=== PATIENT | female | born 1960 | race Caucasian/White ===

== ENCOUNTER 2020-03-29 16:24 | Outpatient (REF) | payer MEDICARE, MEDICAID, SELFPAY ==
[2020-03-29 17:43] LABS: MANUAL DIFF FLAG NO
[2020-03-29 18:03] LABS: Basophils Percent Auto 0.5 % (0-2); Hematocrit 45.6 % (37-47); Hemoglobin 13.7 g/dl (12.0-16.0); Imm Gran Abs Auto 0.03 X10*3/uL (0.00-0.03); Imm Gran Pct Auto 0.4 % (0.0-0.4); Lymphocytes Absolute Auto 1.7 X10*3/uL (1.2-4.9); Mean Corpuscular Hemoglobin 31.1 pg (27.0-33.0); Mean Corpuscular Volume 103.6 fL (80-98); Mean Platelet Volume 11.6 fL (9.4-12.3); Monocytes Absolute Auto 0.5 X10*3/uL (0.1-1.2); Monocytes Percent Auto 6.9 % (2-11); Neutrophils Absolute Auto 5.3 X10*3/uL (2.0-8.3); Neutrophils Percent Auto 70.2 % (45-73); Platelet Count 179 X10*3/uL (160-400); Red Cell Distribution Width 13.5 % (11.0-16.0); White Blood Count 7.5 X10*3/uL (4.8-10.8)
== END 2020-03-29 16:25 | disposition home or self-care (01) ==
LOC: HO.LABR 16:24
PROVIDERS: Visit Provider Psychiatry & Neurology Child & Adolescent Psychiatry
DX: F25.9 Schizoaffective disorder, unspecified (principal)
CPT/HCPCS: 36415; 85025

== ENCOUNTER 2020-04-29 15:21 | Outpatient (REF) | payer MEDICARE, MEDICAID, SELFPAY ==
[2020-04-29 16:42] LABS: MANUAL DIFF FLAG NO
[2020-04-29 16:49] LABS: Basophils Percent Auto 0.4 % (0-2); Hematocrit 43.7 % (37-47); Hemoglobin 13.1 g/dl (12.0-16.0); Imm Gran Abs Auto 0.03 X10*3/uL (0.00-0.03); Imm Gran Pct Auto 0.4 % (0.0-0.4); Lymphocytes Absolute Auto 1.5 X10*3/uL (1.2-4.9); Mean Corpuscular Hemoglobin 30.8 pg (27.0-33.0); Mean Corpuscular Volume 102.6 fL (80-98); Mean Platelet Volume 11.2 fL (9.4-12.3); Monocytes Absolute Auto 0.4 X10*3/uL (0.1-1.2); Monocytes Percent Auto 5.5 % (2-11); Neutrophils Absolute Auto 4.8 X10*3/uL (2.0-8.3); Neutrophils Percent Auto 71.7 % (45-73); Platelet Count 168 X10*3/uL (160-400); Red Blood Count 4.26 X10*6/uL (4.20-5.50); Red Cell Distribution Width 13.8 % (11.0-16.0); White Blood Count 6.7 X10*3/uL (4.8-10.8)
[2020-04-29 17:17] LABS: Albumin Level 4.2 g/dL (3.5-5.0); Anion Gap 15 (12-20); Blood Urea Nitrogen 24 mg/dL (9-16); Calcium 8.8 mg/dL (8.4-10.2); Carbon Dioxide 25 mmol/L (22-29); Chloride 108 mmol/L (96-108); Estimated Glomerular Filt Rate 23; Magnesium 2.1 mg/dL (1.6-2.6); Phosphorus 3.1 mg/dL (2.7-4.5); Potassium 4.1 mmol/l (3.3-5.1); Sodium 144 mmol/L (135-145)
[2020-04-29 17:41] LABS: Vitamin D 25-OH Total 21.6 ng/mL (>30)
[2020-04-29 18:31] LABS: Renal w Reflex Lab Use Only Order verified
[2020-05-01 10:42] LABS: Calcium (PTHI) 9.1 mg/dL (8.6-10.4); PTHI 141 pg/mL (14-64)
== END 2020-04-29 15:22 | disposition home or self-care (01) ==
LOC: HO.LABR 15:21
PROVIDERS: Absent Provider Internal Medicine Nephrology; PCP Internal Medicine; Visit Provider Psychiatry & Neurology Child & Adolescent Psychiatry
DX: F25.9 Schizoaffective disorder, unspecified (principal); N18.4 Chronic kidney disease, stage 4 (severe)
CPT/HCPCS: 36415; 80051; 81003; 82040; 82043; 82306; 82310; 82565; 83735; 83970; 84100; 84156; 84520; 85025

== ENCOUNTER 2020-05-28 13:13 | Outpatient (REF) | payer MEDICARE, MEDICAID, SELFPAY ==
[2020-05-28 14:07] LABS: MANUAL DIFF FLAG NO
[2020-05-28 14:10] LABS: Basophils Percent Auto 0.4 % (0-2); Hematocrit 42.1 % (37-47); Imm Gran Abs Auto 0.03 X10*3/uL (0.00-0.03); Imm Gran Pct Auto 0.4 % (0.0-0.4); Lymphocytes Absolute Auto 1.5 X10*3/uL (1.2-4.9); Lymphocytes Percent Auto 17.9 % (20-40); Mean Corpuscular HGB Conc 30.9 g/dl (31.0-35.0); Mean Corpuscular Hemoglobin 31.7 pg (27.0-33.0); Mean Corpuscular Volume 102.7 fL (80-98); Mean Platelet Volume 11.4 fL (9.4-12.3); Monocytes Absolute Auto 0.7 X10*3/uL (0.1-1.2); Monocytes Percent Auto 8.6 % (2-11); Neutrophils Absolute Auto 5.9 X10*3/uL (2.0-8.3); Neutrophils Percent Auto 72.7 % (45-73); Platelet Count 168 X10*3/uL (160-400); Red Cell Distribution Width 13.4 % (11.0-16.0); White Blood Count 8.2 X10*3/uL (4.8-10.8)
== END 2020-05-28 13:14 | disposition home or self-care (01) ==
LOC: HO.LABR 13:13
PROVIDERS: PCP Internal Medicine; Visit Provider Psychiatry & Neurology Child & Adolescent Psychiatry
DX: F25.9 Schizoaffective disorder, unspecified (principal)
CPT/HCPCS: 36415; 85025

== ENCOUNTER 2020-06-26 12:55 | Outpatient (REF) | payer MEDICARE, MEDICAID, SELFPAY ==
--- NOTE | 2020-06-26 13:10 | ECG_ITS ---
Test Reason : HIGH RISK MEDICATION Blood Pressure : / mmHG Vent. Rate : 098 BPM Atrial Rate : 098 BPM P-R Int : 184 ms QRS Dur : 082 ms QT Int : 354 ms P-R-T Axes : 049 -26 046 degrees QTc Int : 451 ms Normal sinus rhythm Normal ECG When compared with ECG of 10-OCT-2018 12:29, No significant change was found Referred By: Juan Godoy Electronically Signed By:NATALY LANGFORD MD
[2020-06-26 13:32] LABS: MANUAL DIFF FLAG NO
[2020-06-26 13:42] LABS: Basophils Percent Auto 0.3 % (0-2); Hemoglobin 13.5 g/dl (12.0-16.0); Imm Gran Abs Auto 0.03 X10*3/uL (0.00-0.03); Imm Gran Pct Auto 0.5 % (0.0-0.4); Lymphocytes Absolute Auto 1.3 X10*3/uL (1.2-4.9); Lymphocytes Percent Auto 22.8 % (20-40); Mean Corpuscular Hemoglobin 31.1 pg (27.0-33.0); Mean Corpuscular Volume 103.7 fL (80-98); Monocytes Absolute Auto 0.4 X10*3/uL (0.1-1.2); Neutrophils Absolute Auto 4.1 X10*3/uL (2.0-8.3); Neutrophils Percent Auto 70.4 % (45-73); Platelet Count 160 X10*3/uL (160-400); Red Blood Count 4.34 X10*6/uL (4.20-5.50); Red Cell Distribution Width 13.5 % (11.0-16.0); White Blood Count 5.8 X10*3/uL (4.8-10.8)
[2020-06-26 14:01] LABS: Ammonia 28 umol/L (13-55)
[2020-06-26 14:04] LABS: Anion Gap 13 (12-20); Blood Urea Nitrogen 21 mg/dL (9-16); C Reactive Protein 0.55 mg/dL (< or = 0.50); Calcium 8.9 mg/dL (8.4-10.2); Carbon Dioxide 26 mmol/L (22-29); Chloride 111 mmol/L (96-108); Estimated Glomerular Filt Rate 21; Glucose Random 108 mg/dL (60-115); Sodium 146 mmol/L (135-145)
[2020-06-26 14:07] LABS: Cholesterol 223 mg/dL; HDL Cholesterol 34 mg/dL; LDL Cholesterol Calculated 155 mg/dl; Triglycerides 171 mg/dL
[2020-06-26 14:11] LABS: Estimated Average Glucose 88 mg/dL; Hemoglobin A1c % 4.7 %; Troponin-I High Sensitivity 3.8 ng/L (<3.5-17.0)
[2020-06-26 14:27] LABS: Thyroid Stimulating Hormone 1.23 uIU/mL (0.32-4.0)
[2020-06-26 14:50] LABS: Folate 4.8 ng/mL (> or = 4.0)
[2020-06-27 10:52] LABS: Prolactin 10.7 ng/mL
== END 2020-06-26 12:56 | disposition home or self-care (01) ==
LOC: HO.LAB 12:55
PROVIDERS: PCP Internal Medicine; Visit Provider Psychiatry & Neurology Child & Adolescent Psychiatry
DX: F25.9 Schizoaffective disorder, unspecified (principal); Z79.899 Other long term (current) drug therapy
CPT/HCPCS: 36415; 80048; 80061; 82140; 82746; 83036; 84146; 84443; 84484; 85025; 86140; 93005

== ENCOUNTER 2020-07-26 16:34 | Outpatient (REF) | payer MEDICARE, MEDICAID, SELFPAY ==
[2020-07-26 18:10] LABS: MANUAL DIFF FLAG NO
[2020-07-26 18:47] LABS: Basophils Percent Auto 0.4 % (0-2); Hematocrit 45.9 % (37-47); Hemoglobin 13.7 g/dl (12.0-16.0); Imm Gran Abs Auto 0.03 X10*3/uL (0.00-0.03); Imm Gran Pct Auto 0.4 % (0.0-0.4); Lymphocytes Absolute Auto 1.1 X10*3/uL (1.2-4.9); Lymphocytes Percent Auto 16.7 % (20-40); Mean Corpuscular HGB Conc 29.8 g/dl (31.0-35.0); Mean Corpuscular Hemoglobin 31.1 pg (27.0-33.0); Mean Corpuscular Volume 104.3 fL (80-98); Mean Platelet Volume 11.4 fL (9.4-12.3); Monocytes Absolute Auto 0.3 X10*3/uL (0.1-1.2); Neutrophils Absolute Auto 5.3 X10*3/uL (2.0-8.3); Neutrophils Percent Auto 77.5 % (45-73); Platelet Count 175 X10*3/uL (160-400); Red Cell Distribution Width 13.5 % (11.0-16.0); White Blood Count 6.8 X10*3/uL (4.8-10.8)
== END 2020-07-26 16:35 | disposition home or self-care (01) ==
LOC: HO.LABR 16:34
PROVIDERS: PCP Internal Medicine; Visit Provider Psychiatry & Neurology Child & Adolescent Psychiatry
DX: F25.9 Schizoaffective disorder, unspecified (principal)
CPT/HCPCS: 36415; 85025

== ENCOUNTER 2020-08-23 16:06 | Outpatient (REF) | payer MEDICARE, MEDICAID, SELFPAY ==
[2020-08-23 17:45] LABS: MANUAL DIFF FLAG NO
[2020-08-23 18:10] LABS: Basophils Percent Auto 0.3 % (0-2); Hematocrit 44.6 % (37-47); Hemoglobin 13.4 g/dl (12.0-16.0); Imm Gran Abs Auto 0.03 X10*3/uL (0.00-0.03); Imm Gran Pct Auto 0.5 % (0.0-0.4); Lymphocytes Absolute Auto 1.2 X10*3/uL (1.2-4.9); Lymphocytes Percent Auto 18.6 % (20-40); Mean Corpuscular Hemoglobin 31.2 pg (27.0-33.0); Mean Corpuscular Volume 103.7 fL (80-98); Mean Platelet Volume 11.3 fL (9.4-12.3); Monocytes Absolute Auto 0.3 X10*3/uL (0.1-1.2); Neutrophils Absolute Auto 4.8 X10*3/uL (2.0-8.3); Neutrophils Percent Auto 75.6 % (45-73); Platelet Count 195 X10*3/uL (160-400); Red Cell Distribution Width 13.6 % (11.0-16.0); White Blood Count 6.4 X10*3/uL (4.8-10.8)
== END 2020-08-23 16:07 | disposition home or self-care (01) ==
LOC: HO.LABR 16:06
PROVIDERS: PCP Internal Medicine; Visit Provider Psychiatry & Neurology Child & Adolescent Psychiatry
DX: F25.9 Schizoaffective disorder, unspecified (principal)
CPT/HCPCS: 36415; 85025

== ENCOUNTER 2020-09-23 17:13 | Outpatient (REF) | payer MEDICARE, MEDICAID, SELFPAY ==
[2020-09-23 17:55] LABS: MANUAL DIFF FLAG NO
[2020-09-23 18:04] LABS: Basophils Percent Auto 0.6 % (0-2); Hematocrit 44.9 % (37-47); Hemoglobin 13.8 g/dl (12.0-16.0); Imm Gran Abs Auto 0.02 X10*3/uL (0.00-0.03); Imm Gran Pct Auto 0.3 % (0.0-0.4); Lymphocytes Absolute Auto 1.8 X10*3/uL (1.2-4.9); Lymphocytes Percent Auto 25.1 % (20-40); Mean Corpuscular HGB Conc 30.7 g/dl (31.0-35.0); Mean Corpuscular Hemoglobin 30.9 pg (27.0-33.0); Mean Corpuscular Volume 100.4 fL (80-98); Monocytes Absolute Auto 0.4 X10*3/uL (0.1-1.2); Monocytes Percent Auto 5.1 % (2-11); Neutrophils Percent Auto 68.9 % (45-73); Platelet Count 191 X10*3/uL (160-400); Red Blood Count 4.47 X10*6/uL (4.20-5.50); Red Cell Distribution Width 13.4 % (11.0-16.0); White Blood Count 7.2 X10*3/uL (4.8-10.8)
== END 2020-09-23 17:14 | disposition home or self-care (01) ==
LOC: HO.LABR 17:13
PROVIDERS: PCP Internal Medicine; Visit Provider Psychiatry & Neurology Child & Adolescent Psychiatry
DX: F25.9 Schizoaffective disorder, unspecified (principal)
CPT/HCPCS: 36415; 85025

== ENCOUNTER 2020-10-23 15:48 | Outpatient (REF) | payer MEDICARE, MEDICAID, SELFPAY ==
[2020-10-23 16:23] LABS: MANUAL DIFF FLAG NO
[2020-10-23 16:29] LABS: Basophils Percent Auto 0.5 % (0-2); Hematocrit 42.8 % (37-47); Hemoglobin 13.2 g/dl (12.0-16.0); Imm Gran Abs Auto 0.03 X10*3/uL (0.00-0.03); Imm Gran Pct Auto 0.4 % (0.0-0.4); Lymphocytes Absolute Auto 1.4 X10*3/uL (1.2-4.9); Lymphocytes Percent Auto 17.9 % (20-40); Mean Corpuscular HGB Conc 30.8 g/dl (31.0-35.0); Mean Corpuscular Hemoglobin 31.4 pg (27.0-33.0); Mean Corpuscular Volume 101.9 fL (80-98); Mean Platelet Volume 10.7 fL (9.4-12.3); Monocytes Absolute Auto 0.5 X10*3/uL (0.1-1.2); Monocytes Percent Auto 6.1 % (2-11); Neutrophils Percent Auto 75.1 % (45-73); Platelet Count 184 X10*3/uL (160-400); Red Cell Distribution Width 13.8 % (11.0-16.0)
== END 2020-10-23 15:49 | disposition home or self-care (01) ==
LOC: HO.LABR 15:48
PROVIDERS: PCP Internal Medicine; Visit Provider Psychiatry & Neurology Child & Adolescent Psychiatry
DX: F25.9 Schizoaffective disorder, unspecified (principal)
CPT/HCPCS: 36415; 85025

== ENCOUNTER 2020-11-04 16:15 | Outpatient (REF) | payer MEDICARE, MEDICAID, SELFPAY ==
[2020-11-04 17:39] LABS: MANUAL DIFF FLAG NO
[2020-11-04 17:44] LABS: Basophils Percent Auto 0.5 % (0-2); Hematocrit 44.4 % (37-47); Hemoglobin 13.6 g/dl (12.0-16.0); Imm Gran Abs Auto 0.03 X10*3/uL (0.00-0.03); Imm Gran Pct Auto 0.5 % (0.0-0.4); Lymphocytes Absolute Auto 1.3 X10*3/uL (1.2-4.9); Lymphocytes Percent Auto 20.5 % (20-40); Mean Corpuscular HGB Conc 30.6 g/dl (31.0-35.0); Mean Corpuscular Hemoglobin 31.3 pg (27.0-33.0); Mean Corpuscular Volume 102.1 fL (80-98); Mean Platelet Volume 11.1 fL (9.4-12.3); Monocytes Absolute Auto 0.3 X10*3/uL (0.1-1.2); Monocytes Percent Auto 5.4 % (2-11); Neutrophils Absolute Auto 4.6 X10*3/uL (2.0-8.3); Neutrophils Percent Auto 73.1 % (45-73); Platelet Count 195 X10*3/uL (160-400); Red Blood Count 4.35 X10*6/uL (4.20-5.50); White Blood Count 6.3 X10*3/uL (4.8-10.8)
[2020-11-04 18:21] LABS: Albumin Level 4.3 g/dL (3.5-5.0); Anion Gap 17 (12-20); Blood Urea Nitrogen 20 mg/dL (9-16); Calcium 9.5 mg/dL (8.4-10.2); Carbon Dioxide 22 mmol/L (22-29); Chloride 117 mmol/L (96-108); Estimated Glomerular Filt Rate 19; Magnesium 2.1 mg/dL (1.6-2.6); Phosphorus 3.2 mg/dL (2.7-4.5); Potassium 4.1 mmol/L (3.3-5.1); Sodium 152 mmol/L (135-145)
[2020-11-05 13:31] LABS: Calcium (PTHI) 9.5 mg/dL (8.6-10.4); PTHI 135 pg/mL (14-64)
== END 2020-11-04 16:16 | disposition home or self-care (01) ==
LOC: HO.LAB 16:15
PROVIDERS: PCP Internal Medicine; Visit Provider Internal Medicine Nephrology
DX: N18.4 Chronic kidney disease, stage 4 (severe) (principal)
CPT/HCPCS: 36415; 80051; 82040; 82310; 82565; 83735; 83970; 84100; 84520; 85025

== ENCOUNTER 2020-11-05 15:53 | Outpatient (REF) | payer MEDICARE, MEDICAID, SELFPAY ==
[2020-11-05 16:34] LABS: Glucose Urine UA NEG (NEG); Leukocyte Esterase Urine NEG (NEG); Nitrite Urine NEG (NEG); Specific Gravity - Urine <= 1.005 (1.005-1.025); Urine Blood TRACE (NEG); Urine Ketones NEG (NEG); Urine Protein NEG (NEG-TRACE)
[2020-11-05 16:43] LABS: Appearance Urine CLEAR
[2020-11-05 16:44] LABS: Color Urine STRAW
[2020-11-05 16:52] LABS: Renal w Reflex-LAB USE ONLY Order Verified
[2020-11-05 17:00] LABS: Microalbumin Urine < 5.0 mg/L; Total Protein Urine Random < 7 mg/dL (<12)
[2020-11-05 17:55] LABS: Bacteria Urine 3+ /LPF; RBC Urine 0 /HPF (0); Renal Epithelial Cells Urine 1+ /LPF; Squamous Epithelial Cell Urine 3+ /LPF
== END 2020-11-05 15:54 | disposition home or self-care (01) ==
LOC: HO.LNP 15:53
PROVIDERS: Visit Provider Internal Medicine Nephrology
DX: N18.4 Chronic kidney disease, stage 4 (severe) (principal)
CPT/HCPCS: 81001; 82043; 84156

== ENCOUNTER 2020-11-27 15:52 | Outpatient (REF) | payer MEDICARE, MEDICAID, SELFPAY ==
[2020-11-27 17:03] LABS: MANUAL DIFF FLAG NO
[2020-11-27 17:05] LABS: Basophils Percent Auto 0.5 % (0-2); Hemoglobin 12.9 g/dl (12.0-16.0); Imm Gran Abs Auto 0.02 X10*3/uL (0.00-0.03); Imm Gran Pct Auto 0.3 % (0.0-0.4); Lymphocytes Absolute Auto 1.1 X10*3/uL (1.2-4.9); Lymphocytes Percent Auto 17.6 % (20-40); Mean Corpuscular HGB Conc 30.7 g/dl (31.0-35.0); Mean Corpuscular Hemoglobin 31.4 pg (27.0-33.0); Mean Corpuscular Volume 102.2 fL (80-98); Mean Platelet Volume 10.7 fL (9.4-12.3); Monocytes Absolute Auto 0.3 X10*3/uL (0.1-1.2); Monocytes Percent Auto 4.1 % (2-11); Neutrophils Absolute Auto 4.9 X10*3/uL (2.0-8.3); Neutrophils Percent Auto 77.5 % (45-73); Platelet Count 190 X10*3/uL (160-400); Red Blood Count 4.11 X10*6/uL (4.20-5.50); White Blood Count 6.3 X10*3/uL (4.8-10.8)
[2020-12-02 07:52] LABS: Norclozapine 491 mcg/L (25-400)
[2020-12-02 09:19] LABS: Clozapine (Clozaril) 1120
== END 2020-11-27 15:53 | disposition home or self-care (01) ==
LOC: HO.LABR 15:52
PROVIDERS: PCP Internal Medicine; Visit Provider Psychiatry & Neurology Child & Adolescent Psychiatry
DX: F25.9 Schizoaffective disorder, unspecified (principal)
CPT/HCPCS: 36415; 80159; 85025

== ENCOUNTER 2020-12-13 15:37 | Outpatient (REF) | payer MEDICARE, MEDICAID, SELFPAY ==
[2020-12-13 16:18] LABS: C Reactive Protein 1.16 mg/dL (< or = 0.50)
[2020-12-13 16:25] LABS: Troponin-I High Sensitivity 3.6 ng/L (<3.5-17.0)
[2020-12-17 21:10] LABS: Norclozapine 320 mcg/L (25-400)
[2020-12-18 11:00] LABS: Clozapine (Clozaril) 904
== END 2020-12-13 15:38 | disposition home or self-care (01) ==
LOC: HO.LAB 15:37
PROVIDERS: PCP Internal Medicine; Visit Provider Psychiatry & Neurology Child & Adolescent Psychiatry
DX: F25.9 Schizoaffective disorder, unspecified (principal); N17.9 Acute kidney failure, unspecified; Z79.899 Other long term (current) drug therapy
CPT/HCPCS: 36415; 80159; 84484; 86140

== ENCOUNTER 2021-01-13 15:51 | Outpatient (REF) | payer MEDICARE, MEDICAID, SELFPAY ==
[2021-01-13 16:11] LABS: MANUAL DIFF FLAG NO
[2021-01-13 16:52] LABS: Basophils Percent Auto 0.4 % (0-2); Hematocrit 40.8 % (37-47); Hemoglobin 12.6 g/dl (12.0-16.0); Imm Gran Abs Auto 0.05 X10*3/uL (0.00-0.03); Imm Gran Pct Auto 0.7 % (0.0-0.4); Lymphocytes Absolute Auto 1.3 X10*3/uL (1.2-4.9); Lymphocytes Percent Auto 18.6 % (20-40); Mean Corpuscular HGB Conc 30.9 g/dl (31.0-35.0); Mean Corpuscular Hemoglobin 31.3 pg (27.0-33.0); Mean Corpuscular Volume 101.2 fL (80-98); Mean Platelet Volume 10.9 fL (9.4-12.3); Monocytes Absolute Auto 0.6 X10*3/uL (0.1-1.2); Monocytes Percent Auto 8.2 % (2-11); Neutrophils Absolute Auto 5.1 X10*3/uL (2.0-8.3); Neutrophils Percent Auto 72.1 % (45-73); Platelet Count 188 X10*3/uL (160-400); Red Blood Count 4.03 X10*6/uL (4.20-5.50); Red Cell Distribution Width 13.5 % (11.0-16.0)
== END 2021-01-13 15:52 | disposition home or self-care (01) ==
LOC: HO.LABR 15:51
PROVIDERS: PCP Internal Medicine; Visit Provider Psychiatry & Neurology Child & Adolescent Psychiatry
DX: F25.9 Schizoaffective disorder, unspecified (principal)
CPT/HCPCS: 36415; 85025

== ENCOUNTER 2021-01-31 15:10 | Outpatient (REF) | payer MEDICARE, MEDICAID, SELFPAY ==
[2021-01-31 16:08] LABS: Basophils Percent Auto 0.4 % (0-2); Hematocrit 39.9 % (37-47); Hemoglobin 12.5 g/dl (12.0-16.0); Imm Gran Abs Auto 0.03 X10*3/uL (0.00-0.03); Imm Gran Pct Auto 0.4 % (0.0-0.4); Lymphocytes Absolute Auto 1.6 X10*3/uL (1.2-4.9); Lymphocytes Percent Auto 21.7 % (20-40); MANUAL DIFF FLAG NO; Mean Corpuscular HGB Conc 31.3 g/dl (31.0-35.0); Mean Corpuscular Hemoglobin 31.6 pg (27.0-33.0); Mean Corpuscular Volume 100.8 fL (80-98); Mean Platelet Volume 11.1 fL (9.4-12.3); Monocytes Absolute Auto 0.6 X10*3/uL (0.1-1.2); Neutrophils Absolute Auto 5.2 X10*3/uL (2.0-8.3); Neutrophils Percent Auto 69.5 % (45-73); Platelet Count 188 X10*3/uL (160-400); Red Blood Count 3.96 X10*6/uL (4.20-5.50); Red Cell Distribution Width 13.3 % (11.0-16.0); White Blood Count 7.5 X10*3/uL (4.8-10.8)
[2021-01-31 16:12] LABS: Appearance Urine HAZY; Color Urine YELLOW; Glucose Urine UA NEG (NEG); Leukocyte Esterase Urine 1+ (NEG); Nitrite Urine NEG (NEG); Specific Gravity - Urine <= 1.005 (1.005-1.025); Urine Blood NEG (NEG); Urine Ketones NEG (NEG); Urine Protein NEG (NEG-TRACE)
[2021-01-31 16:19] LABS: Bacteria Urine 1+ /LPF; RBC Urine 0-2 /HPF (0); Squamous Epithelial Cell Urine 3+ /LPF
[2021-01-31 16:30] LABS: Creatinine Urine 29.47 mg/dL; Microalbum/Creatinine Ratio Ur 33.9 ug/mg cr; Total Protein Urine Random < 7 mg/dL (<12)
[2021-01-31 16:36] LABS: Albumin Level 4.1 g/dL (3.5-5.0); Anion Gap 14 (12-20); Blood Urea Nitrogen 20 mg/dL (9-16); Calcium 8.6 mg/dL (8.4-10.2); Carbon Dioxide 22 mmol/L (22-29); Chloride 109 mmol/L (96-108); Estimated Glomerular Filt Rate 20; Magnesium 2.1 mg/dL (1.6-2.6); Phosphorus 3.3 mg/dL (2.7-4.5); Potassium 4.4 mmol/L (3.3-5.1); Sodium 141 mmol/L (135-145)
[2021-01-31 16:56] LABS: Vitamin D 25-OH Total 17.1 ng/mL (>30)
[2021-02-04 01:37] LABS: Calcium (PTHI) 8.9 mg/dL (8.6-10.4); PTHI 200 pg/mL (14-64)
== END 2021-01-31 15:11 | disposition home or self-care (01) ==
LOC: HO.LAB 15:10
PROVIDERS: PCP Internal Medicine; Visit Provider Internal Medicine Nephrology
DX: N18.4 Chronic kidney disease, stage 4 (severe) (principal); N25.0 Renal osteodystrophy
CPT/HCPCS: 36415; 80051; 81001; 81003; 82040; 82043; 82306; 82310; 82565; 83735; 83970; 84100; 84156; 84520; 85025; 87086

== ENCOUNTER 2021-02-06 14:31 | Outpatient (REF) | payer MEDICARE, MEDICAID, SELFPAY ==
[2021-02-06 14:41] LABS: MANUAL DIFF FLAG NO
[2021-02-06 15:26] LABS: Basophils Percent Auto 0.4 % (0-2); Hematocrit 42.4 % (37-47); Hemoglobin 13.2 g/dl (12.0-16.0); Imm Gran Abs Auto 0.03 X10*3/uL (0.00-0.03); Imm Gran Pct Auto 0.4 % (0.0-0.4); Lymphocytes Absolute Auto 1.5 X10*3/uL (1.2-4.9); Mean Corpuscular HGB Conc 31.1 g/dl (31.0-35.0); Mean Corpuscular Hemoglobin 31.5 pg (27.0-33.0); Mean Corpuscular Volume 101.2 fL (80-98); Mean Platelet Volume 11.5 fL (9.4-12.3); Monocytes Absolute Auto 0.5 X10*3/uL (0.1-1.2); Monocytes Percent Auto 7.1 % (2-11); Neutrophils Absolute Auto 5.6 X10*3/uL (2.0-8.3); Neutrophils Percent Auto 73.1 % (45-73); Platelet Count 186 X10*3/uL (160-400); Red Blood Count 4.19 X10*6/uL (4.20-5.50); Red Cell Distribution Width 13.4 % (11.0-16.0); White Blood Count 7.7 X10*3/uL (4.8-10.8)
== END 2021-02-06 14:32 | disposition home or self-care (01) ==
LOC: HO.LABR 14:31
PROVIDERS: PCP Internal Medicine; Visit Provider Psychiatry & Neurology Child & Adolescent Psychiatry
DX: F25.9 Schizoaffective disorder, unspecified (principal)
CPT/HCPCS: 36415; 85025

== ENCOUNTER 2021-02-21 15:47 | Outpatient (REF) | payer MEDICARE, MEDICAID, SELFPAY ==
[2021-02-21 16:03] LABS: MANUAL DIFF FLAG NO
[2021-02-21 16:30] LABS: Basophils Percent Auto 0.4 % (0-2); Hematocrit 42.3 % (37.0-47.0); Hemoglobin 13.2 g/dl (12.0-16.0); Imm Gran Abs Auto 0.03 X10*3/uL (0.00-0.03); Imm Gran Pct Auto 0.4 % (0.0-0.4); Lymphocytes Absolute Auto 1.4 X10*3/uL (1.2-4.9); Lymphocytes Percent Auto 19.6 % (20-40); Mean Corpuscular HGB Conc 31.2 g/dl (31.0-35.0); Mean Corpuscular Hemoglobin 31.5 pg (27.0-33.0); Mean Platelet Volume 10.9 fL (9.4-12.3); Monocytes Absolute Auto 0.6 X10*3/uL (0.1-1.2); Monocytes Percent Auto 7.5 % (2-11); Neutrophils Absolute Auto 5.3 x10*3/uL (2.0-8.3); Neutrophils Percent Auto 72.1 % (45-73); Platelet Count 183 X10*3/uL (160-400); Red Blood Count 4.19 X10*6/uL (4.20-5.50); Red Cell Distribution Width 13.4 % (11.0-16.0); White Blood Count 7.3 X10*3/uL (4.8-10.8)
== END 2021-02-21 15:48 | disposition home or self-care (01) ==
LOC: HO.LABR 15:47
PROVIDERS: Visit Provider Psychiatry & Neurology Child & Adolescent Psychiatry
DX: F25.9 Schizoaffective disorder, unspecified (principal)
CPT/HCPCS: 36415; 85025

== ENCOUNTER 2021-03-13 17:17 | Outpatient (REF) | payer MEDICARE, MEDICAID, SELFPAY ==
[2021-03-13 17:57] LABS: C Reactive Protein 1.44 mg/dL (< or = 0.50)
[2021-03-13 18:06] LABS: Troponin-I High Sensitivity 5.1 ng/L (<3.5-17.0)
[2021-03-17 09:31] LABS: Clozapine (Clozaril) 659 mcg/L; Norclozapine 272 mcg/L (25-400)
== END 2021-03-13 17:18 | disposition home or self-care (01) ==
LOC: HO.LAB 17:17
PROVIDERS: PCP Internal Medicine; Visit Provider Psychiatry & Neurology Child & Adolescent Psychiatry
DX: F25.9 Schizoaffective disorder, unspecified (principal); Z79.899 Other long term (current) drug therapy
CPT/HCPCS: 36415; 80159; 84484; 86140

== ENCOUNTER 2021-04-15 15:33 | Outpatient (REF) | payer MEDICARE, MEDICAID, SELFPAY ==
[2021-04-15 15:49] LABS: MANUAL DIFF FLAG NO
[2021-04-15 15:59] LABS: Basophils Percent Auto 0.5 % (0-2); Hematocrit 43.3 % (37.0-47.0); Hemoglobin 13.1 g/dl (12.0-16.0); Imm Gran Abs Auto 0.03 X10*3/uL (0.00-0.03); Imm Gran Pct Auto 0.5 % (0.0-0.4); Lymphocytes Absolute Auto 1.2 X10*3/uL (1.2-4.9); Lymphocytes Percent Auto 18.7 % (20-40); Mean Corpuscular HGB Conc 30.3 g/dl (31.0-35.0); Mean Corpuscular Hemoglobin 31.1 pg (27.0-33.0); Mean Corpuscular Volume 102.9 fL (80.0-98.0); Mean Platelet Volume 10.9 fL (9.4-12.3); Monocytes Absolute Auto 0.5 X10*3/uL (0.1-1.2); Monocytes Percent Auto 7.4 % (2-11); Neutrophils Absolute Auto 4.5 x10*3/uL (2.0-8.3); Neutrophils Percent Auto 72.9 % (45-73); Platelet Count 163 X10*3/uL (160-400); Red Blood Count 4.21 X10*6/uL (4.20-5.50); Red Cell Distribution Width 13.7 % (11.0-16.0); White Blood Count 6.2 X10*3/uL (4.8-10.8)
== END 2021-04-15 15:34 | disposition home or self-care (01) ==
LOC: HO.LABR 15:33
PROVIDERS: PCP Internal Medicine; Visit Provider Psychiatry & Neurology Child & Adolescent Psychiatry
DX: F25.9 Schizoaffective disorder, unspecified (principal)
CPT/HCPCS: 36415; 85025

== ENCOUNTER 2021-05-13 16:17 | Outpatient (REF) | payer MEDICARE, MEDICAID, SELFPAY ==
[2021-05-13 16:47] LABS: MANUAL DIFF FLAG NO
[2021-05-13 16:56] LABS: Basophils Percent Auto 0.4 % (0-2); Hematocrit 43.8 % (37.0-47.0); Hemoglobin 13.3 g/dl (12.0-16.0); Imm Gran Abs Auto 0.03 X10*3/uL (0.00-0.03); Imm Gran Pct Auto 0.4 % (0.0-0.4); Lymphocytes Absolute Auto 1.3 X10*3/uL (1.2-4.9); Lymphocytes Percent Auto 18.8 % (20-40); Mean Corpuscular HGB Conc 30.4 g/dl (31.0-35.0); Mean Corpuscular Volume 102.1 fL (80.0-98.0); Mean Platelet Volume 10.6 fL (9.4-12.3); Monocytes Absolute Auto 0.4 X10*3/uL (0.1-1.2); Monocytes Percent Auto 5.5 % (2-11); Neut%MD 74.9 %; Neutrophils Absolute Auto 5.2 x10*3/uL (2.0-8.3); Neutrophils Percent Auto 74.9 % (45-73); Platelet Count 185 X10*3/uL (160-400); Red Blood Count 4.29 X10*6/uL (4.20-5.50); Red Cell Distribution Width 13.7 % (11.0-16.0)
[2021-05-17 14:26] LABS: Clozapine (Clozaril) 825 mcg/L; Norclozapine 285 mcg/L (25-400)
== END 2021-05-13 16:18 | disposition home or self-care (01) ==
LOC: HO.LABR 16:17
PROVIDERS: PCP Internal Medicine; Visit Provider Psychiatry & Neurology Child & Adolescent Psychiatry
DX: F25.9 Schizoaffective disorder, unspecified (principal)
CPT/HCPCS: 36415; 80159; 85025

== ENCOUNTER 2021-06-05 16:20 | Outpatient (REF) | payer MEDICARE, MEDICAID, SELFPAY ==
[2021-06-05 16:42] LABS: MANUAL DIFF FLAG NO
[2021-06-05 17:10] LABS: Basophils Absolute Auto 0.1 X10*3/uL (0.0-0.2); Basophils Percent Auto 0.6 % (0-2); Hematocrit 42.2 % (37.0-47.0); Imm Gran Abs Auto 0.03 X10*3/uL (0.00-0.03); Imm Gran Pct Auto 0.4 % (0.0-0.4); Lymphocytes Absolute Auto 1.6 X10*3/uL (1.2-4.9); Lymphocytes Percent Auto 19.5 % (20-40); Mean Corpuscular HGB Conc 30.8 g/dl (31.0-35.0); Mean Corpuscular Hemoglobin 31.6 pg (27.0-33.0); Mean Corpuscular Volume 102.7 fL (80.0-98.0); Mean Platelet Volume 11.1 fL (9.4-12.3); Monocytes Absolute Auto 0.5 X10*3/uL (0.1-1.2); Monocytes Percent Auto 5.9 % (2-11); Neutrophils Absolute Auto 5.9 x10*3/uL (2.0-8.3); Neutrophils Percent Auto 73.6 % (45-73); Platelet Count 173 X10*3/uL (160-400); Red Blood Count 4.11 X10*6/uL (4.20-5.50); Red Cell Distribution Width 13.7 % (11.0-16.0)
[2021-06-05 17:36] LABS: Albumin Level 4.1 g/dL (3.5-5.0); Anion Gap 13 (12-20); Blood Urea Nitrogen 23 mg/dL (9-16); Calcium 9.5 mg/dL (8.4-10.2); Carbon Dioxide 26 mmol/L (22-29); Chloride 111 mmol/L (96-108); Estimated Glomerular Filt Rate 19; Phosphorus 3.6 mg/dL (2.7-4.5); Potassium 4.5 mmol/L (3.3-5.1); Sodium 145 mmol/L (135-145)
[2021-06-05 17:58] LABS: Vitamin D 25-OH Total 25.9 ng/mL (>30)
[2021-06-06 17:16] LABS: Calcium (PTHI) 9.2 mg/dL (8.6-10.4); PTHI 150 pg/mL (14-64)
== END 2021-06-05 16:21 | disposition home or self-care (01) ==
LOC: HO.LAB 16:20
PROVIDERS: PCP Internal Medicine; Visit Provider Internal Medicine Nephrology
DX: E66.8 Other obesity (principal); N25.0 Renal osteodystrophy; N18.4 Chronic kidney disease, stage 4 (severe)
CPT/HCPCS: 36415; 80051; 82040; 82306; 82310; 82565; 83735; 83970; 84100; 84520; 85025

== ENCOUNTER 2021-06-06 14:03 | Outpatient (REF) | payer MEDICARE, MEDICAID, SELFPAY ==
[2021-06-06 14:16] LABS: Appearance Urine HAZY; Color Urine STRAW; Glucose Urine UA NEG (NEG); Leukocyte Esterase Urine TRACE (NEG); Nitrite Urine NEG (NEG); Specific Gravity - Urine <= 1.005 (1.005-1.025); Urine Blood NEG (NEG); Urine Ketones NEG (NEG); Urine Protein NEG (NEG-TRACE)
[2021-06-06 14:26] LABS: Bacteria Urine 1+ /LPF; Mucus Urine TRACE /LPF; RBC Urine 0 /HPF (0); Squamous Epithelial Cell Urine 2+ /LPF
[2021-06-06 16:43] LABS: Creatinine Urine 19.55 mg/dL; Microalbumin Urine < 5.0 mg/L; Total Protein Urine Random < 7 mg/dL (<12)
== END 2021-06-06 14:04 | disposition home or self-care (01) ==
LOC: HO.LNP 14:03
PROVIDERS: Visit Provider Internal Medicine Nephrology
DX: E66.8 Other obesity (principal); N18.4 Chronic kidney disease, stage 4 (severe); N25.0 Renal osteodystrophy
CPT/HCPCS: 81001; 82043; 84156; 87086

== ENCOUNTER 2021-07-17 17:20 | Outpatient (REF) | payer MEDICARE, MEDICAID, SELFPAY ==
[2021-07-17 17:31] LABS: MANUAL DIFF FLAG NO
[2021-07-17 17:48] LABS: Basophils Percent Auto 0.5 % (0-2); Hematocrit 42.8 % (37.0-47.0); Imm Gran Abs Auto 0.03 X10*3/uL (0.00-0.03); Imm Gran Pct Auto 0.5 % (0.0-0.4); Lymphocytes Absolute Auto 1.3 X10*3/uL (1.2-4.9); Lymphocytes Percent Auto 19.9 % (20-40); Mean Corpuscular HGB Conc 30.4 g/dl (31.0-35.0); Mean Corpuscular Hemoglobin 31.3 pg (27.0-33.0); Mean Corpuscular Volume 103.1 fL (80.0-98.0); Monocytes Absolute Auto 0.5 X10*3/uL (0.1-1.2); Monocytes Percent Auto 7.1 % (2-11); Neutrophils Absolute Auto 4.8 x10*3/uL (2.0-8.3); Platelet Count 164 X10*3/uL (160-400); Red Blood Count 4.15 X10*6/uL (4.20-5.50); Red Cell Distribution Width 13.6 % (11.0-16.0); WBCANC 6.6 X10*3/uL; White Blood Count 6.6 X10*3/uL (4.8-10.8)
== END 2021-07-17 17:21 | disposition home or self-care (01) ==
LOC: HO.LABR 17:20
PROVIDERS: PCP Internal Medicine; Visit Provider Psychiatry & Neurology Child & Adolescent Psychiatry
DX: F25.9 Schizoaffective disorder, unspecified (principal)
CPT/HCPCS: 36415; 85025

== ENCOUNTER 2021-08-18 16:57 | Outpatient (REF) | payer MEDICARE, MEDICAID, SELFPAY ==
[2021-08-18 17:08] LABS: MANUAL DIFF FLAG NO
[2021-08-18 17:35] LABS: Basophils Percent Auto 0.3 % (0-2); Hematocrit 40.4 % (37.0-47.0); Hemoglobin 12.6 g/dl (12.0-16.0); Imm Gran Abs Auto 0.03 X10*3/uL (0.00-0.03); Imm Gran Pct Auto 0.4 % (0.0-0.4); Lymphocytes Absolute Auto 1.3 X10*3/uL (1.2-4.9); Lymphocytes Percent Auto 17.3 % (20-40); Mean Corpuscular HGB Conc 31.2 g/dl (31.0-35.0); Mean Corpuscular Hemoglobin 31.3 pg (27.0-33.0); Mean Corpuscular Volume 100.2 fL (80.0-98.0); Mean Platelet Volume 10.7 fL (9.4-12.3); Monocytes Absolute Auto 0.5 X10*3/uL (0.1-1.2); Monocytes Percent Auto 6.3 % (2-11); Neutrophils Absolute Auto 5.5 x10*3/uL (2.0-8.3); Neutrophils Percent Auto 75.7 % (45-73); Platelet Count 167 X10*3/uL (160-400); Red Blood Count 4.03 X10*6/uL (4.20-5.50); Red Cell Distribution Width 13.8 % (11.0-16.0); White Blood Count 7.3 X10*3/uL (4.8-10.8)
== END 2021-08-18 16:58 | disposition home or self-care (01) ==
LOC: HO.LAB 16:57
PROVIDERS: PCP Internal Medicine; Visit Provider Psychiatry & Neurology Child & Adolescent Psychiatry
DX: F25.9 Schizoaffective disorder, unspecified (principal)
CPT/HCPCS: 36415; 85025

== ENCOUNTER 2021-09-16 13:30 | Outpatient (REF) | payer MEDICARE, MEDICAID, SELFPAY ==
[2021-09-16 13:44] LABS: MANUAL DIFF FLAG NO
[2021-09-16 13:59] LABS: Basophils Percent Auto 0.5 % (0-2); Hematocrit 42.2 % (37.0-47.0); Imm Gran Abs Auto 0.02 X10*3/uL (0.00-0.03); Imm Gran Pct Auto 0.3 % (0.0-0.4); Lymphocytes Absolute Auto 1.2 X10*3/uL (1.2-4.9); Lymphocytes Percent Auto 16.4 % (20-40); Mean Corpuscular HGB Conc 30.8 g/dl (31.0-35.0); Mean Corpuscular Hemoglobin 31.4 pg (27.0-33.0); Mean Corpuscular Volume 101.9 fL (80.0-98.0); Mean Platelet Volume 10.9 fL (9.4-12.3); Monocytes Absolute Auto 0.5 X10*3/uL (0.1-1.2); Monocytes Percent Auto 6.4 % (2-11); Neut%MD 76.4 %; Neutrophils Absolute Auto 5.7 x10*3/uL (2.0-8.3); Neutrophils Percent Auto 76.4 % (45-73); Platelet Count 176 X10*3/uL (160-400); Red Blood Count 4.14 X10*6/uL (4.20-5.50); Red Cell Distribution Width 13.7 % (11.0-16.0); WBCANC 7.5 X10*3/uL; White Blood Count 7.5 X10*3/uL (4.8-10.8)
== END 2021-09-16 13:31 | disposition home or self-care (01) ==
LOC: HO.LABR 13:30
PROVIDERS: PCP Internal Medicine; Visit Provider Psychiatry & Neurology Child & Adolescent Psychiatry
DX: F25.9 Schizoaffective disorder, unspecified (principal)
CPT/HCPCS: 36415; 85025

== ENCOUNTER 2021-10-16 17:02 | Outpatient (REF) | payer MEDICARE, MEDICAID, SELFPAY ==
[2021-10-16 17:18] LABS: MANUAL DIFF FLAG NO
[2021-10-16 17:24] LABS: Basophils Percent Auto 0.3 % (0-2); Hematocrit 42.8 % (37.0-47.0); Imm Gran Abs Auto 0.03 X10*3/uL (0.00-0.03); Imm Gran Pct Auto 0.4 % (0.0-0.4); Lymphocytes Absolute Auto 1.4 X10*3/uL (1.2-4.9); Lymphocytes Percent Auto 18.3 % (20-40); Mean Corpuscular HGB Conc 30.4 g/dl (31.0-35.0); Mean Corpuscular Hemoglobin 30.4 pg (27.0-33.0); Mean Platelet Volume 10.8 fL (9.4-12.3); Monocytes Absolute Auto 0.4 X10*3/uL (0.1-1.2); Monocytes Percent Auto 5.7 % (2-11); Neut%MD 75.3 %; Neutrophils Absolute Auto 5.7 x10*3/uL (2.0-8.3); Neutrophils Percent Auto 75.3 % (45-73); Platelet Count 183 X10*3/uL (160-400); Red Blood Count 4.28 X10*6/uL (4.20-5.50); Red Cell Distribution Width 13.5 % (11.0-16.0); WBCANC 7.6 X10*3/uL; White Blood Count 7.6 X10*3/uL (4.8-10.8)
== END 2021-10-16 17:03 | disposition home or self-care (01) ==
LOC: HO.LABR 17:02
PROVIDERS: PCP Internal Medicine; Visit Provider Psychiatry & Neurology Child & Adolescent Psychiatry
DX: F25.9 Schizoaffective disorder, unspecified (principal)
CPT/HCPCS: 36415; 85025

== ENCOUNTER 2021-11-17 15:59 | Outpatient (REF) | payer MEDICARE, MEDICAID, SELFPAY ==
[2021-11-17 16:18] LABS: MANUAL DIFF FLAG NO
[2021-11-17 17:14] LABS: Basophils Percent Auto 0.1 % (0-2); Hematocrit 41.1 % (37.0-47.0); Hemoglobin 12.7 g/dl (12.0-16.0); Imm Gran Abs Auto 0.03 X10*3/uL (0.00-0.03); Imm Gran Pct Auto 0.4 % (0.0-0.4); Lymphocytes Absolute Auto 1.2 X10*3/uL (1.2-4.9); Lymphocytes Percent Auto 16.1 % (20-40); Mean Corpuscular HGB Conc 30.9 g/dl (31.0-35.0); Mean Corpuscular Hemoglobin 31.2 pg (27.0-33.0); Mean Platelet Volume 11.1 fL (9.4-12.3); Monocytes Absolute Auto 0.4 X10*3/uL (0.1-1.2); Neutrophils Absolute Auto 5.7 x10*3/uL (2.0-8.3); Neutrophils Percent Auto 77.4 % (45-73); Platelet Count 184 X10*3/uL (160-400); Red Blood Count 4.07 X10*6/uL (4.20-5.50); Red Cell Distribution Width 13.5 % (11.0-16.0); White Blood Count 7.4 X10*3/uL (4.8-10.8)
== END 2021-11-17 16:00 | disposition home or self-care (01) ==
LOC: HO.LABR 15:59
PROVIDERS: Visit Provider Psychiatry & Neurology Child & Adolescent Psychiatry
DX: F25.9 Schizoaffective disorder, unspecified (principal)
CPT/HCPCS: 36415; 85025

== ENCOUNTER 2021-12-17 14:53 | Outpatient (REF) | payer MEDICARE, MEDICAID, SELFPAY ==
[2021-12-17 15:22] LABS: MANUAL DIFF FLAG NO
[2021-12-17 15:28] LABS: Basophils Percent Auto 0.4 % (0-2); Hematocrit 43.2 % (37.0-47.0); Hemoglobin 13.3 g/dl (12.0-16.0); Imm Gran Abs Auto 0.05 X10*3/uL (0.00-0.03); Imm Gran Pct Auto 0.7 % (0.0-0.4); Lymphocytes Absolute Auto 1.2 X10*3/uL (1.2-4.9); Lymphocytes Percent Auto 16.4 % (20-40); Mean Corpuscular HGB Conc 30.8 g/dl (31.0-35.0); Mean Corpuscular Hemoglobin 31.3 pg (27.0-33.0); Mean Corpuscular Volume 101.6 fL (80.0-98.0); Mean Platelet Volume 10.3 fL (9.4-12.3); Monocytes Absolute Auto 0.5 X10*3/uL (0.1-1.2); Monocytes Percent Auto 6.4 % (2-11); Neutrophils Absolute Auto 5.7 x10*3/uL (2.0-8.3); Neutrophils Percent Auto 76.1 % (45-73); Platelet Count 180 X10*3/uL (160-400); Red Blood Count 4.25 X10*6/uL (4.20-5.50); Red Cell Distribution Width 13.9 % (11.0-16.0); White Blood Count 7.5 X10*3/uL (4.8-10.8)
[2021-12-17 15:54] LABS: Albumin Level 4.2 g/dL (3.5-5.0); Anion Gap 17 (12-20); Blood Urea Nitrogen 21 mg/dL (9-16); Calcium 9.3 mg/dL (8.4-10.2); Carbon Dioxide 23 mmol/L (22-29); Chloride 111 mmol/L (96-108); Estimated Glomerular Filt Rate 18; Magnesium 2.1 mg/dL (1.6-2.6); Phosphorus 3.2 mg/dL (2.7-4.5); Potassium 4.5 mmol/L (3.3-5.1); Sodium 146 mmol/L (135-145)
[2021-12-17 16:15] LABS: Vitamin D 25-OH Total 27.2 ng/mL (>30)
[2021-12-17 18:04] LABS: Creatinine Urine 32.37 mg/dL; Microalbum/Creatinine Ratio Ur 61.7 ug/mg cr; Total Protein Urine Random < 7 mg/dL (<12)
[2021-12-17 18:12] LABS: Appearance Urine Cloudy; Color Urine Yellow; Glucose Urine UA Negative (Negative); Leukocyte Esterase Urine Negative (Negative); Nitrite Urine Negative (Negative); Specific Gravity - Urine <= 1.005 (1.005-1.025); Urine Blood Negative (Negative); Urine Ketones Negative (Negative); Urine Protein Negative (Neg-Trace)
[2021-12-18 13:17] LABS: Calcium (PTHI) 9.6 mg/dL (8.6-10.4); PTHI 164 pg/mL (16-77)
== END 2021-12-17 14:54 | disposition home or self-care (01) ==
LOC: HO.LAB 14:53
PROVIDERS: Absent Provider Psychiatry & Neurology Child & Adolescent Psychiatry; PCP Internal Medicine; Referring Provider Internal Medicine Nephrology; Visit Provider General Practice
DX: Z79.899 Other long term (current) drug therapy (principal)
CPT/HCPCS: 36415; 80051; 81003; 82040; 82043; 82306; 82310; 82565; 83735; 83970; 84100; 84156; 84520; 85025

== ENCOUNTER 2022-01-13 16:57 | Outpatient (REF) | payer MEDICARE, MEDICAID, SELFPAY ==
[2022-01-13 17:09] LABS: MANUAL DIFF FLAG NO
[2022-01-13 18:25] LABS: Basophils Percent Auto 0.6 % (0-2); Hematocrit 41.7 % (37.0-47.0); Imm Gran Abs Auto 0.03 X10*3/uL (0.00-0.03); Imm Gran Pct Auto 0.5 % (0.0-0.4); Lymphocytes Absolute Auto 1.5 X10*3/uL (1.2-4.9); Lymphocytes Percent Auto 23.5 % (20-40); Mean Corpuscular HGB Conc 31.2 g/dl (31.0-35.0); Mean Corpuscular Hemoglobin 31.6 pg (27.0-33.0); Mean Corpuscular Volume 101.2 fL (80.0-98.0); Mean Platelet Volume 11.6 fL (9.4-12.3); Monocytes Absolute Auto 0.5 X10*3/uL (0.1-1.2); Monocytes Percent Auto 7.3 % (2-11); Neutrophils Absolute Auto 4.3 x10*3/uL (2.0-8.3); Neutrophils Percent Auto 68.1 % (45-73); Platelet Count 183 X10*3/uL (160-400); Red Blood Count 4.12 X10*6/uL (4.20-5.50); Red Cell Distribution Width 13.6 % (11.0-16.0); White Blood Count 6.3 X10*3/uL (4.8-10.8)
== END 2022-01-13 16:58 | disposition home or self-care (01) ==
LOC: HO.LABR 16:57
PROVIDERS: PCP Internal Medicine; Visit Provider General Practice
DX: Z79.899 Other long term (current) drug therapy (principal)
CPT/HCPCS: 36415; 85025

== ENCOUNTER 2022-03-02 16:00 | Outpatient (REF) | payer MEDICARE, MEDICAID, SELFPAY ==
[2022-03-02 16:14] LABS: MANUAL DIFF FLAG NO
[2022-03-02 17:39] LABS: Basophils Percent Auto 0.5 % (0-2); Hematocrit 41.9 % (37.0-47.0); Hemoglobin 12.7 g/dl (12.0-16.0); Imm Gran Abs Auto 0.05 X10*3/uL (0.00-0.03); Imm Gran Pct Auto 0.6 % (0.0-0.4); Lymphocytes Absolute Auto 1.7 X10*3/uL (1.2-4.9); Lymphocytes Percent Auto 21.5 % (20-40); Mean Corpuscular HGB Conc 30.3 g/dl (31.0-35.0); Mean Corpuscular Hemoglobin 30.9 pg (27.0-33.0); Mean Corpuscular Volume 101.9 fL (80.0-98.0); Monocytes Absolute Auto 0.5 X10*3/uL (0.1-1.2); Monocytes Percent Auto 6.4 % (2-11); Neutrophils Absolute Auto 5.7 x10*3/uL (2.0-8.3); Platelet Count 205 X10*3/uL (160-400); Red Blood Count 4.11 X10*6/uL (4.20-5.50); Red Cell Distribution Width 13.6 % (11.0-16.0)
== END 2022-03-02 16:01 | disposition home or self-care (01) ==
LOC: HO.LABR 16:00
PROVIDERS: PCP Internal Medicine; Visit Provider General Practice
DX: Z79.899 Other long term (current) drug therapy (principal)
CPT/HCPCS: 36415; 85025

== ENCOUNTER 2022-05-05 13:56 | Outpatient (REF) | payer MEDICARE, MEDICAID, SELFPAY ==
[2022-05-05 14:19] LABS: MANUAL DIFF FLAG NO
[2022-05-05 15:03] LABS: Basophils Absolute Auto 0.1 X10*3/uL (0.0-0.2); Basophils Percent Auto 0.6 % (0-2); Hematocrit 42.9 % (37.0-47.0); Hemoglobin 13.1 g/dl (12.0-16.0); Imm Gran Abs Auto 0.05 X10*3/uL (0.00-0.03); Imm Gran Pct Auto 0.6 % (0.0-0.4); Lymphocytes Absolute Auto 1.6 X10*3/uL (1.2-4.9); Lymphocytes Percent Auto 17.4 % (20-40); Mean Corpuscular HGB Conc 30.5 g/dl (31.0-35.0); Mean Corpuscular Hemoglobin 31.2 pg (27.0-33.0); Mean Corpuscular Volume 102.1 fL (80.0-98.0); Monocytes Absolute Auto 0.7 X10*3/uL (0.1-1.2); Monocytes Percent Auto 8.2 % (2-11); Neutrophils Absolute Auto 6.6 x10*3/uL (2.0-8.3); Neutrophils Percent Auto 73.2 % (45-73); Platelet Count 187 X10*3/uL (160-400); Red Cell Distribution Width 13.7 % (11.0-16.0)
== END 2022-05-05 13:57 | disposition home or self-care (01) ==
LOC: HO.LABR 13:56
PROVIDERS: PCP Internal Medicine; Visit Provider General Practice
DX: Z79.899 Other long term (current) drug therapy (principal)
CPT/HCPCS: 36415; 85025

== ENCOUNTER 2022-06-03 14:02 | Outpatient (REF) | payer MEDICARE, MEDICAID, SELFPAY ==
[2022-06-03 14:32] LABS: MANUAL DIFF FLAG NO
[2022-06-03 15:20] LABS: Basophils Percent Auto 0.5 % (0-2); Hematocrit 42.3 % (37.0-47.0); Imm Gran Abs Auto 0.03 X10*3/uL (0.00-0.03); Imm Gran Pct Auto 0.4 % (0.0-0.4); Lymphocytes Absolute Auto 1.4 X10*3/uL (1.2-4.9); Lymphocytes Percent Auto 18.1 % (20-40); Mean Corpuscular HGB Conc 30.7 g/dl (31.0-35.0); Mean Corpuscular Hemoglobin 31.2 pg (27.0-33.0); Mean Corpuscular Volume 101.4 fL (80.0-98.0); Mean Platelet Volume 11.3 fL (9.4-12.3); Monocytes Absolute Auto 0.5 X10*3/uL (0.1-1.2); Monocytes Percent Auto 6.6 % (2-11); Neutrophils Absolute Auto 5.8 x10*3/uL (2.0-8.3); Neutrophils Percent Auto 74.4 % (45-73); Platelet Count 183 X10*3/uL (160-400); Red Blood Count 4.17 X10*6/uL (4.20-5.50); Red Cell Distribution Width 13.4 % (11.0-16.0); White Blood Count 7.8 X10*3/uL (4.8-10.8)
[2022-06-03 15:56] LABS: Albumin Level 4.1 g/dL (3.5-5.0); Anion Gap 11 (12-20); Blood Urea Nitrogen 20 mg/dL (9-16); Calcium 8.9 mg/dL (8.4-10.2); Carbon Dioxide 26 mmol/L (22-29); Chloride 109 mmol/L (96-108); Estimated Glomerular Filt Rate 18; Magnesium 1.9 mg/dL (1.6-2.6); Phosphorus 2.9 mg/dL (2.7-4.5); Potassium 4.3 mmol/L (3.3-5.1); Sodium 142 mmol/L (135-145)
[2022-06-03 16:12] LABS: Vitamin D 25-OH Total 18.6 ng/mL (>30)
[2022-06-03 18:23] LABS: Appearance Urine Turbid; Color Urine Yellow; Glucose Urine UA Negative (Negative); Leukocyte Esterase Urine Moderate (2+) (Negative); Nitrite Urine Negative (Negative); Specific Gravity - Urine <= 1.005 (1.005-1.025); UMIC TRIGGER UA YES; Urine Blood Trace (Negative); Urine Ketones Negative (Negative); Urine Protein Negative (Neg-Trace)
[2022-06-03 18:34] LABS: Bacteria Urine 4+ (None Seen); Hyaline Casts Urine 0-2 /LPF (0-2); Squamous Epithelial Cell Urine >20 /HPF (0-2); WBC Urine 21-50 /HPF (0-5)
[2022-06-03 20:47] LABS: Microalbum/Creatinine Ratio Ur 94.5 ug/mg cr; Total Protein Urine Random < 7 mg/dL (<12)
[2022-06-05 13:19] LABS: Calcium (PTHI) 8.8 mg/dL (8.6-10.4); PTHI 178 pg/mL (16-77)
== END 2022-06-03 14:03 | disposition home or self-care (01) ==
LOC: HO.LAB 14:02
PROVIDERS: Absent Provider Internal Medicine Nephrology; PCP Internal Medicine; Visit Provider General Practice
DX: N18.4 Chronic kidney disease, stage 4 (severe) (principal); N25.0 Renal osteodystrophy; Z79.899 Other long term (current) drug therapy
CPT/HCPCS: 36415; 80051; 81001; 82040; 82043; 82306; 82310; 82565; 83735; 83970; 84100; 84156; 84520; 85025; 87086

== ENCOUNTER 2022-08-03 15:20 | Outpatient (REF) | payer MEDICARE, MEDICAID, SELFPAY ==
[2022-08-03 15:33] LABS: MANUAL DIFF FLAG NO
[2022-08-03 15:56] LABS: Basophils Percent Auto 0.4 % (0-2); Hematocrit 44.2 % (37.0-47.0); Hemoglobin 13.3 g/dl (12.0-16.0); Imm Gran Abs Auto 0.03 X10*3/uL (0.00-0.03); Imm Gran Pct Auto 0.4 % (0.0-0.4); Lymphocytes Absolute Auto 1.6 X10*3/uL (1.2-4.9); Lymphocytes Percent Auto 22.2 % (20-40); Mean Corpuscular HGB Conc 30.1 g/dl (31.0-35.0); Mean Corpuscular Hemoglobin 30.6 pg (27.0-33.0); Mean Corpuscular Volume 101.8 fL (80.0-98.0); Mean Platelet Volume 10.6 fL (9.4-12.3); Monocytes Absolute Auto 0.4 X10*3/uL (0.1-1.2); Monocytes Percent Auto 4.9 % (2-11); Neutrophils Absolute Auto 5.3 x10*3/uL (2.0-8.3); Neutrophils Percent Auto 72.1 % (45-73); Platelet Count 189 X10*3/uL (160-400); Red Blood Count 4.34 X10*6/uL (4.20-5.50); Red Cell Distribution Width 13.7 % (11.0-16.0); White Blood Count 7.3 X10*3/uL (4.8-10.8)
== END 2022-08-03 15:21 | disposition home or self-care (01) ==
LOC: HO.LAB 15:20
PROVIDERS: Visit Provider General Practice
DX: Z79.899 Other long term (current) drug therapy (principal)
CPT/HCPCS: 36415; 85025

== ENCOUNTER 2022-10-02 16:45 | Outpatient (REF) | payer MEDICARE, MEDICAID, SELFPAY ==
[2022-10-02 16:57] LABS: MANUAL DIFF FLAG NO
[2022-10-02 17:44] LABS: Basophils Absolute Auto 0.1 X10*3/uL (0.0-0.2); Basophils Percent Auto 0.6 % (0-2); Hematocrit 42.2 % (37.0-47.0); Hemoglobin 13.2 g/dl (12.0-16.0); Imm Gran Abs Auto 0.02 X10*3/uL (0.00-0.03); Imm Gran Pct Auto 0.2 % (0.0-0.4); Lymphocytes Absolute Auto 1.8 X10*3/uL (1.2-4.9); Lymphocytes Percent Auto 21.8 % (20-40); Mean Corpuscular HGB Conc 31.3 g/dl (31.0-35.0); Mean Corpuscular Hemoglobin 31.6 pg (27.0-33.0); Mean Platelet Volume 11.2 fL (9.4-12.3); Monocytes Absolute Auto 0.6 X10*3/uL (0.1-1.2); Monocytes Percent Auto 7.3 % (2-11); Neut%MD 70.1 %; Neutrophils Absolute Auto 5.8 x10*3/uL (2.0-8.3); Neutrophils Percent Auto 70.1 % (45-73); Platelet Count 197 X10*3/uL (160-400); Red Blood Count 4.18 X10*6/uL (4.20-5.50); Red Cell Distribution Width 13.6 % (11.0-16.0); WBCANC 8.2 X10*3/uL; White Blood Count 8.2 X10*3/uL (4.8-10.8)
== END 2022-10-02 16:46 | disposition home or self-care (01) ==
LOC: HO.LABR 16:45
PROVIDERS: PCP Internal Medicine; Visit Provider General Practice
DX: Z79.899 Other long term (current) drug therapy (principal)
CPT/HCPCS: 36415; 85025

== ENCOUNTER 2022-12-02 15:53 | Outpatient (REF) | payer MEDICARE, MEDICAID, SELFPAY ==
[2022-12-02 16:07] LABS: MANUAL DIFF FLAG NO
[2022-12-02 16:56] LABS: Basophils Absolute Auto 0.1 X10*3/uL (0.0-0.2); Basophils Percent Auto 0.7 % (0-2); Hematocrit 41.4 % (37.0-47.0); Hemoglobin 12.7 g/dl (12.0-16.0); Imm Gran Abs Auto 0.03 X10*3/uL (0.00-0.03); Imm Gran Pct Auto 0.4 % (0.0-0.4); Lymphocytes Absolute Auto 1.4 X10*3/uL (1.2-4.9); Lymphocytes Percent Auto 18.1 % (20-40); Mean Corpuscular HGB Conc 30.7 g/dl (31.0-35.0); Mean Corpuscular Hemoglobin 30.9 pg (27.0-33.0); Mean Corpuscular Volume 100.7 fL (80.0-98.0); Mean Platelet Volume 11.2 fL (9.4-12.3); Monocytes Absolute Auto 0.4 X10*3/uL (0.1-1.2); Monocytes Percent Auto 5.2 % (2-11); Neutrophils Absolute Auto 5.6 x10*3/uL (2.0-8.3); Neutrophils Percent Auto 75.6 % (45-73); Platelet Count 179 X10*3/uL (160-400); Red Blood Count 4.11 X10*6/uL (4.20-5.50); Red Cell Distribution Width 13.6 % (11.0-16.0); White Blood Count 7.4 X10*3/uL (4.8-10.8)
== END 2022-12-02 15:54 | disposition home or self-care (01) ==
LOC: HO.LABR 15:53
PROVIDERS: PCP Internal Medicine; Visit Provider General Practice
DX: Z79.899 Other long term (current) drug therapy (principal)
CPT/HCPCS: 36415; 85025

== ENCOUNTER 2022-12-08 15:27 | Outpatient (REF) | payer MEDICARE, MEDICAID, SELFPAY ==
[2022-12-08 15:49] LABS: MANUAL DIFF FLAG NO
[2022-12-08 17:00] LABS: Basophils Percent Auto 0.5 % (0-2); Hematocrit 42.8 % (37.0-47.0); Imm Gran Abs Auto 0.04 X10*3/uL (0.00-0.03); Imm Gran Pct Auto 0.5 % (0.0-0.4); Lymphocytes Absolute Auto 1.5 X10*3/uL (1.2-4.9); Mean Corpuscular HGB Conc 30.4 g/dl (31.0-35.0); Mean Corpuscular Hemoglobin 31.1 pg (27.0-33.0); Mean Corpuscular Volume 102.4 fL (80.0-98.0); Mean Platelet Volume 11.5 fL (9.4-12.3); Monocytes Absolute Auto 0.5 X10*3/uL (0.1-1.2); Monocytes Percent Auto 6.6 % (2-11); Neutrophils Absolute Auto 5.3 x10*3/uL (2.0-8.3); Neutrophils Percent Auto 72.4 % (45-73); Platelet Count 183 X10*3/uL (160-400); Red Blood Count 4.18 X10*6/uL (4.20-5.50); Red Cell Distribution Width 13.7 % (11.0-16.0); White Blood Count 7.3 X10*3/uL (4.8-10.8)
[2022-12-08 17:34] LABS: Albumin Level 4.2 g/dL (3.5-5.0); Anion Gap 13 (12-20); Blood Urea Nitrogen 23 mg/dL (9-16); Calcium 10.5 mg/dL (8.4-10.2); Carbon Dioxide 24 mmol/L (22-29); Chloride 115 mmol/L (96-108); Estimated Glomerular Filt Rate 16; Magnesium 2.2 mg/dL (1.6-2.6); Phosphorus 2.9 mg/dL (2.7-4.5); Potassium 4.2 mmol/L (3.3-5.1); Sodium 148 mmol/L (135-145)
[2022-12-09 16:29] LABS: Calcium (PTHI) 9.6 mg/dL (8.6-10.4); PTHI 110 pg/mL (16-77)
== END 2022-12-08 15:28 | disposition home or self-care (01) ==
LOC: HO.LAB 15:27
PROVIDERS: PCP Internal Medicine; Visit Provider Internal Medicine Nephrology
DX: N18.4 Chronic kidney disease, stage 4 (severe) (principal); N25.0 Renal osteodystrophy
CPT/HCPCS: 36415; 80051; 82040; 82306; 82310; 82565; 83735; 83970; 84100; 84520; 85025

== ENCOUNTER 2022-12-09 16:49 | Outpatient (REF) | payer MEDICARE, MEDICAID, SELFPAY ==
[2022-12-09 17:09] LABS: Appearance Urine Clear; Color Urine Yellow; Glucose Urine UA Negative (Negative); Leukocyte Esterase Urine Large (3+) (Negative); Nitrite Urine Positive (Negative); PH 5.5 (5.0-9.0); Specific Gravity - Urine 1.015 (1.005-1.025); UMIC TRIGGER UA YES; Urine Blood Negative (Negative); Urine Ketones Negative (Negative); Urine Protein Negative (Neg-Trace)
[2022-12-09 17:11] LABS: Bacteria Urine 4+ (None Seen); Hyaline Casts Urine 0-2 /LPF (0-2); RBC Urine 0-2 /HPF (0-2); WBC Urine >50 /HPF (0-5)
[2022-12-09 17:44] LABS: Creatinine Urine 82.62 mg/dL; Protein/Creatinine Ratio, Ur 0.11 (<0.2); Total Protein Urine Random 9 mg/dL (<12)
== END 2022-12-09 16:50 | disposition home or self-care (01) ==
LOC: HO.LNP 16:49
PROVIDERS: Visit Provider Internal Medicine Nephrology
DX: N18.4 Chronic kidney disease, stage 4 (severe) (principal); N25.0 Renal osteodystrophy; R82.90 Unspecified abnormal findings in urine
CPT/HCPCS: 81001; 84156; 87086; 87088; 87186

== ENCOUNTER 2022-12-30 15:20 | Outpatient (REF) | payer MEDICARE, MEDICAID, SELFPAY ==
[2022-12-30 15:39] LABS: MANUAL DIFF FLAG NO
[2022-12-30 16:04] LABS: Basophils Absolute Auto 0.1 X10*3/uL (0.0-0.2); Basophils Percent Auto 0.6 % (0-2); Hematocrit 40.6 % (37.0-47.0); Hemoglobin 12.7 g/dl (12.0-16.0); Imm Gran Abs Auto 0.05 X10*3/uL (0.00-0.03); Imm Gran Pct Auto 0.6 % (0.0-0.4); Lymphocytes Absolute Auto 1.3 X10*3/uL (1.2-4.9); Lymphocytes Percent Auto 16.3 % (20-40); Mean Corpuscular HGB Conc 31.3 g/dl (31.0-35.0); Mean Corpuscular Hemoglobin 31.4 pg (27.0-33.0); Mean Corpuscular Volume 100.5 fL (80.0-98.0); Monocytes Absolute Auto 0.6 X10*3/uL (0.1-1.2); Monocytes Percent Auto 7.2 % (2-11); Neutrophils Percent Auto 75.3 % (45-73); Platelet Count 178 X10*3/uL (160-400); Red Blood Count 4.04 X10*6/uL (4.20-5.50); Red Cell Distribution Width 13.7 % (11.0-16.0)
== END 2022-12-30 15:21 | disposition home or self-care (01) ==
LOC: HO.LABR 15:20
PROVIDERS: Visit Provider General Practice
DX: Z79.899 Other long term (current) drug therapy (principal)
CPT/HCPCS: 36415; 85025

== ENCOUNTER 2023-03-02 16:15 | Outpatient (REF) | payer MEDICARE, MEDICAID, SELFPAY ==
[2023-03-02 16:25] LABS: MANUAL DIFF FLAG NO
[2023-03-02 16:47] LABS: Basophils Percent Auto 0.6 % (0-2); Hematocrit 41.5 % (37.0-47.0); Hemoglobin 12.7 g/dl (12.0-16.0); Imm Gran Abs Auto 0.03 X10*3/uL (0.00-0.03); Imm Gran Pct Auto 0.5 % (0.0-0.4); Lymphocytes Absolute Auto 1.5 X10*3/uL (1.2-4.9); Lymphocytes Percent Auto 22.5 % (20-40); Mean Corpuscular HGB Conc 30.6 g/dl (31.0-35.0); Mean Corpuscular Volume 104.5 fL (80.0-98.0); Mean Platelet Volume 11.4 fL (9.4-12.3); Monocytes Absolute Auto 0.4 X10*3/uL (0.1-1.2); Monocytes Percent Auto 5.5 % (2-11); Neut%MD 70.9 %; Neutrophils Absolute Auto 4.6 x10*3/uL (2.0-8.3); Neutrophils Percent Auto 70.9 % (45-73); Platelet Count 157 X10*3/uL (160-400); Red Blood Count 3.97 X10*6/uL (4.20-5.50); Red Cell Distribution Width 13.7 % (11.0-16.0); WBCANC 6.5 X10*3/uL; White Blood Count 6.5 X10*3/uL (4.8-10.8)
== END 2023-03-02 16:16 | disposition home or self-care (01) ==
LOC: HO.LABR 16:15
PROVIDERS: PCP Internal Medicine; Visit Provider General Practice
DX: Z79.899 Other long term (current) drug therapy (principal)
CPT/HCPCS: 36415; 85025

== ENCOUNTER 2023-04-09 17:43 | Emergency (ER) | payer MEDICARE, MEDICAID, SELFPAY ==
--- NOTE | ~2023-04-09 | XR_ITS ---
EXAMINATION: XR CHEST CLINICAL INFORMATION: Covid plus COMPARISON: None available. TECHNIQUE: 2 views of the chest were obtained. FINDINGS: The lungs are well-expanded with patchy opacity in the lingula and right lung base likely atelectasis and/or infiltrate. Rest of the lungs are clear. Heart size and pulmonary vascularity is normal. No gross bony abnormality seen XR/XR chest 2V IMPRESSION: Patchy opacities in the lingula and right lower lobe suspicious for infiltrate.
[2023-04-09 17:54] VITALS: BP 122/76; PULSE 97; O2SAT 96
[2023-04-09 19:05] VITALS: BP 137/88; PULSE 96; RESP 18; TEMP 37.1; O2SAT 95; BMI 35.6
--- NOTE | 2023-04-09 19:07 | ED_ITS ---
HPI - General Adult General Chief complaint: Upper Respiratory Symptoms Stated complaint: neck/throat pain, nausea, hx of chronic kidney gila Time Seen by Provider: 04/10/23 00:54 History of Present Illness HPI narrative: The patient is a 62-year-old woman with a history of chronic kidney disease who has been feeling unwell for about 5 days with cough and chills. Both she and her and daughter with whom she lives have all tested positive for COVID. Patient has been coughing a lot but has not had a fever. She has developed pain in the anterior neck on both sides and also pain in the upper back. These pains are worse when she moves or when she coughs. She has some mild shortness of breath when she walks around. She does not have any dysuria or urgency frequency. She came to the emergency room mostly because the pains in her neck and her back which are worse when she coughs or moves around were very uncomfortable and did not respond to acetaminophen. Related Data Previous Rx's Medication Instructions Recorded albuterol sulfate 90 mcg/actuation 2 puff inhalation Q4-6H PRN 04/10/23 aerosol inhaler shortness of breath or wheezing #8.5 grams cefuroxime axetil 250 mg tablet 250 mg PO BID #14 tabs 04/10/23 oxycodone 5 mg tablet 5 mg PO Q8H PRN pain #10 tabs 04/10/23 Allergies Allergy/AdvReac Type Severity Reaction Status Date / Time guaifenesin [From ROBITUSSIN] AdvReac Unknown NAUSEA Verified 04/09/23 19:10 Review of Systems 2 Review of Systems: Yes all other systems are reviewed and are negative [facility] Social History Social History Smoked in Last 30 Days: Yes Advance Directives: No Advance Directives Information Provided: Yes Physical Exam ED Vital Signs: Vital Signs - 24 hr 04/09/23 19:05 04/10/23 01:11 04/10/23 01:11 Temperature 98.7 F 98.6 F Pulse Rate 96 98 Respiratory Rate 18 21 H Blood Pressure 137/88 149/85 H Pulse Oximetry 95 97 97 Oxygen Delivery Method Room Air Room Air Room Air 04/10/23 01:30 Temperature Pulse Rate 98 Respiratory Rate 20 Blood Pressure Pulse Oximetry Oxygen Delivery Method BMI result Body Mass Index 35.6 Const Other: The patient is very chronically ill-appearing 62-year-old. She is awake and alert. She does not appear in respiratory distress or obvious distress otherwise. She is pleasant and cooperative. HENMT Other: Face is symmetrical. Mucous membranes moist. Eyes Other: Pupils are round equal, conjunctivae are clear Neck Other: No JVD Resp Other: The patient has coarse and slightly rhonchorous air entry bilaterally. No increased work of breathing. Cardio Other: The patient has a regular rate and rhythm with no murmur. GI Other: Abdomen is soft and nontender Skin Other: Skin is pale and dry. Neuro Other: The patient is awake, alert, oriented, appropriate. Face is symmetrical. Speech is clear. She moves her extremities symmetrically. She is a deconditioned 62-year-old but she has no focal findings. Extrem Other: Patient has tenderness to the musculature of the neck of the upper back. The extremities show no peripheral edema. Course Course Course Narrative: This is a rapid medical exam: Additional HPI, ROS, PE not included below will be deferred to primary provider. Patient is a 62-year-old female with history of CKD presenting to the ED with complaint of neck pain, nausea, vomiting and intermittent diarrhea since 04/05. Tested positive for Covid and family all tested positive as well. Has not taken any Tylenol or ibuprofen for sxs. Plan: labs, UA Medications Administered Discontinued Medications Generic Name Dose Route Start Last Admin Trade Name Freq PRN Reason Stop Dose Admin Albuterol/Ipratropium 3 ml 04/10/23 01:10 04/10/23 01:29 Albuterol/Iprat 2.5/0.5mg 3 Ml Ampul.Neb INHALE 04/10/23 01:11 3 ml ONCE ONE Administration Morphine Sulfate 15 mg 04/10/23 01:11 04/10/23 01:19 Morphine Sulfate Immed Release 15 Mg Tablet PO 04/10/23 01:12 15 mg ONCE ONE Administration Medical Decision Making Medical Decision Making [facility] Narrative: The patient is a 62-year-old with significant chronic renal disease who has been sick with COVID for about 5 days. She comes to the emergency room primarily because of pain in her neck and her upper back which I believe is muscular pain probably related to coughing. Her COVID test today is positive. Her chest x- ray was read as equivocal E showing infiltrates. Her urinalysis shows post leukocyte esterase and more than 50 white cells. Since the patient's chief complaint is pain and since her pain seems musculoskeletal I think it would be reasonable to prescribe her oxycodone to use in addition to acetaminophen. Although she is COVID positive I am not certain she would get much benefit from Paxlovid this far into her illness. The her for renal function is a relative contraindication to Paxlovid. I will prescribe cefuroxime 250 mg b.i.d. on account of her equivocal chest x- ray and her equivocal urinalysis. The patient was given and a DuoNeb treatment for her course in somewhat rhonchorous breath sounds. She should use albuterol at home 4 times a day. Lab Data 04/09/23 19:42 04/09/23 19:42 Labs: Lab Results 04/09/23 04/10/23 Range/Units 19:42 01:14 WBC 5.0 (4.8-10.8) X10*3/uL RBC 3.99 L (4.20-5.50) X10*6/uL Hgb 12.5 (12.0-16.0) g/dl Hct 40.2 (37.0-47.0) % MCV 100.8 H (80.0-98.0) fL MCH 31.3 (27.0-33.0) pg MCHC 31.1 (31.0-35.0) g/dl RDW 14.0 (11.0-16.0) % Plt Count 159 L (160-400) X10*3/uL MPV 10.2 (9.4-12.3) fL Immature Gran % (Auto) 1.4 H (0.0-0.4) % Neut % (Auto) 65.1 (45-73) % Lymph % (Auto) 22.5 (20-40) % [place] % (Auto) 10.6 (2-11) % Eos % (Auto) 0.0 (0-4) % Baso % (Auto) 0.4 (0-2) % Lymph # (Auto) 1.1 L (1.2-4.9) X10*3/uL [place] # (Auto) 0.5 (0.1-1.2) X10*3/uL Eos # (Auto) 0.0 (0.0-0.4) X10*3/uL Baso # (Auto) 0.0 (0.0-0.2) X10*3/uL Abs Immat Gran (auto) 0.07 H (0.00-0.03) X10*3/uL Absolute Neuts (auto) 3.3 (2.0-8.3) x10*3/uL Absolute Nucleated RBC 0.000 (0.0-0.012) X10*3/uL Nucleated RBC % (auto) 0.0 (0.0-0.2) /100WBC Sodium 144 (135-145) mmol/L Potassium 3.8 (3.3-5.1) mmol/L Chloride 113 H (96-108) mmol/L Carbon Dioxide 21 L (22-29) mmol/L Anion Gap 14 (12-20) BUN 21 H (9-16) mg/dL Creatinine 3.06 H (0.5-1.4) mg/dL Estim Creat Clear Calc 20.9 Estimated GFR 16 Random Glucose 93 (60-115) mg/dL Calcium 9.0 D (8.4-10.2) mg/dL Total Bilirubin 0.3 (0.0-1.0) mg/dL AST 17 (5-31) U/L ALT 15 (0-31) U/L Alkaline Phosphatase 78 (39-117) U/L Total Protein 7.0 (6.5-8.0) g/dL Albumin 4.0 (3.5-5.0) g/dL Urine Color Yellow Urine Appearance Cloudy Urine pH 6.0 (5.0-9.0) Ur Specific [place] <= 1.005 (1.005-1.025) Urine Protein Negative (Neg-Trace) mg/dL Urine Glucose (UA) Negative (Negative) mg/dL Urine Ketones Negative (Negative) mg/dL Urine Blood Moderate (2+) H (Negative) Urine Nitrite Negative (Negative) Ur Leukocyte Esterase Large (3+) H (Negative) Urine RBC 3-5 H (0-2) /HPF Urine WBC >50 H (0-5) /HPF Ur Squamous Epith Cells >20 (0-2) /HPF Urine Bacteria 4+ (None Seen) Hyaline Casts 0-2 (0-2) /LPF Influenza Type A (PCR) NEGATIVE (Negative) Influenza Type B (PCR) NEGATIVE (Negative) RSV RNA Qual (PCR) NEGATIVE (Negative) SARS-CoV-2 RNA (RT-PCR) POSITIVE A (Negative) Discharge Plan Discharge Clinical Impression: COVID-19, Acute neck pain, Urinary tract infection Patient Disposition: Home, Self-Care Instructions: COVID-19 (Coronavirus Disease 2019) (ED) Additional Instructions: You have tested positive for COVID here as well. I think the pain the you are experiencing in your neck and in your back is most likely muscle pain, possibly from coughing a lot. Please take 2 extra-strength acetaminophen (Tylenol) up to 3 times a day as needed for pain. In addition I have sent a prescription for a stronger pain medication oxycodone a you may use every 8 hours as needed for pain. You may cut the tablets in half to start with to see how well you tolerate them. Your urine testing is also suspicious for a possible urinary tract infection. I have sent an antibiotic prescription to your pharmacy as well. Please take this 2 times a day as prescribed. Please use albuterol either by nebulizer machine or your inhaler at least 4 times a day for the next few days. Please follow-up with your regular doctors. Return to the emergency room if worse. Prescriptions: New cefuroxime axetil 250 mg tablet 250 mg PO BID Qty: 14 0RF oxycodone 5 mg tablet 5 mg PO Q8H PRN (Reason: pain) Qty: 10 0RF Rx Instructions: Partial Fill upon patient request. albuterol sulfate 90 mcg/actuation HFA aerosol inhaler 2 puff inhalation Q4-6H PRN (Reason: shortness of breath or wheezing) Qty: 8.5 0RF Referrals: Erasmo Morrison MD [Physician] - (covid) Dayo Potter MD [Physician] -
--- NOTE | 2023-04-09 19:45 | MHC.EDTECH ---
Patient brought into triage area, labs and urine obtained and sen to lab, patient brought back to waiting area.
[2023-04-09 19:50] LABS: MANUAL DIFF FLAG NO
[2023-04-09 19:51] LABS: Basophils Percent Auto 0.4 % (0-2); Hematocrit 40.2 % (37.0-47.0); Hemoglobin 12.5 g/dl (12.0-16.0); Imm Gran Abs Auto 0.07 X10*3/uL (0.00-0.03); Imm Gran Pct Auto 1.4 % (0.0-0.4); Lymphocytes Absolute Auto 1.1 X10*3/uL (1.2-4.9); Lymphocytes Percent Auto 22.5 % (20-40); Mean Corpuscular HGB Conc 31.1 g/dl (31.0-35.0); Mean Corpuscular Hemoglobin 31.3 pg (27.0-33.0); Mean Corpuscular Volume 100.8 fL (80.0-98.0); Mean Platelet Volume 10.2 fL (9.4-12.3); Monocytes Absolute Auto 0.5 X10*3/uL (0.1-1.2); Monocytes Percent Auto 10.6 % (2-11); Neutrophils Absolute Auto 3.3 x10*3/uL (2.0-8.3); Neutrophils Percent Auto 65.1 % (45-73); Platelet Count 159 X10*3/uL (160-400); Red Blood Count 3.99 X10*6/uL (4.20-5.50)
[2023-04-09 19:53] LABS: Appearance Urine Cloudy; Color Urine Yellow; Glucose Urine UA Negative (Negative); Leukocyte Esterase Urine Large (3+) (Negative); Nitrite Urine Negative (Negative); Specific Gravity - Urine <= 1.005 (1.005-1.025); UMIC TRIGGER UACC YES; Urine Blood Moderate (2+) (Negative); Urine Ketones Negative (Negative); Urine Protein Negative (Neg-Trace)
[2023-04-09 20:03] LABS: Bacteria Urine 4+ (None Seen); Hyaline Casts Urine 0-2 /LPF (0-2); Squamous Epithelial Cell Urine >20 /HPF (0-2); UACC Culture Trigger YES; WBC Urine >50 /HPF (0-5)
[2023-04-09 20:06] LABS: Alanine Aminotransferase 15 U/L (0-31); Alkaline Phosphatase 78 U/L (39-117); Anion Gap 14 (12-20); Aspartate Amino Transferase 17 U/L (5-31); Bilirubin Total 0.3 mg/dL (0.0-1.0); Blood Urea Nitrogen 21 mg/dL (9-16); Carbon Dioxide 21 mmol/L (22-29); Chloride 113 mmol/L (96-108); Creatinine Clr Calc Pharmacy 20.9; Estimated Glomerular Filt Rate 16; Glucose Random 93 mg/dL (60-115); Potassium 3.8 mmol/L (3.3-5.1); Sodium 144 mmol/L (135-145)
[2023-04-10 01:11] VITALS: BP 149/85; PULSE 98; RESP 21; TEMP 37; O2SAT 97
[2023-04-10] MEDS: Morphine Sulfate Immed Release 15 MG TABLET PO (01:19)
[2023-04-10] MEDS: Albuterol/Iprat 2.5/0.5MG 3 ML AMPUL.NEB INHALE (01:29)
[2023-04-10 01:30] VITALS: PULSE 98; RESP 20; O2SAT 97
[2023-04-10 02:02] LABS: Influenza A PCR NEGATIVE (Negative); Influenza B PCR NEGATIVE (Negative); Resp Syncy Virus RNA Qual PCR NEGATIVE (Negative); SARS COV2 PCR INHOUSE POSITIVE (Negative)
[2023-04-10] MEDS: cefuroxime axetiL 500 MG TABLET PO (02:46)
== END 2023-04-10 03:01 | disposition home or self-care (01) ==
PROVIDERS: Registered Nurse Emergency; Emergency Provider Emergency Medicine
DX: U07.1 COVID-19 (principal); N39.0 Urinary tract infection, site not specified; M54.2 Cervicalgia; R11.2 Nausea with vomiting, unspecified
CPT/HCPCS: 0241U; 36415; 71046; 80053; 81001; 85025; 87086; 94640; 99285

== ENCOUNTER 2023-04-10 19:08 | Inpatient (IN) | payer MEDICARE, MEDICAID, SELFPAY ==
--- NOTE | ~2023-04-10 | XR_ITS ---
EXAMINATION: XR SOFT TISSUE NECK CLINICAL INDICATION: Neck pain. COMPARISON: None available. TECHNIQUE: 2 views of the soft tissue neck were obtained. FINDINGS: Nonspecific reversal of the cervical lordosis with apex at C4-C5. No evidence of acute compression deformity or traumatic subluxation. Moderate intervertebral disc height loss in the lower lumbar spine. Mild to moderate multilevel uncovertebral/facet hypertrophy. Prevertebral soft tissue thickening anterior to C5-C7 might be artifactual related with patient's positioning as the patient is partially flexing the neck. Included portions of the lung apices are clear. XR/XR soft tissue neck IMPRESSION: 1. Nonspecific reversal of the cervical lordosis that could be related with patient's positioning or muscular spasm. 2. No acute compression deformity or traumatic subluxation. 3. Moderate multilevel cervical spondylosis more prominent in the lower cervical spine. 4. Prevertebral soft tissue thickening anterior to C5-C7 might be artifactual related with patient's positioning as the patient is partially flexing the neck; a repeat radiograph or further evaluation with a CT of the neck could be obtained as clinically warranted.
--- NOTE | ~2023-04-10 | CT_ITS ---
EXAMINATION: CT SOFT TISSUE NECK WITHOUT CONTRAST CLINICAL INFORMATION: Abnormal x-ray of the soft tissues of the neck. COMPARISON: None available. TECHNIQUE: Helical imaging was performed in the axial plane with generation of coronal and sagittal reformatted images. This CT examination was performed using dose optimization techniques as appropriate, variously including the following: *Automated exposure control *Adjustment of mA and/or kV according to patient size (this includes techniques or standardized protocols for targeted exams where dose is matched to indication/reason for exam; i.e. extremities or head) *Use of iterative reconstruction technique DLP: 128 mGy-cm FINDINGS: The nasopharynx, oropharynx and hypopharynx are unremarkable. The airway is patent. The prevertebral soft tissues are unremarkable. There are no significant enlarged lymph nodes. There is cervical disc degenerative change with straightening of the cervical spine curvature. There are ethmoid sinus opacities. There is mucosal thickening of the frontal and maxillary sinuses. CT/CT soft tissue neck wo IV con IMPRESSION: 1. No evidence of soft tissue mass. 2. Mild paranasal sinus disease.
--- NOTE | ~2023-04-10 | CT_ITS ---
EXAMINATION: CT CHEST WITHOUT CONTRAST CLINICAL INFORMATION: Covid positive. Hypoxia. Evaluate for pneumonia. Cough. COMPARISON: Most recent chest radiograph dated 04/10/2023. TECHNIQUE: Multidetector volumetric CT imaging of the chest was done. Axial MIP volume rendering provided. Sagittal and coronal reformatted images were obtained. This CT examination was performed using dose optimization techniques as appropriate, variously including the following: *Automated exposure control *Adjustment of mA and/or kV according to patient size (this includes techniques or standardized protocols for targeted exams where dose is matched to indication/reason for exam; i.e. 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 LUNGS: Mild, scattered patchy opacities within the dependent right lung base with a few air bronchograms which could represent atelectasis versus early infiltrates. No diffuse ground-glass airspace opacities. No large pulmonary nodule or mass. The central airways are patent. MEDIASTINUM: No cardiomegaly. No pericardial effusion. No thoracic aortic dilatation. No mediastinal or hilar lymphadenopathy. Unremarkable thyroid. No coronary artery calcifications. CORONARY ARTERY CALCIFICATION: None visualized on this study. PLEURA: There is no pleural effusion. No pleural mass or thickening. AXILLA: No lymphadenopathy. UPPER ABDOMEN: Unremarkable. OSSEOUS STRUCTURES: Unremarkable. CT/CT chest wo IV con IMPRESSION: 1. Mild, scattered patchy opacities within the dependent right lung base with a few air bronchograms which could represent atelectasis versus early infiltrates. 2. No diffuse ground-glass airspace opacities. No large pulmonary nodule or mass. 3. No lymphadenopathy. Fleischner guidelines were followed.
--- NOTE | ~2023-04-10 | XR_ITS ---
EXAMINATION: XR CHEST CLINICAL INFORMATION: Shortness of breath. COMPARISON: 04/09/2023. TECHNIQUE: Frontal view of the chest was obtained. FINDINGS: The patient is rotated. The cardiomediastinal silhouette is stable. There is no focal consolidation or pleural effusion. The bony structures and soft tissues are unremarkable. XR/XR chest 1V IMPRESSION: No acute cardiopulmonary disease.
[2023-04-10 19:23] VITALS: BP 126/80; PULSE 104; PULSE 110; RESP 15; TEMP 36.6; O2SAT 92; O2SAT 95; BMI 36.7
[2023-04-10 21:42] VITALS: BP 124/73; PULSE 98; RESP 14; TEMP 36.9; O2SAT 100
--- NOTE | 2023-04-10 21:43 | ECG_ITS ---
Test Reason : NECK Blood Pressure : / mmHG Vent. Rate : 098 BPM Atrial Rate : 098 BPM P-R Int : 180 ms QRS Dur : 080 ms QT Int : 366 ms P-R-T Axes : 035 -30 026 degrees QTc Int : 467 ms Normal sinus rhythm Left axis deviation Otherwise normal ECG When compared with ECG of 26-JUN-2020 12:19, No significant change was found Referred By: Robert Espinoza Electronically Signed By:SAMUEL NELSON
--- NOTE | 2023-04-10 21:47 | ED_ITS ---
HPI - General Adult General Chief complaint: Dyspnea Stated complaint: sob Time Seen by Provider: 04/10/23 21:34 Source: patient and EMS Mode of arrival: EMS Limitations: no limitations History of Present Illness HPI narrative: 62-year-old female with history of chronic kidney disease who was diagnosed with COVID infection and pneumonia yesterday in our ED, patient came in for evaluation of neck pain that is not improving with oxycodone was prescribed yesterday to the patient. Related Data Previous Rx's Medication Instructions Recorded albuterol sulfate 90 mcg/actuation 2 puff inhalation Q4-6H PRN 04/10/23 aerosol inhaler shortness of breath or wheezing #8.5 grams cefuroxime axetil 250 mg tablet 250 mg PO BID #14 tabs 04/10/23 oxycodone 5 mg tablet 5 mg PO Q8H PRN pain #10 tabs 04/10/23 cyclobenzaprine 10 mg tablet 10 mg PO BEDTIME PRN muscle spasm 04/11/23 #10 tabs Allergies Allergy/AdvReac Type Severity Reaction Status Date / Time guaifenesin [From ROBITUSSIN] AdvReac Unknown NAUSEA Verified 04/10/23 19:22 Review of Systems 2 Review of Systems: All other systems are reviewed and are negative Constitutional: Reports as per HPI and Reports no additional constitutional complaints Eyes: Reports as per HPI and Reports no additional eye complaints Reports system reviewed and no additional complaints, except as documented Cardiovascular: Reports as per HPI and Reports no additional cardiovascular complaints Respiratory: Reports as per HPI and Reports no additional respiratory complaints Gastrointestinal: Reports as per HPI and Reports no additional gastrointestinal complaints Genitourinary: Reports no additional female genitourinary complaints Musculoskeletal: Reports no additional musculoskeletal complaints Skin/Breast: Reports system reviewed and no additional complaints, except as docu Psychiatric: Reports no additional psychiatric complaints Endocrine: Reports no additional endocrine complaints Hematologic/Lymphatic: Reports no additional hematologic/lymphatic complaints Allergic/Immunologic: Reports no additional allergic/immunologic complaints Reports system reviewed and no additional complaints, except as documented and Reports Abnormal speech present [facility] Social History Social History Alcohol intake: never Smoked in Last 30 Days: Yes Use of substances other than those prescribed or required for medical reasons: No Advance Directives: No Advance Directives Information Provided: No Patient : No Physical Exam ED Vital Signs: Vital Signs - 24 hr 04/10/23 19:23 04/10/23 21:42 04/11/23 01:18 Temperature 97.9 F 98.5 F 99.1 F Pulse Rate 104 H 98 98 Respiratory Rate 15 14 14 Blood Pressure 124/73 121/71 Pulse Oximetry 92 100 100 Oxygen Delivery Method Room Air Nasal Cannula Nasal Cannula Oxygen Flow Rate 2 3 BMI result Body Mass Index 36.7 Vital signs have been reviewed and appear to be correct. Blood pressure elevated. Heart rate normal. Respiratory rate normal. Temperature normal. Oxygen saturation normal. Appearance: Alert. Oriented X3. No acute distress. Head: Normal external exam. Normocephalic. Atraumatic. No [place] signs noted. No raccoon eyes noted Eyes: PERRLA. EOMI. Conjunctiva and sclera normal. Eyelids normal. ENT: TM's Normal. Pharynx normal. Uvula midline. Moist mucous membranes. No trismus noted. No drooling noted. No muffled voice noted. Neck: Normal inspection. Neck supple. FROM. No adenopathy. Thyroid Normal. No meningeal signs. No neck mass noted. CVS: Normal heart rate and rhythm. Heart sound normal. No murmurs noted. Pulses normal throughout. Respiratory: No respiratory distress. Painless inspiration. Breath sounds normal. No wheezes/rales/rhonchi noted. Chest nontender. No accessory muscle usage noted or decreased air movement noted. Abdomen: Soft and nontender. Bowel sounds normal in all 4 quadrants. No distention noted. No organomegaly noted. No visible injury noted. Back: No CVA tenderness. Full range of motion noted. Skin: Skin warm and dry. Normal skin color. Normal skin turgor. No rashes/lesions/lacerations noted. Extremities: No lower extremity edema. Extremities exhibit normal range of motion. Extremities nontender. Neuro: Oriented X 3. Cranial nerve exam: II-XII are grossly intact No motor deficit. No sensory deficit. Reflexes normal. Course Reevaluation(s) Reevaluation #1: Soft tissue neck pain, patient is positive for COVID 19 infection. Patient was instructed to take NSAIDs if needed for pain, CT of the soft tissue neck still pending sign out to . Time: 01:38 Medications Administered Discontinued Medications Generic Name Dose Route Start Last Admin Trade Name Dean PRN Reason Stop Dose Admin Oxycodone HCl 5 mg 04/11/23 00:41 04/11/23 01:20 Oxycodone Hcl Immed Release 5 Mg Tablet PO 04/11/23 00:42 5 mg ONCE ONE Administration Medical Decision Making Differential Diagnosis Differential Diagnoses: The differential diagnosis associated with the presentation includes (Myofascial pain, soft tissue infection or abscess, electrolyte abnormality, severe anemia.) Admission/Observation Consideration of admission/observation: Escalation of care including admission/observation considered Lab Data [facility] Lab Attestation statement: I reviewed the patient's lab results. 04/10/23 22:13 04/10/23 22:13 Labs: Lab Results 04/10/23 04/10/23 04/10/23 Range/Units 22:13 22:43 23:40 WBC 4.6 L (4.8-10.8) X10*3/uL RBC 4.17 L (4.20-5.50) X10*6/uL Hgb 13.0 (12.0-16.0) g/dl Hct 42.7 (37.0-47.0) % MCV 102.4 H (80.0-98.0) fL MCH 31.2 (27.0-33.0) pg MCHC 30.4 L (31.0-35.0) g/dl RDW 14.5 (11.0-16.0) % Plt Count 135 L (160-400) X10*3/uL MPV 10.5 (9.4-12.3) fL Immature Gran % (Auto) 1.7 H (0.0-0.4) % Neut % (Auto) 72.9 (45-73) % Lymph % (Auto) 16.4 L (20-40) % [place] % (Auto) 8.6 (2-11) % Eos % (Auto) 0.0 (0-4) % Baso % (Auto) 0.4 (0-2) % Lymph # (Auto) 0.8 L (1.2-4.9) X10*3/uL [place] # (Auto) 0.4 (0.1-1.2) X10*3/uL Eos # (Auto) 0.0 (0.0-0.4) X10*3/uL Baso # (Auto) 0.0 (0.0-0.2) X10*3/uL Abs Immat Gran (auto) 0.08 H (0.00-0.03) X10*3/uL Absolute Neuts (auto) 3.4 (2.0-8.3) x10*3/uL Absolute Nucleated RBC 0.000 (0.0-0.012) X10*3/uL Nucleated RBC % (auto) 0.0 (0.0-0.2) /100WBC Sodium 149 H (135-145) mmol/L Potassium 4.4 (3.3-5.1) mmol/L Chloride 121 H (96-108) mmol/L Carbon Dioxide 18 L (22-29) mmol/L Anion Gap 14 (12-20) BUN 20 H (9-16) mg/dL Creatinine 3.00 H (0.5-1.4) mg/dL Estim Creat Clear Calc 21.7 Estimated GFR 16 Random Glucose 99 (60-115) mg/dL Lactic Acid 0.8 (0.5-2.0) mmol/L Calcium 9.4 (8.4-10.2) mg/dL Total Bilirubin 0.2 (0.0-1.0) mg/dL Direct Bilirubin < 0.2 (0.0-0.5) mg/dL AST 19 (5-31) U/L ALT 17 (0-31) U/L Alkaline Phosphatase 76 (39-117) U/L Troponin I High Sens 4.6 (<3.5-17.0) ng/L B-Natriuretic Peptide < 10 (<100) pg/mL Total Protein 7.0 (6.5-8.0) g/dL Albumin 3.9 (3.5-5.0) g/dL Lipase 9 (8-78) U/L Urine Color Yellow Urine Appearance Clear Urine pH 6.0 (5.0-9.0) Ur Specific [place] <= 1.005 (1.005-1.025) Urine Protein Trace (Neg-Trace) mg/dL Urine Glucose (UA) Negative (Negative) mg/dL Urine Ketones Negative (Negative) mg/dL Urine Blood Small (1+) H (Negative) Urine Nitrite Negative (Negative) Ur Leukocyte Esterase Moderate (2+) H (Negative) Urine RBC 3-5 H (0-2) /HPF Urine WBC 21-50 H (0-5) /HPF Ur Squamous Epith Cells 3-5 (0-2) /HPF Urine Bacteria None Seen (None Seen) Hyaline Casts 0-2 (0-2) /LPF S. pyogenes GrpA MEÑO Cancelled Independent Interpretation I performed an independent interpretation of an: CT Scan (Soft tissues CT: No acute soft tissue pathology.) Radiology Impression Discussion of test interpretation with radiology: I have reviewed the radiologist's reading. Discharge Plan Discharge Clinical Impression: COVID-19, Neck pain, Acute cervical myofascial strain Patient Disposition: Home, Self-Care Instructions: COVID-19 (Coronavirus Disease 2019) (ED) Prescriptions: New cyclobenzaprine 10 mg tablet 10 mg PO BEDTIME PRN (Reason: muscle spasm) Qty: 10 0RF No Action cefuroxime axetil 250 mg tablet 250 mg PO BID Qty: 14 0RF oxycodone 5 mg tablet 5 mg PO Q8H PRN (Reason: pain) Qty: 10 0RF Rx Instructions: Partial Fill upon patient request. albuterol sulfate 90 mcg/actuation HFA aerosol inhaler 2 puff inhalation Q4-6H PRN (Reason: shortness of breath or wheezing) Qty: 8.5 0RF Referrals: Erasmo Morrison MD [Primary Care Provider] -
[2023-04-10 22:17] LABS: MANUAL DIFF FLAG NO
[2023-04-10 22:19] LABS: Basophils Percent Auto 0.4 % (0-2); Hematocrit 42.7 % (37.0-47.0); Imm Gran Abs Auto 0.08 X10*3/uL (0.00-0.03); Imm Gran Pct Auto 1.7 % (0.0-0.4); Lymphocytes Absolute Auto 0.8 X10*3/uL (1.2-4.9); Lymphocytes Percent Auto 16.4 % (20-40); Mean Corpuscular HGB Conc 30.4 g/dl (31.0-35.0); Mean Corpuscular Hemoglobin 31.2 pg (27.0-33.0); Mean Corpuscular Volume 102.4 fL (80.0-98.0); Mean Platelet Volume 10.5 fL (9.4-12.3); Monocytes Absolute Auto 0.4 X10*3/uL (0.1-1.2); Monocytes Percent Auto 8.6 % (2-11); Neutrophils Absolute Auto 3.4 x10*3/uL (2.0-8.3); Neutrophils Percent Auto 72.9 % (45-73); Platelet Count 135 X10*3/uL (160-400); Red Blood Count 4.17 X10*6/uL (4.20-5.50); Red Cell Distribution Width 14.5 % (11.0-16.0); White Blood Count 4.6 X10*3/uL (4.8-10.8)
[2023-04-10 22:34] LABS: Lactic Acid 0.8 mmol/L (0.5-2.0)
[2023-04-10 22:41] LABS: Alanine Aminotransferase 17 U/L (0-31); Albumin Level 3.9 g/dL (3.5-5.0); Alkaline Phosphatase 76 U/L (39-117); Anion Gap 14 (12-20); Aspartate Amino Transferase 19 U/L (5-31); Bilirubin Direct < 0.2 mg/dL (0.0-0.5); Bilirubin Total 0.2 mg/dL (0.0-1.0); Blood Urea Nitrogen 20 mg/dL (9-16); Calcium 9.4 mg/dL (8.4-10.2); Carbon Dioxide 18 mmol/L (22-29); Chloride 121 mmol/L (96-108); Creatinine Clr Calc Pharmacy 21.7; Estimated Glomerular Filt Rate 16; Glucose Random 99 mg/dL (60-115); Lipase 9 U/L (8-78); Potassium 4.4 mmol/L (3.3-5.1); Sodium 149 mmol/L (135-145)
[2023-04-10 22:44] LABS: B Type Natriuretic Peptide < 10 pg/mL (<100)
[2023-04-10 22:47] LABS: Troponin-I High Sensitivity 4.6 ng/L (<3.5-17.0)
[2023-04-10 23:50] LABS: Appearance Urine Clear; Color Urine Yellow; Glucose Urine UA Negative (Negative); Leukocyte Esterase Urine Moderate (2+) (Negative); Nitrite Urine Negative (Negative); Specific Gravity - Urine <= 1.005 (1.005-1.025); UMIC TRIGGER UACC YES; Urine Blood Small (1+) (Negative); Urine Ketones Negative (Negative); Urine Protein Trace mg/dL (Neg-Trace)
[2023-04-11] VITALS (9 sets, daily range): BP systolic 120–139; BP diastolic 64–89; PULSE 78–114; RESP 14–24; TEMP 36.6–37.3; O2SAT 91–100
[2023-04-11 00:15] LABS: Bacteria Urine None Seen (None Seen); Hyaline Casts Urine 0-2 /LPF (0-2); UACC Culture Trigger YES; WBC Urine 21-50 /HPF (0-5)
[2023-04-11] MEDS: oxyCODONE HCl Immed Release 5 MG TABLET PO (01:20)
[2023-04-11] MEDS: Cyclobenzaprine HCl 10 MG TABLET PO (04:34)
--- NOTE | 2023-04-11 04:58 | PC.NURSE ---
Pt titrated off o2 via nasal cannula satting 92-94%. Pt request to get up to commode. This RN assisted and pt o2 saturation dropped to 80%. pt recovered satting 91% while sitting. notified. Will covid admit opt and order steroids and CTA of chest. PT placed back on 2L nasal cannula satting 94%.
[2023-04-11] MEDS: dexAMETHasone sod phosphate 4 MG/ML VIAL 6 MG IVPUSH (05:28)
--- NOTE | 2023-04-11 07:36 | PC.NURSE ---
Assumed care of pt at this time; call novak within reach. Stretcher locked and at lowest position for safety. Care ongoing.
[2023-04-11 08:13] LABS: Prothrombin Time 12.7 SEC (11.1-13.3)
[2023-04-11 08:16] LABS: Partial Thromboplastin Time 41.1 SEC (26.0-36.4)
[2023-04-11] MEDS: Azithromycin 500 MG in 0.9 % Sodium Chloride 250 ML 125 MG IV (08:18)
[2023-04-11] MEDS: cefTRIAXone sodium 1 GM in 0.9 % Sodium Chloride 50 ML IV (08:18)
[2023-04-11 08:19] LABS: D Dimer High Sensitivity < 150 NG/ML
--- NOTE | 2023-04-11 09:07 | PHA.MEDREC ---
Pharmacy Consult ? Medication Reconciliation Pharmacy has completed the medication reconciliation. Pt claims last took clozapine 150 mg at 04:00 this morning.
--- NOTE | 2023-04-11 09:15 | PC.NURSE ---
Pt brother jed called and update given
--- NOTE | 2023-04-11 12:00 | P.HPHOSP_ITS ---
<Statement entered by Nahum King MD - 04/12/23 13:30> The patient was seen and evaluated with CHRIS Perez. I agree with her note, assessment and plan with the following. In summary, A 62 year old lady with PMH of hypothyroidism hyperlipidemia, CKD stage 4, asthma/COPD overlap with recently diagnosed COVID-19 who presents for difficulties breathing found to have COVID-19 with associated pneumonia and hypoxemia from COPD exacerbation. # Hypoxemia 2/2 acute exacerbation of asthma/COPD # RLL pneumonia- likely post COVID bacterial pneumonia Oxygen supplement IV methylprednisolone 40 mg b.i.d. DuoNebs q.4h while awake IV antibiotics Wean O2 down as tolerated Rest of evaluations by PA note. History of Present Illness Date of Service: 04/11/23 Attending physician on admission: Nahum King Chief Complaint: neck pain 62-year-old female with history of unspecified mood disorder, hypothyroidism hyperlipidemia, CKD stage 4, asthma/COPD overlap with recently diagnosed COVID- 19 with symptoms starting on on 04/04 and positive test 04/09, presented to the ED last night for evaluation of bilateral neck pain and upper back pain. She states since 04/04, she has had symptoms of generalized weakness, dizziness, vomiting with dry heaves, subjective fevers with chills, and nonproductive cough. Has not taken temperature. No abdominal pain, diarrhea, sore throat, shortness of breath, palpitations, chest pain. She lives at home with her and son all who have COVID 19. She was initially seen in the ED on 04/09 for these symptoms with equivocal chest x-ray and was discharged home with 250 mg b.i.d. cefuroxime and cyclobenzaprine and oxycodone. THere was also question of UTI, but UC was contaminated. Returned last night due to ongoing symptoms. She was due to be discharged early this morning but on ambulation was noted to desaturate to 80% on room air and was placed on 2 L supplemental O2. On arrival, patient intermittently tachycardic to 104 but afebrile. Blood pressure stable. No hypoxia at rest. Labs on arrival without any significant leukocytosis or leukopenia. Renal function baseline. Mild hypernatremia of 149, chloride 121, CO2 18. Lactic acid 0.8. Troponin 4.6, BNP undetectable. D-dimer below detectable limits. Urinalysis again with 2+ leukocytes, 1+ blood, positive urinary sediment, negative bacteria. CXR negative. CT soft tissue of the neck without any evidence of soft tissue mass but shows mild paranasal sinus disease. Chest CT ordered showing mild, scattered patchy opacities within the dependent right lung base with a few air bronchograms which could represent atelectasis versus early infiltrates. No ground-glass opacities or mass. In ED, given 1 g IV ceftriaxone, 500 mg IV azithromycin, 10 mg cyclobenzaprine, 6 mg dexamethasone, 5 mg oxycodone. Review of Systems 2 Review of Systems: General: +subj fevers, +chills. No malaise, unintentional weight loss HEENT: No sore throat, nasal congestion, rhinorrhea, sinus pain, ear pain Cardiovascular: No chest pain, palpitations, or leg edema Respiratory: +cough. No shortness of breath, wheezing GI: No abdominal pain, nausea, vomiting, diarrhea, constipation, melena, hematochezia : No dysuria, hematuria, increased urinary frequency, decreased urinary output MSK: No myalgia, back pain. +b/l neck pain Neuro: No headaches, weakness, paresthesias Skin: No rashes or lesions [facility] Medical History CKD (chronic kidney disease), stage IV Hyperlipidemia Asthma-COPD overlap syndrome Mood disorder Hypothyroidism Social History Alcohol intake: never Smoked in Last 30 Days: Yes Use of substances other than those prescribed or required for medical reasons: No Advance Directives: No Advance Directives Information Provided: No Patient : No Meds Allergies Allergy/AdvReac Type Severity Reaction Status Date / Time guaifenesin [From ROBITUSSIN] AdvReac Unknown NAUSEA Verified 04/10/23 19:22 Active Medications: Current Medications Acetaminophen (Acetaminophen 325 Mg Tablet) 650 mg PO Q6H PRN PRN Reason: Pain, Mild (Pain Scale 1-3) Albuterol/Ipratropium (Albuterol/Iprat 2.5/0.5mg 3 Ml Ampul.Neb) 3 ml INHALE RQ4H WHILE AWAKE [facility] Heparin Sodium (Porcine) (Heparin Sodium,Porcine 5,000 Unit/Ml Vial) 5,000 unit SUBCUT Q12H [facility] Ceftriaxone Sodium 1 gm/ (Sodium Chloride) 50 mls @ 100 mls/hr IV Q24H [facility] Azithromycin 500 mg/ Sodium (Chloride) 250 mls @ 125 mls/hr IV Q24H [facility] Stop: 04/12/23 13:59 Lidocaine (Lidocaine 4 % Patch Adh..Patch) 1 patch TRANSDERMA DAILY [facility]; Protocol Ondansetron HCl (Ondansetron Hcl 4 Mg/2 Ml Vial) 4 mg IVPUSH Q8H PRN PRN Reason: Nausea and Vomiting Senna (Sennosides 8.6 Mg Tablet) 17.2 mg PO BEDTIME PRN PRN Reason: Constipation Sodium Chloride (0.9 % Sodium Chloride Flush 3 Ml Syringe) 3 ml IVFLUSH QSHIFT [facility] Home Medications Medication Instructions Recorded Confirmed Last Taken Type atorvastatin 10 mg tablet 10 mg PO DAILY 04/11/23 04/11/23 Unknown History calcitriol 0.25 mcg capsule 0.25 mcg PO DAILY 04/11/23 04/11/23 Unknown History cholecalciferol (vitamin D3) 50 100 mcg PO DAILY 04/11/23 04/11/23 Unknown History mcg (2,000 unit) tablet (Vitamin D3) clozapine 100 mg tablet 150 mg PO BEDTIME 04/11/23 04/11/23 04/11/23 04:00 History lamotrigine 150 mg tablet 150 mg PO DAILY 04/11/23 04/11/23 Unknown History levothyroxine 88 mcg tablet 88 mcg PO DAILY@0600 04/11/23 04/11/23 Unknown History pantoprazole 40 mg tablet,delayed 40 mg PO DAILY@1700 04/11/23 04/11/23 Unknown History release prochlorperazine maleate 10 mg 10 mg PO TID PRN Nausea And 04/11/23 04/11/23 Unknown History tablet Vomiting Physical Exam 2 Vital Signs and Narrative: Vital Signs: Last Vital Signs Temp 98.1 F 04/11/23 07:31 Pulse 102 H 04/11/23 07:31 Resp 17 04/11/23 07:31 BP 139/89 04/11/23 07:31 Pulse Ox 94 04/11/23 07:31 O2 Del Method Nasal Cannula 04/11/23 07:31 O2 Flow Rate 3 04/11/23 07:31 BMI result Body Mass Index 36.7 Constitutional - Awake and Alert, No apparent distress Eyes - PERRLA, EOMI Neck - no midline tenderness to palpation, supple. Bilateral tenderness palpation the lateral aspect of the neck with full range of motion Cardiovascular - S1S2, RRR, No edema Respiratory - Normal lung expansion, Normal respiratory effort, No respiratory distress, coarse crackles and diffuse wheezing bilaterally Gastrointestinal - NT / ND; +BS; No rebound or guarding Extremities - no calf tenderness bilaterally, no swelling Skin - Warm/Dry Neurological - Alert & oriented x3, CN II-XII in tact, 5/5 strength BUE and BLE Psychological - Appropriate affect Results Labs 04/10/23 22:13 04/10/23 22:13 Labs: Laboratory Results - last 24 hr 04/10/23 04/10/23 04/10/23 22:13 22:43 23:40 MCV 102.4 H MCH 31.2 MCHC 30.4 L RDW 14.5 Plt Count 135 L MPV 10.5 Immature Gran % (Auto) 1.7 H Neut % (Auto) 72.9 Lymph % (Auto) 16.4 L [place] % (Auto) 8.6 Eos % (Auto) 0.0 Baso % (Auto) 0.4 Lymph # (Auto) 0.8 L [place] # (Auto) 0.4 Eos # (Auto) 0.0 Baso # (Auto) 0.0 Abs Immat Gran (auto) 0.08 H Absolute Neuts (auto) 3.4 Absolute Nucleated RBC 0.000 Nucleated RBC % (auto) 0.0 PT INR APTT D-Dimer High Sensitivty Anion Gap 14 Estim Creat Clear Calc 21.7 Estimated GFR 16 Random Glucose 99 Lactic Acid 0.8 Calcium 9.4 Total Bilirubin 0.2 Direct Bilirubin < 0.2 AST 19 ALT 17 Alkaline Phosphatase 76 B-Natriuretic Peptide < 10 Total Protein 7.0 Albumin 3.9 Lipase 9 Urine Color Yellow Urine Appearance Clear Urine pH 6.0 Ur Specific [place] <= 1.005 Urine Protein Trace Urine Glucose (UA) Negative Urine Ketones Negative Urine Blood Small (1+) H Urine Nitrite Negative Ur Leukocyte Esterase Moderate (2+) H Urine RBC 3-5 H Urine WBC 21-50 H Ur Squamous Epith Cells 3-5 Urine Bacteria None Seen Hyaline Casts 0-2 S. pyogenes GrpA MEÑO Cancelled 04/11/23 07:31 MCV MCH MCHC RDW Plt Count MPV Immature Gran % (Auto) Neut % (Auto) Lymph % (Auto) [place] % (Auto) Eos % (Auto) Baso % (Auto) Lymph # (Auto) [place] # (Auto) Eos # (Auto) Baso # (Auto) Abs Immat Gran (auto) Absolute Neuts (auto) Absolute Nucleated RBC Nucleated RBC % (auto) PT 12.7 INR 1.0 APTT 41.1 H D-Dimer High Sensitivty < 150 Anion Gap Estim Creat Clear Calc Estimated GFR Random Glucose Lactic Acid Calcium Total Bilirubin Direct Bilirubin AST ALT Alkaline Phosphatase B-Natriuretic Peptide Total Protein Albumin Lipase Urine Color Urine Appearance Urine pH Ur Specific [place] Urine Protein Urine Glucose (UA) Urine Ketones Urine Blood Urine Nitrite Ur Leukocyte Esterase Urine RBC Urine WBC Ur Squamous Epith Cells Urine Bacteria Hyaline Casts S. pyogenes GrpA MEÑO Imaging Radiologist's Impressions: Impressions Chest X-Ray 04/10/23 22:55 IMPRESSION: No acute cardiopulmonary disease. Soft Tissue Neck X-Ray 04/10/23 22:55 IMPRESSION: 1. Nonspecific reversal of the cervical lordosis that could be related with patient's positioning or muscular spasm. 2. No acute compression deformity or traumatic subluxation. 3. Moderate multilevel cervical spondylosis more prominent in the lower cervical spine. 4. Prevertebral soft tissue thickening anterior to C5-C7 might be artifactual related with patient's positioning as the patient is partially flexing the neck; a repeat radiograph or further evaluation with a CT of the neck could be obtained as clinically warranted. Soft Tissue Neck CT 04/11/23 00:47 IMPRESSION: 1. No evidence of soft tissue mass. 2. Mild paranasal sinus disease. Chest CT 04/11/23 06:03 IMPRESSION: 1. Mild, scattered patchy opacities within the dependent right lung base with a few air bronchograms which could represent atelectasis versus early infiltrates. 2. No diffuse ground-glass airspace opacities. No large pulmonary nodule or mass. 3. No lymphadenopathy. Fleischner guidelines were followed. Assessment and Plan (1) COVID-19: Status: Acute (2) Asthma with COPD with exacerbation: Status: Acute (3) Exercise hypoxemia: Status: Acute (4) Acute cervical myofascial strain: Status: Acute Plan 62-year-old female with history of unspecified mood disorder, hypothyroidism hyperlipidemia, CKD stage 4, asthma/COPD overlap with recently diagnosed COVID- 19 with symptoms starting on on 04/04 and positive test 04/09 admitted for COVID-19 with associated pneumonia complicated by exercise hypoxemia and asthma/copd exacerbation. # acute exacerbation of asthma/COPD overlap with acute exercise hypoxemia -also possibly r/t COVID-19 infection, but less likely given symptom onset 1 week ago -desat to 80% with ambulation, 94-95% on RA at rest -IV methylprednisolone 40 mg b.i.d. -DuoNebs q.4h while awake -albuterol p.r.n. -continuous oximetry #RLL pneumonia- likely post COVID bacterial pneumonia -no sepsis at time of admission -CT chest shows mild, scattered patchy opacities within the dependent right lung base with a few air bronchograms -IV ceftriaxone and azithromycin (initiated 04/11) -symptomatic management -strep pneumo antigen, Legionella antigen, sputum culture pending -follow CBC, cultures # COVID-19 -initial symptoms 04/04, initial positive test 04/09. Continue airborne/contact precautions -symptomatic management -new indication for Decadron or antiviral therapy at this time given duration since symptom onset -PT eval for weakness # acute hypernatremia -Na 149 last night, recheck lytes now. Hypotonic fluids i # CKD stage 4 -renal function baseline #Mood disorder -continue lamictal # hypothyroidism -continue Synthroid DVT prophylaxis-heparin Full code Patient with COVID 19 with exercise hypoxemia to 80% on room air now with right lower lobe pneumonia and COPD exacerbation. Will require inpatient stay at least 2 midnights for further management with IV steroids, supplemental O2 p.r.n., and IV antibiotics as well as close monitoring of respiratory status to prevent decompensation. Quality Stroke Does the patient have a stroke diagnosis?: No VTE Prior VTE?: No VTE Risk Level:: Medical - moderate - high VTE Device Contraindication: Treatment Not Indicated VTE Drug Contraindication: N/A - Med Ordered
[2023-04-11] MEDS: Albuterol/Iprat 2.5/0.5MG 3 ML AMPUL.NEB INHALE ×3 (12:18→19:40)
[2023-04-11 12:52] LABS: MANUAL DIFF FLAG NO
[2023-04-11 12:53] LABS: Basophils Percent Auto 0.4 % (0-2); Hematocrit 40.7 % (37.0-47.0); Hemoglobin 12.6 g/dl (12.0-16.0); Imm Gran Abs Auto 0.09 X10*3/uL (0.00-0.03); Imm Gran Pct Auto 1.9 % (0.0-0.4); Lymphocytes Absolute Auto 0.4 X10*3/uL (1.2-4.9); Lymphocytes Percent Auto 8.9 % (20-40); Mean Corpuscular Hemoglobin 31.2 pg (27.0-33.0); Mean Corpuscular Volume 100.7 fL (80.0-98.0); Mean Platelet Volume 10.1 fL (9.4-12.3); Monocytes Absolute Auto 0.1 X10*3/uL (0.1-1.2); Monocytes Percent Auto 1.5 % (2-11); Neutrophils Percent Auto 87.3 % (45-73); Platelet Count 178 X10*3/uL (160-400); Red Blood Count 4.04 X10*6/uL (4.20-5.50); Red Cell Distribution Width 14.5 % (11.0-16.0); White Blood Count 4.6 X10*3/uL (4.8-10.8)
[2023-04-11 13:11] LABS: Anion Gap 13 (12-20); Blood Urea Nitrogen 20 mg/dL (9-16); Calcium 9.7 mg/dL (8.4-10.2); Carbon Dioxide 20 mmol/L (22-29); Chloride 123 mmol/L (96-108); Estimated Glomerular Filt Rate 16; Glucose Random 148 mg/dL (60-115); Potassium 4.3 mmol/L (3.3-5.1); Sodium 152 mmol/L (135-145)
[2023-04-11] MEDS: Atorvastatin Calcium 10 MG TABLET PO (13:50)
[2023-04-11] MEDS: Levothyroxine Sodium 88 MCG TABLET PO (13:50)
[2023-04-11] MEDS: Lidocaine 4 % Patch ADH..PATCH 1 PATCH TRANSDERMA (13:50)
[2023-04-11] MEDS: Heparin Sodium,Porcine 5,000 UNIT/ML VIAL 5000 UNIT SUBCUT ×2 (13:51→23:01)
[2023-04-11] MEDS: methylPREDNISolone Sod Succ 40 MG/ML VIAL IVPUSH (13:52)
--- NOTE | 2023-04-11 15:23 | MHC.EDTECH ---
THIS PCT JUST ASSUMED CARE OF pATIENT ,VITALS TAKEN AND PT BELONGING LIST DONE ,
[2023-04-11] MEDS: 0.9 % Sodium Chloride Flush 3 ML SYRINGE IVFLUSH ×2 (18:15→23:01)
[2023-04-11] MEDS: cloZAPine 25 MG TABLET 150 MG PO (23:00)
[2023-04-11] MEDS: Sennosides 8.6 MG TABLET 17.2 MG PO (23:01)
[2023-04-12] VITALS (10 sets, daily range): BP systolic 110–145; BP diastolic 61–86; PULSE 95–111; RESP 16–20; TEMP 36–36.8; O2SAT 91–96
[2023-04-12] MEDS: methylPREDNISolone Sod Succ 40 MG/ML VIAL IVPUSH ×2 (00:48→12:58)
[2023-04-12] MEDS: Acetaminophen 325 MG TABLET 650 MG PO (06:08)
[2023-04-12] MEDS: Levothyroxine Sodium 88 MCG TABLET PO (06:09)
[2023-04-12 07:12] LABS: MANUAL DIFF FLAG NO
[2023-04-12 07:15] LABS: Basophils Percent Auto 0.1 % (0-2); Hematocrit 38.9 % (37.0-47.0); Imm Gran Abs Auto 0.28 X10*3/uL (0.00-0.03); Lymphocytes Absolute Auto 0.7 X10*3/uL (1.2-4.9); Lymphocytes Percent Auto 7.5 % (20-40); Mean Corpuscular HGB Conc 30.8 g/dl (31.0-35.0); Mean Corpuscular Hemoglobin 30.8 pg (27.0-33.0); Mean Corpuscular Volume 99.7 fL (80.0-98.0); Mean Platelet Volume 10.4 fL (9.4-12.3); Monocytes Absolute Auto 0.2 X10*3/uL (0.1-1.2); Monocytes Percent Auto 2.6 % (2-11); Neutrophils Percent Auto 86.8 % (45-73); Platelet Count 198 X10*3/uL (160-400); Red Cell Distribution Width 14.3 % (11.0-16.0); White Blood Count 9.3 X10*3/uL (4.8-10.8)
[2023-04-12] MEDS: Albuterol/Iprat 2.5/0.5MG 3 ML AMPUL.NEB INHALE ×4 (07:24→19:51)
[2023-04-12 07:29] LABS: Anion Gap 14 (12-20); Blood Urea Nitrogen 27 mg/dL (9-16); Calcium 9.8 mg/dL (8.4-10.2); Carbon Dioxide 21 mmol/L (22-29); Chloride 118 mmol/L (96-108); Creatinine Clr Calc Pharmacy 23.2; Estimated Glomerular Filt Rate 17; Glucose Random 161 mg/dL (60-115); Potassium 4.6 mmol/L (3.3-5.1); Sodium 148 mmol/L (135-145)
[2023-04-12] MEDS: calcitrioL 0.25 MCG CAPSULE PO (09:39)
[2023-04-12] MEDS: Cholecalciferol (Vitamin D3) 25 MCG TABLET 100 MCG PO (09:39)
[2023-04-12] MEDS: lamoTRIgine 100 MG TABLET 150 MG PO (09:39)
[2023-04-12] MEDS: Azithromycin 500 MG in 0.9 % Sodium Chloride 250 ML 125 MG IV (09:39)
[2023-04-12] MEDS: Lidocaine 4 % Patch ADH..PATCH 1 PATCH TRANSDERMA (09:39)
[2023-04-12] MEDS: Atorvastatin Calcium 10 MG TABLET PO (09:39)
[2023-04-12] MEDS: 0.9 % Sodium Chloride Flush 3 ML SYRINGE IVFLUSH ×3 (09:40→20:07)
--- NOTE | 2023-04-12 12:15 | P.PNIM_ITS ---
Subjective Subjective Date of Service: 04/12/23 Interval History: f/u on acute hypoxic resp failure, covid 19, pneumonia, hypernatremia Still signficantly hypoxic and requiring O2 still, sodium level remains high Physical Exam 2 Vital Signs: Vital Signs: Last Vital Signs Temp 96.8 F 04/12/23 11:57 Pulse 105 H 04/12/23 11:57 Resp 18 04/12/23 11:57 BP 110/73 04/12/23 11:57 Pulse Ox 91 L 04/12/23 11:57 O2 Del Method Nasal Cannula 04/12/23 11:57 O2 Flow Rate 4 04/12/23 11:57 BMI result Body Mass Index 36.7 Const: Other: General: AO X 3, no acute distress Resp: some wheezing bilateral, no accessory muscle use CVS: S1,S2,RRR GI: +BS, NT, no distention Skin: No rash Neuro: motor grossly intact Psych: appropriate affect Objective Data Active Medications Acetaminophen (Acetaminophen 325 Mg Tablet) 650 mg PO Q6H PRN PRN Reason: Pain, Mild (Pain Scale 1-3) Last Admin: 04/12/23 06:08 Dose: 650 mg Documented By: HAYES Albuterol Sulfate (Albuterol Sulfate 90 Mcg 8 Gm Inhaler) 2 puff INHALE Q4H PRN PRN Reason: shortness of breath or wheezing Albuterol/Ipratropium (Albuterol/Iprat 2.5/0.5mg 3 Ml Ampul.Neb) 3 ml INHALE RQ4H WHILE AWAKE [facility] Last Admin: 04/12/23 11:23 Dose: 3 ml Documented By: BLANKA Atorvastatin Calcium (Atorvastatin Calcium 10 Mg Tablet) 10 mg PO DAILY [facility] Last Admin: 04/12/23 09:39 Dose: 10 mg Documented By: MAYANK Benzonatate (Benzonatate 100 Mg Capsule) 100 mg PO TID PRN PRN Reason: Cough Calcitriol (Calcitriol 0.25 Mcg Capsule) 0.25 mcg PO DAILY [facility] Last Admin: 04/12/23 09:39 Dose: 0.25 mcg Documented By: MAYANK Clozapine (Clozapine 25 Mg Tablet) 150 mg PO BEDTIME [facility] Last Admin: 04/11/23 23:00 Dose: 150 mg Documented By: HAYES Heparin Sodium (Porcine) (Heparin Sodium,Porcine 5,000 Unit/Ml Vial) 5,000 unit SUBCUT Q12H [facility] Last Admin: 04/11/23 23:01 Dose: 5,000 unit Documented By: HAYES Ceftriaxone Sodium 1 gm/ (Sodium Chloride) 50 mls @ 100 mls/hr IV Q24H [facility] Azithromycin 500 mg/ Sodium (Chloride) 250 mls @ 125 mls/hr IV Q24H [facility] Stop: 04/13/23 09:59 Last Infusion: 04/12/23 11:52 Dose: Infused Documented By: MAYANK Lamotrigine (Lamotrigine 100 Mg Tablet) 150 mg PO DAILY [facility] Last Admin: 04/12/23 09:39 Dose: 150 mg Documented By: MAYANK Levothyroxine Sodium (Levothyroxine Sodium 88 Mcg Tablet) 88 mcg PO DAILY@0600 [facility] Last Admin: 04/12/23 06:09 Dose: 88 mcg Documented By: HAYES Lidocaine (Lidocaine 4 % Patch Adh..Patch) 1 patch TRANSDERMA DAILY [facility]; Protocol Last Admin: 04/12/23 09:39 Dose: 1 patch Documented By: MAYANK Methylprednisolone Sodium Succinate (Methylprednisolone Sod Succ 40 Mg/Ml Vial) 40 mg IVPUSH Q12H [facility] Last Admin: 04/12/23 00:48 Dose: 40 mg Documented By: HAYES Ondansetron HCl (Ondansetron Hcl 4 Mg/2 Ml Vial) 4 mg IVPUSH Q8H PRN PRN Reason: Nausea and Vomiting Prochlorperazine Maleate (Prochlorperazine Maleate 5 Mg Tablet) 10 mg PO TID PRN PRN Reason: Nausea And Vomiting Senna (Sennosides 8.6 Mg Tablet) 17.2 mg PO BEDTIME PRN PRN Reason: Constipation Last Admin: 04/11/23 23:01 Dose: 17.2 mg Documented By: HAYES Sodium Chloride (0.9 % Sodium Chloride Flush 3 Ml Syringe) 3 ml IVFLUSH QSHIFT [facility] Last Admin: 04/12/23 09:40 Dose: 3 ml Documented By: MAYANK Tizanidine HCl (Tizanidine Hcl 4 Mg Tablet) 4 mg PO TID PRN PRN Reason: neck spasm Vitamin D (Cholecalciferol (Vitamin D3) 25 Mcg Tablet) 100 mcg PO DAILY [facility] Last Admin: 04/12/23 09:39 Dose: 100 mcg Documented By: MAYANK Labs 04/12/23 06:47 04/12/23 06:47 Labs: Laboratory Results - last 24 hr 04/11/23 04/12/23 12:48 06:47 MCV 100.7 H 99.7 H MCH 31.2 30.8 MCHC 31.0 30.8 L RDW 14.5 14.3 Plt Count 178 D 198 MPV 10.1 10.4 Immature Gran % (Auto) 1.9 H 3.0 H Neut % (Auto) 87.3 H 86.8 H Lymph % (Auto) 8.9 L 7.5 L [place] % (Auto) 1.5 L 2.6 Eos % (Auto) 0.0 0.0 Baso % (Auto) 0.4 0.1 Lymph # (Auto) 0.4 L 0.7 L [place] # (Auto) 0.1 0.2 Eos # (Auto) 0.0 0.0 Baso # (Auto) 0.0 0.0 Abs Immat Gran (auto) 0.09 H 0.28 H Absolute Neuts (auto) 4.0 8.0 Absolute Nucleated RBC 0.000 0.000 Nucleated RBC % (auto) 0.0 0.0 Anion Gap 13 14 Estim Creat Clear Calc 22.0 23.2 Estimated GFR 16 17 Random Glucose 148 H 161 H Calcium 9.7 9.8 Microbiology Microbiology Results: Microbiology 04/11/23 08:00 Blood Culture - Preliminary Blood - Venous No growth after 24 hours. 04/11/23 08:00 Blood Culture - Preliminary Blood - Venous No growth after 24 hours. 04/10/23 23:40 Urine Culture - Final Urine clean catch - Urine vuong top No growth. Assessment and Plan (1) COVID-19: Status: Acute (2) Asthma with COPD with exacerbation: Status: Acute Plan 62-year-old female with history of unspecified mood disorder, hypothyroidism hyperlipidemia, CKD stage 4, asthma/COPD overlap with recently diagnosed COVID- 19 with symptoms starting on on 04/04 and positive test 04/09 admitted for COVID-19 with associated pneumonia complicated by exercise hypoxemia and asthma/copd exacerbation. # acute exacerbation of asthma/COPD overlap with acute exercise hypoxemia -also possibly r/t COVID-19 infection, but less likely given symptom onset 1 week ago -desat to 80% with ambulation, 94-95% on RA at rest -IV methylprednisolone 40 mg b.i.d. -DuoNebs q.4h while awake -albuterol p.r.n. -continuous oximetry and joan of O2 as tolerated, presently 91 on 4 l #RLL pneumonia- likely post COVID bacterial pneumonia -no sepsis at time of admission -CT chest shows mild, scattered patchy opacities within the dependent right lung base with a few air bronchograms -continue IV ceftriaxone and azithromycin (initiated 04/11) -symptomatic management -strep pneumo antigen, Legionella antigen, sputum culture pending -follow CBC, cultures # COVID-19 -initial symptoms 04/04, initial positive test 04/09. Continue airborne/contact precautions -symptomatic management -nO indication for Decadron or antiviral therapy at this time given duration since symptom onset -PT eval for weakness prior to dc # acute hypernatremia, better but still high -Na 149 last night, recheck lytes now. Encourage oral water and if not improving, then iv water # CKD stage 4 -renal function baseline #Mood disorder -continue lamictal # hypothyroidism -continue Synthroid #Hyperglycemia, likely pre diabetic and steroid, check Hgb A1C DVT prophylaxis-heparin Full code Patient with COVID 19 with exercise hypoxemia to 80% on room air now with right lower lobe pneumonia and COPD exacerbation. Will require inpatient stay at least 2 midnights for further management with IV steroids, supplemental O2 p.r.n., and IV antibiotics as well as close monitoring of respiratory status to prevent decompensation. Quality Stroke Does the patient have a stroke diagnosis?: No VTE Prior VTE?: No VTE Risk Level:: Medical - moderate - high VTE Device Contraindication: Treatment Not Indicated VTE Drug Contraindication: N/A - Med Ordered
[2023-04-12] MEDS: Heparin Sodium,Porcine 5,000 UNIT/ML VIAL 5000 UNIT SUBCUT (12:58)
--- NOTE | 2023-04-12 15:33 | MHC.CM.PN ---
PT ADMITTED COVID - 19 POSITIVE CM ATTEMPTED TO REACH PT AT THE CELL NUMBER LISTED [phone] THE VM WAS ACTUALLY THAT OF THE PTS , ALETHA VM WAS LEFT REQUESTING A RETURN CALL CM ALSO ATTEMPTED TO REACH PTS DAUGHTER, AJ [phone] THE NUMBER WAS OUT OF SERVICE CM ATTEMPTED TO CALL PTS ROOM PHONE [phone] NO ANSWER CM WILL ATTEMPT TO REACH PTS AT A LATER TIME OR WAIT FOR HIS RETURN CALL
[2023-04-12] MEDS: ondansetron HCL 4 MG/2 ML VIAL IVPUSH (18:07)
[2023-04-12] MEDS: cefTRIAXone sodium 1 GM in 0.9 % Sodium Chloride 50 ML IV (20:05)
[2023-04-12] MEDS: cloZAPine 25 MG TABLET 150 MG PO (20:07)
[2023-04-12] MEDS: Benzonatate 100 MG CAPSULE PO (20:11)
[2023-04-13] VITALS (8 sets, daily range): BP systolic 123–132; BP diastolic 65–74; PULSE 99–113; RESP 16–20; TEMP 36.6–37; O2SAT 91–96
[2023-04-13] MEDS: methylPREDNISolone Sod Succ 40 MG/ML VIAL IVPUSH ×2 (00:54→11:55)
[2023-04-13] MEDS: Heparin Sodium,Porcine 5,000 UNIT/ML VIAL 5000 UNIT SUBCUT ×2 (00:54→11:54)
[2023-04-13] MEDS: Levothyroxine Sodium 88 MCG TABLET PO (06:23)
[2023-04-13] MEDS: Albuterol/Iprat 2.5/0.5MG 3 ML AMPUL.NEB INHALE ×4 (07:39→19:23)
[2023-04-13] MEDS: Atorvastatin Calcium 10 MG TABLET PO (07:59)
[2023-04-13] MEDS: Azithromycin 500 MG in 0.9 % Sodium Chloride 250 ML 125 MG IV (07:59)
[2023-04-13] MEDS: 0.9 % Sodium Chloride Flush 3 ML SYRINGE IVFLUSH ×3 (07:59→21:57)
[2023-04-13] MEDS: calcitrioL 0.25 MCG CAPSULE PO (07:59)
[2023-04-13] MEDS: Cholecalciferol (Vitamin D3) 25 MCG TABLET 100 MCG PO (07:59)
[2023-04-13] MEDS: Lidocaine 4 % Patch ADH..PATCH 1 PATCH TRANSDERMA (08:00)
[2023-04-13] MEDS: lamoTRIgine 100 MG TABLET 150 MG PO (08:00)
--- NOTE | 2023-04-13 11:03 | MHC.CM.PN ---
IMM 1/2. Pt lives at home with her and daughter. Pt is self-care. Pts will transport her home at D/C. HCP declined at this time. PCP: Dr. Erasmo Morrison
--- NOTE | 2023-04-13 12:08 | HO.PM.IMPN ---
Subjective Subjective Date of Service: 04/13/23 Interval History: f/u on acute hypoxic resp failure, covid 19, pneumonia, hypernatremia, copd/asthma exa Doing ok on room air, marginal O2 saturations Physical Exam Vital Signs: Vital Signs: Last Vital Signs Temp 98.6 F 04/13/23 07:30 Pulse 100 04/13/23 11:46 Resp 16 04/13/23 11:46 BP 125/74 04/13/23 07:30 Pulse Ox 91 L 04/13/23 07:30 O2 Del Method Nasal Cannula 04/13/23 07:30 O2 Flow Rate 1 04/13/23 07:30 BMI result Body Mass Index 36.7 Const: Other: General: AO X 3, no acute distress Resp: diminished bilateral , no wheeze and normal resp effort CVS: S1,S2,RRR GI: +BS, NT, no distention Skin: No rash Neuro: motor grossly intact Psych: appropriate affect Objective Data Active Medications Acetaminophen (Acetaminophen 325 Mg Tablet) 650 mg PO Q6H PRN PRN Reason: Pain, Mild (Pain Scale 1-3) Last Admin: 04/12/23 06:08 Dose: 650 mg Documented By: HAYES Albuterol Sulfate (Albuterol Sulfate 90 Mcg 8 Gm Inhaler) 2 puff INHALE Q4H PRN PRN Reason: shortness of breath or wheezing Albuterol/Ipratropium (Albuterol/Iprat 2.5/0.5mg 3 Ml Ampul.Neb) 3 ml INHALE RQ4H WHILE AWAKE [facility] Last Admin: 04/13/23 11:43 Dose: 3 ml Documented By: BLANKA Atorvastatin Calcium (Atorvastatin Calcium 10 Mg Tablet) 10 mg PO DAILY [facility] Last Admin: 04/13/23 07:59 Dose: 10 mg Documented By: MAYANK Benzonatate (Benzonatate 100 Mg Capsule) 100 mg PO TID PRN PRN Reason: Cough Last Admin: 04/12/23 20:11 Dose: 100 mg Documented By: NADYA Calcitriol (Calcitriol 0.25 Mcg Capsule) 0.25 mcg PO DAILY [facility] Last Admin: 04/13/23 07:59 Dose: 0.25 mcg Documented By: MAYANK Clozapine (Clozapine 25 Mg Tablet) 150 mg PO BEDTIME [facility] Last Admin: 04/12/23 20:07 Dose: 150 mg Documented By: NADYA Heparin Sodium (Porcine) (Heparin Sodium,Porcine 5,000 Unit/Ml Vial) 5,000 unit SUBCUT Q12H [facility] Last Admin: 04/13/23 11:54 Dose: 5,000 unit Documented By: MAYANK Ceftriaxone Sodium 1 gm/ (Sodium Chloride) 50 mls @ 100 mls/hr IV Q24H [facility] Last Infusion: 04/12/23 20:45 Dose: Infused Documented By: NADYA Lamotrigine (Lamotrigine 100 Mg Tablet) 150 mg PO DAILY [facility] Last Admin: 04/13/23 08:00 Dose: 150 mg Documented By: MAYANK Levothyroxine Sodium (Levothyroxine Sodium 88 Mcg Tablet) 88 mcg PO DAILY@0600 [facility] Last Admin: 04/13/23 06:23 Dose: 88 mcg Documented By: NADYA Lidocaine (Lidocaine 4 % Patch Adh..Patch) 1 patch TRANSDERMA DAILY [facility]; Protocol Last Admin: 04/13/23 08:00 Dose: 1 patch Documented By: MAYANK Methylprednisolone Sodium Succinate (Methylprednisolone Sod Succ 40 Mg/Ml Vial) 40 mg IVPUSH Q12H [facility] Last Admin: 04/13/23 11:55 Dose: 40 mg Documented By: MAYANK Ondansetron HCl (Ondansetron Hcl 4 Mg/2 Ml Vial) 4 mg IVPUSH Q8H PRN PRN Reason: Nausea and Vomiting Last Admin: 04/12/23 18:07 Dose: 4 mg Documented By: MAYANK Prochlorperazine Maleate (Prochlorperazine Maleate 5 Mg Tablet) 10 mg PO TID PRN PRN Reason: Nausea And Vomiting Senna (Sennosides 8.6 Mg Tablet) 17.2 mg PO BEDTIME PRN PRN Reason: Constipation Last Admin: 04/11/23 23:01 Dose: 17.2 mg Documented By: HAYES Sodium Chloride (0.9 % Sodium Chloride Flush 3 Ml Syringe) 3 ml IVFLUSH QSHIFT [facility] Last Admin: 04/13/23 07:59 Dose: 3 ml Documented By: MAYANK Tizanidine HCl (Tizanidine Hcl 4 Mg Tablet) 4 mg PO TID PRN PRN Reason: neck spasm Vitamin D (Cholecalciferol (Vitamin D3) 25 Mcg Tablet) 100 mcg PO DAILY [facility] Last Admin: 04/13/23 07:59 Dose: 100 mcg Documented By: MAYANK Labs 04/12/23 06:47 04/12/23 06:47 Microbiology Microbiology Results: Microbiology 04/11/23 08:00 Blood Culture - Preliminary Blood - Venous No growth after 48 hours. 04/11/23 08:00 Blood Culture - Preliminary Blood - Venous No growth after 48 hours. 04/10/23 23:40 Urine Culture - Final Urine clean catch - Urine vuong top No growth. Assessment and Plan (1) COVID-19: Status: Acute (2) Asthma with COPD with exacerbation: Status: Acute Plan 62-year-old female with history of unspecified mood disorder, hypothyroidism hyperlipidemia, CKD stage 4, asthma/COPD overlap with recently diagnosed COVID-19 with symptoms starting on on 04/04 and positive test 04/09 admitted for COVID-19 with associated pneumonia complicated by exercise hypoxemia and asthma/copd exacerbation. # acute exacerbation of asthma/COPD overlap with hypoxia, worse with activity, probably from recent covid and PNA -continue present treatment with O2 keep sat 88 to 92, IV steroid, and bronchodilators by Neb, PRN couh meds #RLL pneumonia- likely post COVID bacterial pneumonia -no sepsis at time of admission -CT chest shows mild, scattered patchy opacities within the dependent right lung base with a few air bronchograms -continue IV ceftriaxone and azithromycin (initiated 04/11) -symptomatic management -strep pneumo and Legionella antigen pending, sputum culture pending -follow CBC, cultures # COVID-19 -initial symptoms 04/04, initial positive test 04/09. Continue airborne/contact precautions -symptomatic management -nO indication for Decadron or antiviral therapy at this time given duration since symptom onset -PT eval for weakness prior to dc # acute hypernatremia, was trending down, repeat labs today # CKD stage 4 -renal function baseline #Mood disorder -continue lamictal # hypothyroidism -continue Synthroid #Hyperglycemia, likely pre diabetic and steroid, check Hgb A1C DVT prophylaxis-heparin Full code d/t PNA, resp failure with hypoxia, covid, asthma that is being managed with IV steroid with marginal O2 saturation, she's needs inpatient management Quality Stroke Does the patient have a stroke diagnosis?: No VTE Prior VTE?: No VTE Risk Level:: Medical - moderate - high VTE Device Contraindication: Treatment Not Indicated VTE Drug Contraindication: N/A - Med Ordered
[2023-04-13 12:44] LABS: Anion Gap 12 (12-20); Blood Urea Nitrogen 38 mg/dL (9-16); Calcium 9.8 mg/dL (8.4-10.2); Carbon Dioxide 21 mmol/L (22-29); Chloride 117 mmol/L (96-108); Creatinine Clr Calc Pharmacy 24.3; Estimated Glomerular Filt Rate 18; Glucose Random 119 mg/dL (60-115); Potassium 4.4 mmol/L (3.3-5.1); Sodium 146 mmol/L (135-145)
[2023-04-13 13:19] LABS: Estimated Average Glucose 100 mg/dL; Hemoglobin A1c % 5.1 % (<6.0)
[2023-04-13] MEDS: cloZAPine 25 MG TABLET 150 MG PO (21:55)
[2023-04-13] MEDS: cefTRIAXone sodium 1 GM in 0.9 % Sodium Chloride 50 ML IV (21:55)
[2023-04-13] MEDS: Benzonatate 100 MG CAPSULE PO (21:56)
[2023-04-14] VITALS (12 sets, daily range): BP systolic 118–138; BP diastolic 60–76; PULSE 96–112; RESP 19–91; TEMP 36.1–36.8; O2SAT 89–96
[2023-04-14] MEDS: Heparin Sodium,Porcine 5,000 UNIT/ML VIAL 5000 UNIT SUBCUT ×2 (00:44→11:45)
[2023-04-14] MEDS: methylPREDNISolone Sod Succ 40 MG/ML VIAL IVPUSH ×2 (00:45→11:45)
[2023-04-14] MEDS: Levothyroxine Sodium 88 MCG TABLET PO (06:16)
[2023-04-14] MEDS: 0.9 % Sodium Chloride Flush 3 ML SYRINGE IVFLUSH (08:05)
[2023-04-14] MEDS: lamoTRIgine 100 MG TABLET 150 MG PO (08:05)
[2023-04-14] MEDS: calcitrioL 0.25 MCG CAPSULE PO (08:05)
[2023-04-14] MEDS: Cholecalciferol (Vitamin D3) 25 MCG TABLET 100 MCG PO (08:05)
[2023-04-14] MEDS: Atorvastatin Calcium 10 MG TABLET PO (08:05)
[2023-04-14 08:08] LABS: Anion Gap 13 (12-20); Blood Urea Nitrogen 44 mg/dL (9-16); Calcium 9.7 mg/dL (8.4-10.2); Carbon Dioxide 21 mmol/L (22-29); Chloride 119 mmol/L (96-108); Creatinine Clr Calc Pharmacy 23.6; Estimated Glomerular Filt Rate 18; Glucose Random 145 mg/dL (60-115); Potassium 4.7 mmol/L (3.3-5.1); Sodium 148 mmol/L (135-145)
[2023-04-14] MEDS: Albuterol/Iprat 2.5/0.5MG 3 ML AMPUL.NEB INHALE ×4 (08:52→19:46)
--- NOTE | 2023-04-14 12:20 | HO.PM.IMPN ---
Subjective Subjective Date of Service: 04/14/23 Interval History: f/u on acute hypoxic resp failure, covid 19, pneumonia, hypernatremia, copd/asthma exa her breathing is better, and clinically looks better, sodium has gone up since yesterday, encouraged to drink plenty of water Physical Exam Vital Signs: Vital Signs: Last Vital Signs Temp 97.3 F 04/14/23 07:54 Pulse 112 H 04/14/23 11:59 Resp 20 04/14/23 11:59 BP 136/69 04/14/23 07:54 Pulse Ox 92 04/14/23 08:03 O2 Del Method Room Air 04/14/23 08:03 O2 Flow Rate 1 04/13/23 15:19 BMI result Body Mass Index 36.7 Const: Other: General: AO X 3, no acute distress Resp: disminished, no wheezes, no rales CVS: S1,S2,RRR GI: +BS, NT, no distention Skin: No rash Neuro: motor grossly intact Psych: appropriate affect Objective Data Active Medications Acetaminophen (Acetaminophen 325 Mg Tablet) 650 mg PO Q6H PRN PRN Reason: Pain, Mild (Pain Scale 1-3) Last Admin: 04/12/23 06:08 Dose: 650 mg Documented By: HAYES Albuterol Sulfate (Albuterol Sulfate 90 Mcg 8 Gm Inhaler) 2 puff INHALE Q4H PRN PRN Reason: shortness of breath or wheezing Albuterol/Ipratropium (Albuterol/Iprat 2.5/0.5mg 3 Ml Ampul.Neb) 3 ml INHALE RQ4H WHILE AWAKE [facility] Last Admin: 04/14/23 11:59 Dose: 3 ml Documented By: FERNIE Atorvastatin Calcium (Atorvastatin Calcium 10 Mg Tablet) 10 mg PO DAILY [facility] Last Admin: 04/14/23 08:05 Dose: 10 mg Documented By: SABA Benzonatate (Benzonatate 100 Mg Capsule) 100 mg PO TID PRN PRN Reason: Cough Last Admin: 04/13/23 21:56 Dose: 100 mg Documented By: NADYA Calcitriol (Calcitriol 0.25 Mcg Capsule) 0.25 mcg PO DAILY [facility] Last Admin: 04/14/23 08:05 Dose: 0.25 mcg Documented By: SABA Clozapine (Clozapine 25 Mg Tablet) 150 mg PO BEDTIME [facility] Last Admin: 04/13/23 21:55 Dose: 150 mg Documented By: NADYA Heparin Sodium (Porcine) (Heparin Sodium,Porcine 5,000 Unit/Ml Vial) 5,000 unit SUBCUT Q12H [facility] Last Admin: 04/14/23 11:45 Dose: 5,000 unit Documented By: SABA Ceftriaxone Sodium 1 gm/ (Sodium Chloride) 50 mls @ 100 mls/hr IV Q24H [facility] Last Infusion: 04/13/23 23:00 Dose: Infused Documented By: NADYA Lamotrigine (Lamotrigine 100 Mg Tablet) 150 mg PO DAILY [facility] Last Admin: 04/14/23 08:05 Dose: 150 mg Documented By: SABA Levothyroxine Sodium (Levothyroxine Sodium 88 Mcg Tablet) 88 mcg PO DAILY@0600 [facility] Last Admin: 04/14/23 06:16 Dose: 88 mcg Documented By: NADYA Lidocaine (Lidocaine 4 % Patch Adh..Patch) 1 patch TRANSDERMA DAILY [facility]; Protocol Last Admin: 04/14/23 08:05 Dose: Not Given Documented By: SABA Non-Admin Reason: Patient Refused Methylprednisolone Sodium Succinate (Methylprednisolone Sod Succ 40 Mg/Ml Vial) 40 mg IVPUSH Q12H [facility] Last Admin: 04/14/23 11:45 Dose: 40 mg Documented By: SABA Ondansetron HCl (Ondansetron Hcl 4 Mg/2 Ml Vial) 4 mg IVPUSH Q8H PRN PRN Reason: Nausea and Vomiting Last Admin: 04/12/23 18:07 Dose: 4 mg Documented By: MAYANK Prochlorperazine Maleate (Prochlorperazine Maleate 5 Mg Tablet) 10 mg PO TID PRN PRN Reason: Nausea And Vomiting Senna (Sennosides 8.6 Mg Tablet) 17.2 mg PO BEDTIME PRN PRN Reason: Constipation Last Admin: 04/11/23 23:01 Dose: 17.2 mg Documented By: HAYES Sodium Chloride (0.9 % Sodium Chloride Flush 3 Ml Syringe) 3 ml IVFLUSH QSHIFT [facility] Last Admin: 04/14/23 08:05 Dose: 3 ml Documented By: SABA Tizanidine HCl (Tizanidine Hcl 4 Mg Tablet) 4 mg PO TID PRN PRN Reason: neck spasm Vitamin D (Cholecalciferol (Vitamin D3) 25 Mcg Tablet) 100 mcg PO DAILY [facility] Last Admin: 04/14/23 08:05 Dose: 100 mcg Documented By: SABA Labs 04/12/23 06:47 04/14/23 07:08 Labs: Laboratory Results - last 24 hr 04/13/23 04/14/23 12:23 07:08 Hold Purple Top SEE NOTE Anion Gap 12 13 Estim Creat Clear Calc 24.3 23.6 Estimated GFR 18 18 Random Glucose 119 H 145 H Estimat Average Glucose 100 Hemoglobin A1c % 5.1 Calcium 9.8 9.7 Microbiology Microbiology Results: Microbiology 04/11/23 08:00 Blood Culture - Preliminary Blood - Venous No growth after 48 hours. 04/11/23 08:00 Blood Culture - Preliminary Blood - Venous No growth after 48 hours. Assessment and Plan (1) COVID-19: Status: Acute (2) Asthma with COPD with exacerbation: Status: Acute Plan 62-year-old female with history of unspecified mood disorder, hypothyroidism hyperlipidemia, CKD stage 4, asthma/COPD overlap with recently diagnosed COVID-19 with symptoms starting on on 04/04 and positive test 04/09 admitted for COVID-19 with associated pneumonia complicated by exercise hypoxemia and asthma/copd exacerbation. # acute exacerbation of asthma/COPD overlap with hypoxia, worse with activity, probably from recent covid and PNA -continue present treatment with O2 keep sat 88 to 92, IV steroid to PO, and bronchodilators by Neb, PRN cou meds #RLL pneumonia- likely post COVID bacterial pneumonia -no sepsis at time of admission -CT chest shows mild, scattered patchy opacities within the dependent right lung base with a few air bronchograms -continue IV ceftriaxone and azithromycin (initiated 04/11) -symptomatic management -strep pneumo and Legionella antigen pending, sputum culture pending -follow CBC, cultures # COVID-19 -initial symptoms 04/04, initial positive test 04/09. Continue airborne/contact precautions -symptomatic management -nO indication for Decadron or antiviral therapy at this time given duration since symptom onset -PT eval for weakness prior to dc # acute hypernatremia, higher today, with try oral water and if not working then IV water # CKD stage 4 -renal function baseline #Mood disorder -continue lamictal # hypothyroidism -continue Synthroid #Hyperglycemia, likely from steroid, A1C = 5.1 DVT prophylaxis-heparin Full code d/t PNA, resp failure with hypoxia, covid, asthma that is being managed with IV steroid with marginal O2 saturation, additional has hypernatremia that increase risk of mortality while in the hospital and therefore needs close monitoring Quality Stroke Does the patient have a stroke diagnosis?: No VTE Prior VTE?: No VTE Risk Level:: Medical - moderate - high VTE Device Contraindication: Treatment Not Indicated VTE Drug Contraindication: N/A - Med Ordered
[2023-04-14 17:15] LABS: Strep Pneumo Ag urine Not Detected (Not Detected)
[2023-04-14 17:48] LABS: Anion Gap 16 (12-20); Blood Urea Nitrogen 43 mg/dL (9-16); Calcium 9.1 mg/dL (8.4-10.2); Carbon Dioxide 21 mmol/L (22-29); Chloride 112 mmol/L (96-108); Creatinine Clr Calc Pharmacy 24.7; Estimated Glomerular Filt Rate 18; Glucose Random 228 mg/dL (60-115); Potassium 4.5 mmol/L (3.3-5.1); Sodium 144 mmol/L (135-145)
[2023-04-14] MEDS: cefTRIAXone sodium 1 GM in 0.9 % Sodium Chloride 50 ML IV (19:53)
[2023-04-14] MEDS: Acetaminophen 325 MG TABLET 650 MG PO (20:47)
[2023-04-14] MEDS: cloZAPine 25 MG TABLET 150 MG PO (20:47)
[2023-04-15] MEDS: methylPREDNISolone Sod Succ 40 MG/ML VIAL IVPUSH ×2 (00:54→14:51)
[2023-04-15] MEDS: Heparin Sodium,Porcine 5,000 UNIT/ML VIAL 5000 UNIT SUBCUT (00:54)
[2023-04-15 02:29] LABS: Legionella Ag Urine Not Detected (Not Detected)
[2023-04-15 03:14] VITALS: BP 142/81; PULSE 99; RESP 22; TEMP 36.4; O2SAT 96
[2023-04-15] MEDS: Benzonatate 100 MG CAPSULE PO (06:12)
[2023-04-15 07:34] VITALS: PULSE 87; RESP 22; O2SAT 99
[2023-04-15 07:41] VITALS: BP 134/84; PULSE 91; RESP 91; TEMP 36.1; O2SAT 95
[2023-04-15 08:08] LABS: Anion Gap 14 (12-20); Blood Urea Nitrogen 42 mg/dL (9-16); Calcium 9.4 mg/dL (8.4-10.2); Carbon Dioxide 22 mmol/L (22-29); Chloride 113 mmol/L (96-108); Creatinine Clr Calc Pharmacy 25.8; Estimated Glomerular Filt Rate 19; Glucose Random 175 mg/dL (60-115); Sodium 144 mmol/L (135-145)
[2023-04-15] MEDS: Lidocaine 4 % Patch ADH..PATCH 1 PATCH TRANSDERMA (09:06)
[2023-04-15] MEDS: 0.9 % Sodium Chloride Flush 3 ML SYRINGE IVFLUSH ×3 (09:07→14:54)
[2023-04-15 11:27] VITALS: BP 109/63; PULSE 97; RESP 20; TEMP 36.4; O2SAT 94
[2023-04-15 11:34] VITALS: BP 109/63; PULSE 97; O2SAT 94
--- NOTE | 2023-04-15 13:07 | PM.DS ---
DS: Providers Provider Date of Service: 04/15/23 Date of admission: 04/11/23 11:54 Primary care physician: Erasmo Morrison MD DS: Diagnosis Discharge Diagnosis (1) COVID-19: Status: Acute (2) Asthma with COPD with exacerbation: Status: Acute DS: Summary Hospital Course Hospital Course: admission hpi Chief Complaint: neck pain 62-year-old female with history of unspecified mood disorder, hypothyroidism hyperlipidemia, CKD stage 4, asthma/COPD overlap with recently diagnosed COVID-19 with symptoms starting on on 04/04 and positive test 04/09, presented to the ED last night for evaluation of bilateral neck pain and upper back pain. She states since 04/04, she has had symptoms of generalized weakness, dizziness, vomiting with dry heaves, subjective fevers with chills, and nonproductive cough. Has not taken temperature. No abdominal pain, diarrhea, sore throat, shortness of breath, palpitations, chest pain. She lives at home with her and son all who have COVID 19. She was initially seen in the ED on 04/09 for these symptoms with equivocal chest x-ray and was discharged home with 250 mg b.i.d. cefuroxime and cyclobenzaprine and oxycodone. THere was also question of UTI, but UC was contaminated. Returned last night due to ongoing symptoms. She was due to be discharged early this morning but on ambulation was noted to desaturate to 80% on room air and was placed on 2 L supplemental O2. On arrival, patient intermittently tachycardic to 104 but afebrile. Blood pressure stable. No hypoxia at rest. Labs on arrival without any significant leukocytosis or leukopenia. Renal function baseline. Mild hypernatremia of 149, chloride 121, CO2 18. Lactic acid 0.8. Troponin 4.6, BNP undetectable. D-dimer below detectable limits. Urinalysis again with 2+ leukocytes, 1+ blood, positive urinary sediment, negative bacteria. CXR negative. CT soft tissue of the neck without any evidence of soft tissue mass but shows mild paranasal sinus disease. Chest CT ordered showing mild, scattered patchy opacities within the dependent right lung base with a few air bronchograms which could represent atelectasis versus early infiltrates. No ground-glass opacities or mass. In ED, given 1 g IV ceftriaxone, 500 mg IV azithromycin, 10 mg cyclobenzaprine, 6 mg dexamethasone, 5 mg oxycodone. hospital course: # Acute exacerbation of asthma/COPD overlap with hypoxia, worse with activity, probably related to recent covid and PNA. Pneumonia was treated wth IV ceftriaxone, and will be transitioned ot oral Ceftin for total of 7 days, afebrile, breathing comfortable. Ashtma /copd exacerbation was treated with oxygen due to inital hypoxia, iv steroid and breathing treatment, she has made good recovery and is presently off O2 and saturating about 94 on room air. Her covid 19 with initial onset of symptoms on 04/04, and testing positive on 04/09 and thus there was no indication for antiviral but treated with steroid as stated. # acute hypernatremia, likely from dehydration, and poor po intake, ultimately was given ivf with improvementand most recent sodium 14 # CKD stage 4 -renal function baseline #Mood disorder -continue lamictal # hypothyroidism -continue Synthroid #Hyperglycemia, likely from steroid, A1C = 5.1 Dispo: to Short term rehab for less than 30 days Time Attestation Discharge coordination time: Greater than 30 minutes Quality: Safe Use of Opioids Does Pt have an Active Cancer Diagnosis on the Problem List?: No Quality: Stroke Does the patient have a stroke diagnosis?: No Physical Exam Vital Signs: Vital Signs: Last Vital Signs Temp 97.6 F 04/15/23 11:27 Pulse 97 04/15/23 11:34 Resp 20 04/15/23 11:27 BP 109/63 04/15/23 11:34 Pulse Ox 94 04/15/23 11:34 O2 Del Method Room Air 04/15/23 11:27 O2 Flow Rate 1 04/13/23 15:19 BMI result Body Mass Index 36.7 DS: Data Data Completed and Pending Labs on day of discharge: Laboratory Results - last 24 hr 04/11/23 04/14/23 04/15/23 15:27 17:30 07:20 Sodium 144 144 Potassium 4.5 5.0 Chloride 112 H 113 H Carbon Dioxide 21 L 22 Anion Gap 16 14 BUN 43 H 42 H Creatinine 2.64 H 2.52 H Estim Creat Clear Calc 24.7 25.8 Estimated GFR 18 19 Random Glucose 228 H 175 H Calcium 9.1 D 9.4 Ur L.pneumophila Ag Not Detected Ur Strep pneumoniae Ag Not Detected Preliminary micro results at discharge 04/11/23 08:00 Blood Culture - Preliminary Blood - Venous No growth after 48 hours. 04/11/23 08:00 Blood Culture - Preliminary Blood - Venous No growth after 48 hours. Discharge Plan Discharge Anticipated Discharge Date/Time: 04/15/23 12:54 Patient Disposition: Xfer SNF Discharge Diagnosis: Acute hypoxic respiratory failure due to covid 19, asthma exacerbation Referrals: Erasmo Morrison MD [Primary Care Provider] - Discharge Medications: New cyclobenzaprine 10 mg tablet 10 mg PO BEDTIME PRN (Reason: muscle spasm) Qty: 10 0RF cefuroxime axetil 500 mg tablet 500 mg PO BID 3 Days Qty: 6 0RF prednisone 20 mg tablet 20 mg PO DAILY Qty: 2 0RF Continued albuterol sulfate 90 mcg/actuation HFA aerosol inhaler 2 puff inhalation Q4-6H PRN (Reason: shortness of breath or wheezing) Qty: 8.5 0RF lamotrigine 150 mg tablet 150 mg PO DAILY atorvastatin 10 mg tablet 10 mg PO DAILY clozapine 100 mg tablet 150 mg PO BEDTIME prochlorperazine maleate 10 mg tablet 10 mg PO TID PRN (Reason: Nausea And Vomiting) levothyroxine 88 mcg tablet 88 mcg PO DAILY@0600 pantoprazole 40 mg tablet,delayed release (DR/EC) 40 mg PO DAILY@1700 calcitriol 0.25 mcg capsule 0.25 mcg PO DAILY cholecalciferol (vitamin D3) [Vitamin D3] 50 mcg (2,000 unit) Tablet 100 mcg PO DAILY Discharge Orders: Discharge Order (Routine); Ordered 04/15/23 Ordered By: Mark Anthony Mercado Diet: Advance to usual diet Activity on Discharge: As tolerated Stand Alone Forms: Patient Portal Discharge page Care Plan Goals: full recovery from respiratory falure, pneumonia, and asthma exacerbation, and full recovery from covid Health Concerns: pneumonia covid asthma exacerbation take Cefuroxime as recommended for pneumonia take Prednisone for 2 more days for asthma exacerbation to short term rehab for quicker recovery encourage drink enough water to prevent dehydration, at least 8 cups a day follow up with pcp within a week Plan of Treatment: as above Assessment: see above Patient Instructions: COVID-19 (Coronavirus Disease 2019) (ED)
--- NOTE | 2023-04-15 13:39 | MHC.CM.PN ---
Pt medically cleared for DC, she will go to [facility] via ambulance this afternoon. Pt was informed, but is forgetful. is currently a pt in [facility] ED, he is aware of STR placement for pt. CM called Pt son, , , to inform him.
[2023-04-15 15:08] VITALS: BP 128/60; PULSE 92; RESP 17; TEMP 36.4; O2SAT 92
== END 2023-04-15 17:52 | disposition skilled nursing facility (03) | DRG 193 ==
LOC: HO.ED 04-11 07:12 → HO.EDOVER 04-11 12:03 → HO.IMC 04-11 15:09
PROVIDERS: Emergency Medicine; Admitting Provider Physician Assistant; Emergency Provider Emergency Medicine Emergency Medical Services; PCP Internal Medicine; Visit Provider Internal Medicine
DX: J15.9 Unspecified bacterial pneumonia (principal); J96.01 Acute respiratory failure with hypoxia; U07.1 COVID-19; J44.0 Chronic obstructive pulmonary disease with (acute) lower respiratory infection; J44.1 Chronic obstructive pulmonary disease with (acute) exacerbation; N18.4 Chronic kidney disease, stage 4 (severe); J45.901 Unspecified asthma with (acute) exacerbation; E87.0 Hyperosmolality and hypernatremia; E86.0 Dehydration; R73.9 Hyperglycemia, unspecified; F39 Unspecified mood [affective] disorder; E78.5 Hyperlipidemia, unspecified; E03.9 Hypothyroidism, unspecified; Z79.890 Hormone replacement therapy; Z79.899 Other long term (current) drug therapy
CPT/HCPCS: 0241U; 36415; 70360; 70490; 71045; 71046; 71250; 80048; 80053; 80076; 81001; 83036; 83605; 83690; 83880; 84484; 85025; 85379; 85610; 85730; 87040; 87086; 87449; 87899; 93005; 94640; 97116; 97162; 99285; J0456; J0696; J1100; J1644; J2405; J2920

== ENCOUNTER → 2023-04-10 21:43 | Outpatient (BNV) | payer MEDICARE, MEDICAID, SELFPAY | PROVIDERS: Admitting Provider Physician Assistant; Emergency Provider Emergency Medicine Emergency Medical Services; PCP Internal Medicine; Visit Provider Internal Medicine | DX: M54.2 Cervicalgia (principal) | CPT/HCPCS: 93010 ==

== ENCOUNTER → 2023-04-11 11:54 | Outpatient (BNV) | payer MEDICARE, MEDICAID, SELFPAY | PROVIDERS: Admitting Provider Physician Assistant; Emergency Provider Emergency Medicine Emergency Medical Services; PCP Internal Medicine; Visit Provider Internal Medicine | DX: U07.1 COVID-19 (principal); J44.1 Chronic obstructive pulmonary disease with (acute) exacerbation; J45.901 Unspecified asthma with (acute) exacerbation | CPT/HCPCS: 99223; 99232; 99239 ==

== ENCOUNTER 2023-05-17 15:56 | Outpatient (REF) | payer MEDICARE, MEDICAID, SELFPAY ==
[2023-05-17 16:28] LABS: MANUAL DIFF FLAG NO
[2023-05-17 18:02] LABS: Appearance Urine Cloudy; Color Urine Yellow; Glucose Urine UA Negative (Negative); Leukocyte Esterase Urine Moderate (2+) (Negative); Nitrite Urine Negative (Negative); Specific Gravity - Urine <= 1.005 (1.005-1.025); UMIC TRIGGER UA YES; Urine Blood Negative (Negative); Urine Ketones Negative (Negative); Urine Protein Negative (Neg-Trace)
[2023-05-17 18:06] LABS: Bacteria Urine 1+ (None Seen); Hyaline Casts Urine 0-2 /LPF (0-2); RBC Urine 0-2 /HPF (0-2); Squamous Epithelial Cell Urine >20 /HPF (0-2); WBC Urine 21-50 /HPF (0-5)
[2023-05-17 18:07] LABS: Basophils Percent Auto 0.5 % (0-2); Hematocrit 36.9 % (37.0-47.0); Hemoglobin 11.4 g/dl (12.0-16.0); Imm Gran Abs Auto 0.07 X10*3/uL (0.00-0.03); Imm Gran Pct Auto 0.9 % (0.0-0.4); Lymphocytes Absolute Auto 1.4 X10*3/uL (1.2-4.9); Lymphocytes Percent Auto 18.2 % (20-40); Mean Corpuscular HGB Conc 30.9 g/dl (31.0-35.0); Mean Corpuscular Hemoglobin 31.3 pg (27.0-33.0); Mean Corpuscular Volume 101.4 fL (80.0-98.0); Mean Platelet Volume 11.3 fL (9.4-12.3); Monocytes Absolute Auto 0.6 X10*3/uL (0.1-1.2); Monocytes Percent Auto 7.3 % (2-11); Neutrophils Absolute Auto 5.7 x10*3/uL (2.0-8.3); Neutrophils Percent Auto 73.1 % (45-73); Platelet Count 187 X10*3/uL (160-400); Red Blood Count 3.64 X10*6/uL (4.20-5.50); Red Cell Distribution Width 14.5 % (11.0-16.0); White Blood Count 7.8 X10*3/uL (4.8-10.8)
[2023-05-17 18:23] LABS: Albumin Level 3.8 g/dL (3.5-5.0); Calcium 9.5 mg/dL (8.4-10.2); Magnesium 1.9 mg/dL (1.6-2.6); Phosphorus 2.7 mg/dL (2.7-4.5)
[2023-05-17 18:26] LABS: Creatinine Urine 22.02 mg/dL; Microalbum/Creatinine Ratio Ur 40.8 ug/mg cr (<30); Total Protein Urine Random < 7 mg/dL (<12)
[2023-05-17 20:28] LABS: Anion Gap 15 (12-20)
[2023-05-17 20:30] LABS: Blood Urea Nitrogen 28 mg/dL (9-16); Carbon Dioxide 23 mmol/L (22-29); Chloride 110 mmol/L (96-108); Estimated Glomerular Filt Rate 16; Glucose Random 60 mg/dL (60-115); Sodium 144 mmol/L (135-145)
[2023-05-18 07:13] LABS: PTH Intact Intraoperative 169.3 pg/mL (8.7-77.1)
== END 2023-05-17 15:57 | disposition home or self-care (01) ==
LOC: HO.LAB 15:56
PROVIDERS: Absent Provider General Practice; PCP Internal Medicine; Visit Provider Internal Medicine Nephrology
DX: N25.0 Renal osteodystrophy (principal); N18.4 Chronic kidney disease, stage 4 (severe); Z79.899 Other long term (current) drug therapy
CPT/HCPCS: 36415; 80048; 81001; 82040; 82043; 82306; 82310; 82570; 83735; 83970; 84100; 84156; 85025

== ENCOUNTER 2023-06-14 17:26 | Emergency (ER) | payer MEDICARE, MEDICAID, SELFPAY ==
--- NOTE | ~2023-06-14 | CT_ITS ---
EXAMINATION: CT ABDOMEN AND PELVIS WITHOUT CONTRAST CLINICAL INFORMATION: Nausea, vomiting and constipation COMPARISON: Renal ultrasound 11/12/2015 TECHNIQUE: Multidetector volumetric imaging was performed from the superior aspect of the liver through the pubic symphysis. Sagittal and coronal reformatted images were obtained on the technologist's workstation. This CT examination was performed using dose optimization techniques as appropriate, variously including the following: *Automated exposure control *Adjustment of mA and/or kV according to patient size (this includes techniques or standardized protocols for targeted exams where dose is matched to indication/reason for exam; i.e. extremities or head) *Use of iterative reconstruction technique DLP: 832 mGy-cm FINDINGS: LUNG BASES: The visualized lung bases are unremarkable. LIVER, GALLBLADDER, AND BILIARY TREE: The liver is minimally enlarged at 17.4 cm in cephalocaudad dimension. Shape and attenuation are normal. No focal hepatic lesion or biliary ductal dilatation is present. Some subtle layering high density is seen in the gallbladder. The gallbladder is otherwise unremarkable with no evidence of calcified gallstones, gallbladder wall thickening, or obvious pericholecystic inflammatory changes. PANCREAS: There is fatty infiltration of predominantly the head and neck of the pancreas. No pancreatic masses or evidence of pancreatitis seen. SPLEEN: Unremarkable. ADRENAL GLANDS: Unremarkable. KIDNEYS AND URETERS: The kidneys are normal in size, shape, and attenuation. Multiple benign Bosniak class I and Bosniak class II renal cysts are noted, the largest measuring 4.7 cm on the left which require no additional imaging or follow-up. Similar findings were seen on the 2016 renal ultrasound. No solid renal masses are seen. No hydronephrosis, hydroureter, or calculi seen. No perinephric stranding. BLADDER: Unremarkable. GASTROINTESTINAL TRACT: The small and large bowel are unremarkable. The appendix is unremarkable. ABDOMINAL WALL: No significant hernia is appreciated. LYMPH NODES: No retroperitoneal lymphadenopathy VASCULAR: Unremarkable. PELVIC VISCERA: The uterus and adnexa are unremarkable. OSSEOUS STRUCTURES: Unremarkable. CT/CT abdomen pelvis wo IV con IMPRESSION: 1. A cause for the patient's nausea, vomiting and constipation has not been found. 2. Incidental note made of minimal hepatomegaly, fatty infiltration of the pancreas and benign Bosniak class I and Bosniak class II renal cysts which require no additional imaging or follow-up. Fleischner guidelines were followed.
[2023-06-14 18:18] VITALS: BP 148/77; PULSE 98; RESP 18; TEMP 35.7; O2SAT 96; BMI 36.3
--- NOTE | 2023-06-14 18:18 | ED.ABDPAIN ---
HPI - Abdominal Pain General Chief Complaint: Abdominal Pain Stated Complaint: constipated Time Seen by Provider: 06/14/23 20:11 Source: patient and family Mode of arrival: ambulatory Limitations: no limitations History of Present Illness HPI narrative: 62-year-old female presenting to the ER with complaints of constipation for the past week. Reports that she has been taking magnesium citrate and no symptomatic relief. Called her PCP and was sent here for further evaluation treatment. Has a history of chronic constipation. She reports that she did have small wade a bowel movement yesterday although has not had any today. She is still passing gas. She endorses nausea and vomiting. Denies any other symptoms complaints or concerns. Reports she had a years ago otherwise no other abdominal surgery and never had a small bowel obstruction. MD elicited complaint: abdominal pain Pertinent past history: constipation Onset (ago): week(s) (1) Pain Consistency: constant Location: diffuse Severity: moderate Quality: cramping Radiation: none Migration to: no migration Exacerbating factors: bowel movement Relieving factors: nothing Associated symptoms: denies other symptoms Related Data Home Medications Medication Instructions Recorded Confirmed atorvastatin 10 mg tablet 10 mg PO DAILY 04/11/23 04/11/23 calcitriol 0.25 mcg capsule 0.25 mcg PO DAILY 04/11/23 04/11/23 cholecalciferol (vitamin D3) 50 100 mcg PO DAILY 04/11/23 04/11/23 mcg (2,000 unit) tablet (Vitamin D3) clozapine 100 mg tablet 150 mg PO BEDTIME 04/11/23 04/11/23 lamotrigine 150 mg tablet 150 mg PO DAILY 04/11/23 04/11/23 levothyroxine 88 mcg tablet 88 mcg PO DAILY@0600 04/11/23 04/11/23 pantoprazole 40 mg tablet,delayed 40 mg PO DAILY@1700 04/11/23 04/11/23 release prochlorperazine maleate 10 mg 10 mg PO TID PRN Nausea And 04/11/23 04/11/23 tablet Vomiting Previous Rx's Medication Instructions Recorded albuterol sulfate 90 mcg/actuation 2 puff inhalation Q4-6H PRN 04/10/23 aerosol inhaler shortness of breath or wheezing #8.5 grams cyclobenzaprine 10 mg tablet 10 mg PO BEDTIME PRN muscle spasm 04/11/23 #10 tabs cefuroxime axetil 500 mg tablet 500 mg PO BID 3 days #6 tabs 04/15/23 prednisone 20 mg tablet 20 mg PO DAILY #2 tabs 04/15/23 peg 3350-electrolytes 236 240 ml PO Q10M constipation #4,000 06/14/23 gram-22.74 gram-6.74 gram-5.86 mL gram solution (Golytely) sodium phosphates 19 gram-7 118 ml LA BEDTIME PRN constipation 06/14/23 gram/118 mL enema (Fleet Enema) #532 mL Allergies Allergy/AdvReac Type Severity Reaction Status Date / Time guaifenesin [From ROBITUSSIN] AdvReac Unknown NAUSEA Verified 06/14/23 18:17 Review of Systems Review of Systems Constitutional : No Fever, No Chills, No Night Sweats, No Fatigue, No Malaise Cardiovascular : No Chest Pain, No SOB Respiratory : No Cough, No Sputum, No Wheezing, No Dyspnea Gastrointestinal : No Nausea, No Vomiting, No Diarrhea, + abdominal Pain, + constipation, No Hematochezia, No Melena Genitourinary : No irregular bleeding, No Dysuria, No Urinary Frequency, No Hematuria,No Urinary Incontinence, No Urgency, No Flank Pain Musculoskeletal : No joint pain, No Myalgias, No Joint Swelling Skin : No Skin Lesions, No rash Neuro : No Weakness, No Numbness, No Paresthesias, No Loss of Consciousness, No Dizziness, No Headache Heme/Lymph: No Lymphadenopathy Endocrine : No Temperature Intolerance Yes all other systems are reviewed and are negative [facility] Past Medical History Attestation statement: The following information was validated with the patient. Source: old records reviewed, obtained from family and nursing notes reviewed Medical History CKD (chronic kidney disease), stage IV Hyperlipidemia Asthma-COPD overlap syndrome Mood disorder Hypothyroidism Social History Social History Alcohol intake: never Advance Directives: Yes Advance Directives on File: Yes Advance Directives Date on File: 04/19/23 service: No Physical Exam ED Vital Signs: Vital Signs - 24 hr 06/14/23 18:18 06/14/23 20:03 Temperature 96.2 F L 97.9 F Pulse Rate 98 101 H Respiratory Rate 18 18 Blood Pressure 148/77 H 157/90 H Pulse Oximetry 96 96 Oxygen Delivery Method Room Air Room Air BMI result Body Mass Index 36.3 Vital signs have been reviewed and all within normal limits Appearance: Alert. Oriented X3. No acute distress. Head: Normal external exam. Normocephalic. Eyes: PERRLA. EOMI. Conjunctiva and sclera normal. Eyelids normal. ENT: Pharynx normal. Uvula midline. Moist mucous membranes. No trismus noted. No drooling noted. No muffled voice noted. Neck: Normal inspection. Neck supple. FROM. No adenopathy. No meningeal signs. CVS: Normal heart rate and rhythm. Heart sound normal. No murmurs noted. Pulses normal throughout. Respiratory: No respiratory distress. Painless inspiration. Breath sounds normal. No wheezes/rales/rhonchi noted. Chest nontender. No accessory muscle usage noted or decreased air movement noted. Abdomen: Soft and mild TTP. No guarding. No rigidity. Bowel sounds normal in all 4 quadrants. No distention noted. No organomegaly noted. No visible injury noted. No rebound tenderness. Negative Rovsing sign. Negative obturator's sign. Negative psoas sign. Negative Masters sign. Back: No CVA tenderness. Full range of motion noted. Skin: Skin warm and dry. Normal skin color. Normal skin turgor. No rashes/lesions/lacerations noted. Extremities: Extremities exhibit normal range of motion. Extremities nontender. Neuro: Oriented X 3. No motor deficit. No sensory deficit. Reflexes normal. Normal steady gait. CN's II-XII intact bilaterally? Course Course Course Narrative: SEBASE-18:18PM - 62-year-old female presenting to the ER with complaints of constipation for the past week. Reports that she has been taking magnesium citrate and no symptomatic relief. Called her PCP and was sent here for further evaluation treatment. Has a history of chronic constipation. She reports that she did have small wade a bowel movement yesterday although has not had any today. She is still passing gas. She endorses nausea and vomiting. Denies any other symptoms complaints or concerns. Reports she had a years ago otherwise no other abdominal surgery and never had a small bowel obstruction. H&P not consistent with obstruction, appendicitis, perforation or any other acute emergent situations. Patient most likely constipation Plan: Labs ordered at this time patient will be sent back to the waiting room to be evaluated in the ED. Reevaluation(s) Reevaluation #1: Labs reviewed and patient's CKD mildly worse today when compared to a month ago. Otherwise all other labs are within normal limits. CT scan abdomen pelvis with IV contrast revealed chronic renal stones and some hepatomegaly otherwise no other acute processes. I did review the imaging patient did have scattered stools throughout no bowel obstruction. Patient did not want to wait any longer wanted to be discharged was asking for prescription for an enema to go home. Therefore I sent her a prescription for enema and GoLYTELY as she reports Colace and MiraLax and magnesium citrate was not working. Along with instructions to follow up with PCP for repeat kidney function levels and to return if any new or worsening symptoms. Patient at bedside understand agree this plan. Time: 20:15 Medical Decision Making Medical Decision Making MDM Narrative: see course Differential Diagnosis Differential Diagnoses: The differential diagnosis associated with the presentation includes see course Lab Data MDM Lab Attestation statement: I reviewed the patient's lab results. 06/14/23 18:49 06/14/23 18:49 Labs: Lab Results 06/14/23 Range/Units 18:49 WBC 7.5 (4.8-10.8) X10*3/uL RBC 4.14 L (4.20-5.50) X10*6/uL Hgb 13.0 (12.0-16.0) g/dl Hct 41.3 (37.0-47.0) % MCV 99.8 H (80.0-98.0) fL MCH 31.4 (27.0-33.0) pg MCHC 31.5 (31.0-35.0) g/dl RDW 13.4 (11.0-16.0) % Plt Count 169 (160-400) X10*3/uL MPV 11.0 (9.4-12.3) fL Immature Gran % (Auto) 0.3 (0.0-0.4) % Neut % (Auto) 69.7 (45-73) % Lymph % (Auto) 22.0 (20-40) % [place] % (Auto) 7.1 (2-11) % Eos % (Auto) 0.0 (0-4) % Baso % (Auto) 0.9 (0-2) % Lymph # (Auto) 1.6 (1.2-4.9) X10*3/uL [place] # (Auto) 0.5 (0.1-1.2) X10*3/uL Eos # (Auto) 0.0 (0.0-0.4) X10*3/uL Baso # (Auto) 0.1 (0.0-0.2) X10*3/uL Abs Immat Gran (auto) 0.02 (0.00-0.03) X10*3/uL Absolute Neuts (auto) 5.2 (2.0-8.3) x10*3/uL Absolute Nucleated RBC 0.000 (0.0-0.012) X10*3/uL Nucleated RBC % (auto) 0.0 (0.0-0.2) /100WBC Smear Tech's Comments VERIFIED Sodium 144 (135-145) mmol/L Potassium 4.3 (3.3-5.1) mmol/L Chloride 109 H (96-108) mmol/L Carbon Dioxide 28 (22-29) mmol/L Anion Gap 11 L (12-20) BUN 34 H (9-16) mg/dL Creatinine 3.20 H (0.5-1.4) mg/dL Estim Creat Clear Calc 20.2 Estimated GFR 15 Random Glucose 85 (60-115) mg/dL Calcium 10.5 H D (8.4-10.2) mg/dL Magnesium 2.3 (1.6-2.6) mg/dL Total Bilirubin 0.3 (0.0-1.0) mg/dL Direct Bilirubin 0.1 (0.0-0.5) mg/dL AST 14 (5-31) U/L ALT 10 (0-31) U/L Alkaline Phosphatase 81 (39-117) U/L Total Protein 6.8 (6.5-8.0) g/dL Albumin 4.2 (3.5-5.0) g/dL Lipase 14 (8-78) U/L TSH 1.24 (0.32-4.0) uIU/mL Independent Interpretation I performed an independent interpretation of an: CT Scan (CT scan reviewed by my self I agree with the radiology report no acute findings only chronic changes) Radiology Impression Discussion of test interpretation with radiology: I have reviewed the radiologist's reading. Radiologist Impression: [address] [address] [address] Scan Report Signed Patient: Petrona Patterson MR#: [id number] : 1960 Acct:[id number] Age/Sex: 62 / F ADM Date: 06/14/23 Loc: HO.ED Attending Dr: Ordering Physician: Elda Mendez Date of Service: 06/14/23 Procedure(s): CT abdomen pelvis wo IV con Accession Number(s): [id number] cc: MADDIE MORRISON MD; Elda Mendez~ EXAMINATION: CT ABDOMEN AND PELVIS WITHOUT CONTRAST CLINICAL INFORMATION: Nausea, vomiting and constipation COMPARISON: Renal ultrasound 11/12/2015 TECHNIQUE: Multidetector volumetric imaging was performed from the superior aspect of the liver through the pubic symphysis. Sagittal and coronal reformatted images were obtained on the technologist's workstation. This CT examination was performed using dose optimization techniques as appropriate, variously including the following: *Automated exposure control *Adjustment of mA and/or kV according to patient size (this includes techniques or standardized protocols for targeted exams where dose is matched to indication/reason for exam; i.e. extremities or head) *Use of iterative reconstruction technique DLP: 832 mGy-cm FINDINGS: LUNG BASES: The visualized lung bases are unremarkable. LIVER, GALLBLADDER, AND BILIARY TREE: The liver is minimally enlarged at 17.4 cm in cephalocaudad dimension. Shape and attenuation are normal. No focal hepatic lesion or biliary ductal dilatation is present. Some subtle layering high density is seen in the gallbladder. The gallbladder is otherwise unremarkable with no evidence of calcified gallstones, gallbladder wall thickening, or obvious pericholecystic inflammatory changes. PANCREAS: There is fatty infiltration of predominantly the head and neck of the pancreas. No pancreatic masses or evidence of pancreatitis seen. SPLEEN: Unremarkable. ADRENAL GLANDS: Unremarkable. KIDNEYS AND URETERS: The kidneys are normal in size, shape, and attenuation. Multiple benign Bosniak class I and Bosniak class II renal cysts are noted, the largest measuring 4.7 cm on the left which require no additional imaging or follow-up. Similar findings were seen on the 2016 renal ultrasound. No solid renal masses are seen. No hydronephrosis, hydroureter, or calculi seen. No perinephric stranding. BLADDER: Unremarkable. GASTROINTESTINAL TRACT: The small and large bowel are unremarkable. The appendix is unremarkable. ABDOMINAL WALL: No significant hernia is appreciated. LYMPH NODES: No retroperitoneal lymphadenopathy VASCULAR: Unremarkable. PELVIC VISCERA: The uterus and adnexa are unremarkable. OSSEOUS STRUCTURES: Unremarkable. CT/CT abdomen pelvis wo IV con IMPRESSION: 1. A cause for the patient's nausea, vomiting and constipation has not been found. 2. Incidental note made of minimal hepatomegaly, fatty infiltration of the pancreas and benign Bosniak class I and Bosniak class II renal cysts which require no additional imaging or follow-up. Fleischner guidelines were followed. Independent Historian Clinical information obtained from an independent historian. History obtained from or confirmed by: Spouse External Record Review External record reviewed: Inpatient record, Office record, Outpatient record, Prior outpatient labs, Prior outpatient radiology, Primary care record and Outside ED record All prior labs/imaging/EKG and notes that are accessible on our system reviewed by myself Social Determinants Patient?s care significantly limited by Social Determinants of Health including: Other Social Determinant of Health Discharge Plan Discharge Clinical Impression: Constipation, Renal cyst, Hepatomegaly Patient Disposition: Home, Self-Care Instructions: Constipation (ED), Kidney Cyst (ED), Fleet Enema (ED) Prescriptions: New peg 3350-electrolytes [Golytely] 236-22.74-6.74 -5.86 gram recon soln 240 ml PO Q10M Qty: 4000 0RF Rx Instructions: until fecal effluent is clear Fleet Enema 19-7 gram/118 mL enema 118 ml LA BEDTIME PRN (Reason: constipation) Qty: 532 0RF No Action albuterol sulfate 90 mcg/actuation HFA aerosol inhaler 2 puff inhalation Q4-6H PRN (Reason: shortness of breath or wheezing) Qty: 8.5 0RF cyclobenzaprine 10 mg tablet 10 mg PO BEDTIME PRN (Reason: muscle spasm) Qty: 10 0RF lamotrigine 150 mg tablet 150 mg PO DAILY atorvastatin 10 mg tablet 10 mg PO DAILY clozapine 100 mg tablet 150 mg PO BEDTIME prochlorperazine maleate 10 mg tablet 10 mg PO TID PRN (Reason: Nausea And Vomiting) levothyroxine 88 mcg tablet 88 mcg PO DAILY@0600 pantoprazole 40 mg tablet,delayed release (DR/EC) 40 mg PO DAILY@1700 calcitriol 0.25 mcg capsule 0.25 mcg PO DAILY cholecalciferol (vitamin D3) [Vitamin D3] 50 mcg (2,000 unit) Tablet 100 mcg PO DAILY cefuroxime axetil 500 mg tablet 500 mg PO BID 3 Days Qty: 6 0RF prednisone 20 mg tablet 20 mg PO DAILY Qty: 2 0RF Referrals: Maddie Morrison MD [Primary Care Provider] - 1 day (For repeat kidney function as your kidney function was mildly elevated today when compared to priors from last month) Interventions: ED Discharge Assessment Last Done: 06/14/23 20:15 Discharge Date/Time: 06/14/23 20:17
[2023-06-14 18:56] LABS: Imm Gran Abs Auto 0.02 X10*3/uL (0.00-0.03); Imm Gran Pct Auto 0.3 % (0.0-0.4); MANUAL DIFF FLAG SCAN; PLT CLUMP 1; Red Cell Distribution Width 13.4 % (11.0-16.0); SCAN SMEAR FLAG 1
[2023-06-14 18:58] LABS: Basophils Absolute Auto 0.1 X10*3/uL (0.0-0.2); Basophils Percent Auto 0.9 % (0-2); Hematocrit 41.3 % (37.0-47.0); Lymphocytes Absolute Auto 1.6 X10*3/uL (1.2-4.9); Mean Corpuscular HGB Conc 31.5 g/dl (31.0-35.0); Mean Corpuscular Hemoglobin 31.4 pg (27.0-33.0); Mean Corpuscular Volume 99.8 fL (80.0-98.0); Monocytes Absolute Auto 0.5 X10*3/uL (0.1-1.2); Monocytes Percent Auto 7.1 % (2-11); Neutrophils Absolute Auto 5.2 x10*3/uL (2.0-8.3); Neutrophils Percent Auto 69.7 % (45-73); Red Blood Count 4.14 X10*6/uL (4.20-5.50)
[2023-06-14 19:13] LABS: Alanine Aminotransferase 10 U/L (0-31); Albumin Level 4.2 g/dL (3.5-5.0); Alkaline Phosphatase 81 U/L (39-117); Anion Gap 11 (12-20); Aspartate Amino Transferase 14 U/L (5-31); Bilirubin Direct 0.1 mg/dL (0.0-0.5); Bilirubin Total 0.3 mg/dL (0.0-1.0); Blood Urea Nitrogen 34 mg/dL (9-16); Calcium 10.5 mg/dL (8.4-10.2); Carbon Dioxide 28 mmol/L (22-29); Chloride 109 mmol/L (96-108); Creatinine Clr Calc Pharmacy 20.2; Estimated Glomerular Filt Rate 15; Glucose Random 85 mg/dL (60-115); Lipase 14 U/L (8-78); Magnesium 2.3 mg/dL (1.6-2.6); Potassium 4.3 mmol/L (3.3-5.1); Sodium 144 mmol/L (135-145); Total Protein 6.8 g/dL (6.5-8.0)
[2023-06-14 19:16] LABS: Platelet Count 169 X10*3/uL (160-400); White Blood Count 7.5 X10*3/uL (4.8-10.8)
[2023-06-14 19:17] LABS: SLIDE REVIEW VERIFIED
[2023-06-14 19:27] LABS: TSH reflex Free T4 1.24 uIU/mL (0.32-4.0)
[2023-06-14 20:03] VITALS: BP 157/90; PULSE 101; RESP 18; TEMP 36.6; O2SAT 96
== END 2023-06-14 20:17 | disposition home or self-care (01) ==
LOC: HO.ED 20:14
PROVIDERS: Physician Assistant Medical; Emergency Provider Emergency Medicine; PCP Internal Medicine
DX: K59.00 Constipation, unspecified (principal); R16.0 Hepatomegaly, not elsewhere classified; N28.1 Cyst of kidney, acquired; N18.4 Chronic kidney disease, stage 4 (severe)
CPT/HCPCS: 36415; 74176; 80053; 82248; 83690; 83735; 84443; 85025; 99282; 99283; 99284

== ENCOUNTER 2023-07-04 18:20 | Emergency (ER) | payer MEDICARE, MEDICAID, SELFPAY ==
[2023-07-04 18:24] VITALS: BP 131/76; PULSE 111; RESP 18; TEMP 36.2; O2SAT 99; BMI 35.4
[2023-07-04 18:42] LABS: MANUAL DIFF FLAG NO
[2023-07-04 18:43] LABS: Basophils Percent Auto 0.5 % (0-2); Hemoglobin 13.8 g/dl (12.0-16.0); Imm Gran Abs Auto 0.01 X10*3/uL (0.00-0.03); Imm Gran Pct Auto 0.2 % (0.0-0.4); Lymphocytes Percent Auto 16.8 % (20-40); Mean Corpuscular HGB Conc 31.4 g/dl (31.0-35.0); Mean Corpuscular Hemoglobin 31.5 pg (27.0-33.0); Mean Corpuscular Volume 100.5 fL (80.0-98.0); Monocytes Absolute Auto 0.4 X10*3/uL (0.1-1.2); Neutrophils Absolute Auto 4.5 x10*3/uL (2.0-8.3); Neutrophils Percent Auto 76.5 % (45-73); Platelet Count 165 X10*3/uL (160-400); Red Blood Count 4.38 X10*6/uL (4.20-5.50); Red Cell Distribution Width 13.2 % (11.0-16.0); White Blood Count 5.9 X10*3/uL (4.8-10.8)
[2023-07-04 19:17] LABS: Alanine Aminotransferase 12 U/L (0-31); Albumin Level 4.3 g/dL (3.5-5.0); Alkaline Phosphatase 89 U/L (39-117); Anion Gap 12 (12-20); Aspartate Amino Transferase 12 U/L (5-31); Bilirubin Total 0.3 mg/dL (0.0-1.0); Blood Urea Nitrogen 28 mg/dL (9-16); Calcium 10.5 mg/dL (8.4-10.2); Carbon Dioxide 26 mmol/L (22-29); Chloride 114 mmol/L (96-108); Creatinine Clr Calc Pharmacy 18.1; Estimated Glomerular Filt Rate 13; Glucose Random 139 mg/dL (60-115); Lipase 13 U/L (8-78); Sodium 148 mmol/L (135-145); Total Protein 6.9 g/dL (6.5-8.0)
[2023-07-04 22:22] VITALS: BP 129/77; PULSE 92; RESP 16; TEMP 36.6; O2SAT 98
--- NOTE | 2023-07-04 22:30 | ED_ITS ---
HPI - General Adult General Chief complaint: Abdominal Pain Stated complaint: Nausea Time Seen by Provider: 07/04/23 22:12 History of Present Illness HPI narrative: The patient is a 62-year-old female with a history of multiple psychiatric and medical problems. She has significant chronic kidney disease and renal impairment. She has a history of significant mood disorder in his on clozapine and lamotrigine. She also reports a history of chronic constipation and she takes fairly large doses of senna on a regular basis. The patient came to the emergency room 3 weeks ago complaining of constipation. She was prescribed GoLYTELY which she took at home. After several days she had a large bowel movement. This was about 10 days ago. She has not had a bowel movement since then and is concerned that she has now gone a long time without another bowel movement. The patient also has chronic intermittent nausea for which she takes prochlorperazine. No urinary discomfort or other urinary symptoms Related Data Home Medications Medication Instructions Recorded Confirmed atorvastatin 10 mg tablet 10 mg PO DAILY 04/11/23 04/11/23 calcitriol 0.25 mcg capsule 0.25 mcg PO DAILY 04/11/23 04/11/23 cholecalciferol (vitamin D3) 50 100 mcg PO DAILY 04/11/23 04/11/23 mcg (2,000 unit) tablet (Vitamin D3) clozapine 100 mg tablet 150 mg PO BEDTIME 04/11/23 04/11/23 lamotrigine 150 mg tablet 150 mg PO DAILY 04/11/23 04/11/23 levothyroxine 88 mcg tablet 88 mcg PO DAILY@0600 04/11/23 04/11/23 pantoprazole 40 mg tablet,delayed 40 mg PO DAILY@1700 04/11/23 04/11/23 release prochlorperazine maleate 10 mg 10 mg PO TID PRN Nausea And 04/11/23 04/11/23 tablet Vomiting Previous Rx's Medication Instructions Recorded albuterol sulfate 90 mcg/actuation 2 puff inhalation Q4-6H PRN 04/10/23 aerosol inhaler shortness of breath or wheezing #8.5 grams cyclobenzaprine 10 mg tablet 10 mg PO BEDTIME PRN muscle spasm 04/11/23 #10 tabs cefuroxime axetil 500 mg tablet 500 mg PO BID 3 days #6 tabs 04/15/23 prednisone 20 mg tablet 20 mg PO DAILY #2 tabs 04/15/23 peg 3350-electrolytes 236 240 ml PO Q10M constipation #4,000 06/14/23 gram-22.74 gram-6.74 gram-5.86 mL gram solution (Golytely) sodium phosphates 19 gram-7 118 ml TN BEDTIME PRN constipation 06/14/23 gram/118 mL enema (Fleet Enema) #532 mL Allergies Allergy/AdvReac Type Severity Reaction Status Date / Time guaifenesin [From ROBITUSSIN] AdvReac Unknown NAUSEA Verified 06/14/23 18:17 Review of Systems 2 Review of Systems: Yes all other systems are reviewed and are negative [facility] Past Medical History Medical History CKD (chronic kidney disease), stage IV Hyperlipidemia Asthma-COPD overlap syndrome Mood disorder Hypothyroidism Social History Social History Alcohol intake: never Smoked in Last 30 Days: No Use of substances other than those prescribed or required for medical reasons: No Advance Directives: Yes Advance Directives on File: Yes Advance Directives Date on File: 04/19/23 service: No Physical Exam ED Vital Signs: Vital Signs - 24 hr 07/04/23 18:24 07/04/23 22:22 07/04/23 23:57 Temperature 97.1 F 98 F 98.0 F Pulse Rate 111 H 92 102 H Respiratory Rate 18 16 17 Blood Pressure 131/76 129/77 103/58 L Pulse Oximetry 99 98 98 Oxygen Delivery Method Room Air Room Air Room Air 07/05/23 00:07 Temperature 98 F Pulse Rate 102 H Respiratory Rate 17 Blood Pressure 103/58 L Pulse Oximetry 98 Oxygen Delivery Method Room Air BMI result Body Mass Index 35.4 Const Other: The patient is a chronically ill-appearing 62-year-old who was awake and alert. She does not appear acutely ill. She is pleasant cooperative. HENMT Other: Face is symmetrical. Mucous membranes moist. Eyes Other: Pupils are round equal, conjunctivae clear Neck Other: No JVD Resp Effort & Inspection: normal respiratory effort Auscultation: clear to auscultation bilaterally Cardio Rate: regular rate Rhythm: regular rhythm Heart sounds: S1 normal heart sound present and S2 normal heart sound present GI Other: Soft and nontender. Rectal exam revealed an empty rectal vault. No impaction. Skin Other: Skin is pale and dry Neuro Other: The patient is awake, alert, appropriate, cognitively intact, grossly neurologically intact. Extrem Other: No peripheral edema Medications Administered Discontinued Medications Generic Name Dose Route Start Last Admin Trade Name Mirq PRN Reason Stop Dose Admin Sodium Biphosphate/Sodium Phosphate 133 ml 07/04/23 22:35 07/04/23 22:58 Sodium Phosphate,Thomas-Dibasic 133 Ml Enema TN 07/04/23 22:36 133 ml ONCE ONE Administration Medical Decision Making Medical Decision Making [facility] Narrative: The patient presents because of a sense of recurrent constipation. No bowel movement in several days. On rectal exam there was no fecal impaction. The patient was given a Fleet enema and had a bowel movement and felt better. She will be discharged with instructions to use 17 g of MiraLax in 8 oz of water every day for several weeks. Her renal function is essentially stable. She should follow up with her PCP and possibly her food equipment service technician. Lab Data 07/04/23 18:37 07/04/23 18:37 Labs: Lab Results 07/04/23 Range/Units 18:37 WBC 5.9 (4.8-10.8) X10*3/uL RBC 4.38 (4.20-5.50) X10*6/uL Hgb 13.8 (12.0-16.0) g/dl Hct 44.0 (37.0-47.0) % MCV 100.5 H (80.0-98.0) fL MCH 31.5 (27.0-33.0) pg MCHC 31.4 (31.0-35.0) g/dl RDW 13.2 (11.0-16.0) % Plt Count 165 (160-400) X10*3/uL MPV 11.0 (9.4-12.3) fL Immature Gran % (Auto) 0.2 (0.0-0.4) % Neut % (Auto) 76.5 H (45-73) % Lymph % (Auto) 16.8 L (20-40) % Thomas % (Auto) 6.0 (2-11) % Eos % (Auto) 0.0 (0-4) % Baso % (Auto) 0.5 (0-2) % Lymph # (Auto) 1.0 L (1.2-4.9) X10*3/uL Thomas # (Auto) 0.4 (0.1-1.2) X10*3/uL Eos # (Auto) 0.0 (0.0-0.4) X10*3/uL Baso # (Auto) 0.0 (0.0-0.2) X10*3/uL Abs Immat Gran (auto) 0.01 (0.00-0.03) X10*3/uL Absolute Neuts (auto) 4.5 (2.0-8.3) x10*3/uL Absolute Nucleated RBC 0.000 (0.0-0.012) X10*3/uL Nucleated RBC % (auto) 0.0 (0.0-0.2) /100WBC Sodium 148 H (135-145) mmol/L Potassium 4.0 (3.3-5.1) mmol/L Chloride 114 H (96-108) mmol/L Carbon Dioxide 26 (22-29) mmol/L Anion Gap 12 (12-20) BUN 28 H (9-16) mg/dL Creatinine 3.53 H (0.5-1.4) mg/dL Estim Creat Clear Calc 18.1 Estimated GFR 13 Random Glucose 139 H (60-115) mg/dL Calcium 10.5 H (8.4-10.2) mg/dL Total Bilirubin 0.3 (0.0-1.0) mg/dL AST 12 (5-31) U/L ALT 12 (0-31) U/L Alkaline Phosphatase 89 (39-117) U/L Total Protein 6.9 (6.5-8.0) g/dL Albumin 4.3 (3.5-5.0) g/dL Lipase 13 (8-78) U/L Discharge Plan Discharge Clinical Impression: Constipation, Chronic kidney disease Patient Disposition: Home, Self-Care Additional Instructions: I would recommend that you take 17 g of MiraLax in 8 oz glass of water every day for several weeks. My hope is that this would help your chronic constipation. I would do this for several weeks before deciding the MiraLax is not helpful. In the meantime please make a follow up appointment either with your regular doctor or with your food equipment service technician to discuss your bowel regimen further. Return to the emergency room if significantly worse. Prescriptions: No Action albuterol sulfate 90 mcg/actuation HFA aerosol inhaler 2 puff inhalation Q4-6H PRN (Reason: shortness of breath or wheezing) Qty: 8.5 0RF cyclobenzaprine 10 mg tablet 10 mg PO BEDTIME PRN (Reason: muscle spasm) Qty: 10 0RF lamotrigine 150 mg tablet 150 mg PO DAILY atorvastatin 10 mg tablet 10 mg PO DAILY clozapine 100 mg tablet 150 mg PO BEDTIME prochlorperazine maleate 10 mg tablet 10 mg PO TID PRN (Reason: Nausea And Vomiting) levothyroxine 88 mcg tablet 88 mcg PO DAILY@0600 pantoprazole 40 mg tablet,delayed release (DR/EC) 40 mg PO DAILY@1700 calcitriol 0.25 mcg capsule 0.25 mcg PO DAILY cholecalciferol (vitamin D3) [Vitamin D3] 50 mcg (2,000 unit) Tablet 100 mcg PO DAILY cefuroxime axetil 500 mg tablet 500 mg PO BID 3 Days Qty: 6 0RF prednisone 20 mg tablet 20 mg PO DAILY Qty: 2 0RF peg 3350-electrolytes [Golytely] 236-22.74-6.74 -5.86 gram recon soln 240 ml PO Q10M Qty: 4000 0RF Rx Instructions: until fecal effluent is clear Fleet Enema 19-7 gram/118 mL enema 118 ml TN BEDTIME PRN (Reason: constipation) Qty: 532 0RF Referrals: Peter Leon MD [Physician] - (Constipation, chronic kidney disease) Erasmo Morrison MD [Primary Care Provider] - (Constipation, chronic kidney disease) Interventions: ED Discharge Assessment Last Done: 07/05/23 00:07 Discharge Date/Time: 07/05/23 00:08
[2023-07-04] MEDS: Sodium Phosphate,Mono-Dibasic 133 ML ENEMA PR (22:58)
--- NOTE | 2023-07-04 22:58 | PC.NURSE ---
enema administered by Dr. Perez. this RN at bedside with as he also completed rectal exam. nad. pt close to bathroom. call novak within reach.
[2023-07-04 23:57] VITALS: BP 103/58; PULSE 102; RESP 17; TEMP 36.7; O2SAT 98
--- NOTE | 2023-07-05 00:04 | PC.NURSE ---
pt able to have BM. pt reports feeling better. nad. vss. Dr. Menchaca aware.
[2023-07-05 00:07] VITALS: BP 103/58; PULSE 102; RESP 17; TEMP 36.6; O2SAT 98
== END 2023-07-05 00:08 | disposition home or self-care (01) ==
PROVIDERS: Emergency Provider Emergency Medicine; PCP Internal Medicine
DX: K59.00 Constipation, unspecified (principal); N18.4 Chronic kidney disease, stage 4 (severe); R11.0 Nausea; F39 Unspecified mood [affective] disorder; Z79.899 Other long term (current) drug therapy
CPT/HCPCS: 36415; 80053; 83690; 85025; 99284

== ENCOUNTER 2023-07-12 16:29 | Outpatient (REF) | payer MEDICARE, MEDICAID, SELFPAY ==
[2023-07-12 16:40] LABS: MANUAL DIFF FLAG NO
[2023-07-12 18:01] LABS: Basophils Percent Auto 0.2 % (0-2); Hematocrit 42.3 % (37.0-47.0); Hemoglobin 13.1 g/dl (12.0-16.0); Imm Gran Abs Auto 0.02 X10*3/uL (0.00-0.03); Imm Gran Pct Auto 0.3 % (0.0-0.4); Lymphocytes Absolute Auto 1.5 X10*3/uL (1.2-4.9); Lymphocytes Percent Auto 26.2 % (20-40); Mean Platelet Volume 11.5 fL (9.4-12.3); Monocytes Absolute Auto 0.4 X10*3/uL (0.1-1.2); Monocytes Percent Auto 6.2 % (2-11); Neut%MD 67.1 %; Neutrophils Absolute Auto 3.9 x10*3/uL (2.0-8.3); Neutrophils Percent Auto 67.1 % (45-73); Platelet Count 174 X10*3/uL (160-400); Red Blood Count 4.23 X10*6/uL (4.20-5.50); Red Cell Distribution Width 13.1 % (11.0-16.0); WBCANC 5.8 X10*3/uL; White Blood Count 5.8 X10*3/uL (4.8-10.8)
== END 2023-07-12 16:30 | disposition home or self-care (01) ==
LOC: HO.LABR 16:29
PROVIDERS: PCP Internal Medicine; Visit Provider General Practice
DX: Z79.899 Other long term (current) drug therapy (principal)
CPT/HCPCS: 36415; 85025

== ENCOUNTER 2023-09-09 16:13 | Outpatient (REF) | payer MEDICARE, MEDICAID, SELFPAY ==
[2023-09-09 16:27] LABS: MANUAL DIFF FLAG NO
[2023-09-09 18:29] LABS: Basophils Percent Auto 0.4 % (0-2); Hematocrit 40.5 % (37.0-47.0); Hemoglobin 12.6 g/dl (12.0-16.0); Imm Gran Abs Auto 0.02 X10*3/uL (0.00-0.03); Imm Gran Pct Auto 0.3 % (0.0-0.4); Lymphocytes Absolute Auto 1.2 X10*3/uL (1.2-4.9); Mean Corpuscular HGB Conc 31.1 g/dl (31.0-35.0); Mean Corpuscular Hemoglobin 30.7 pg (27.0-33.0); Mean Corpuscular Volume 98.8 fL (80.0-98.0); Mean Platelet Volume 11.9 fL (9.4-12.3); Monocytes Absolute Auto 0.6 X10*3/uL (0.1-1.2); Monocytes Percent Auto 8.5 % (2-11); Neut%MD 73.8 %; Neutrophils Absolute Auto 5.3 x10*3/uL (2.0-8.3); Neutrophils Percent Auto 73.8 % (45-73); Platelet Count 162 X10*3/uL (160-400); Red Cell Distribution Width 13.3 % (11.0-16.0); WBCANC 7.2 X10*3/uL; White Blood Count 7.2 X10*3/uL (4.8-10.8)
== END 2023-09-09 16:14 | disposition home or self-care (01) ==
LOC: HO.LABR 16:13
PROVIDERS: PCP Internal Medicine; Visit Provider General Practice
DX: Z79.899 Other long term (current) drug therapy (principal)
CPT/HCPCS: 36415; 85025

== ENCOUNTER 2023-11-10 14:44 | Outpatient (REF) | payer MEDICARE, MEDICAID, SELFPAY ==
[2023-11-10 14:55] LABS: MANUAL DIFF FLAG NO
[2023-11-10 15:48] LABS: Basophils Percent Auto 0.4 % (0-2); Hematocrit 37.4 % (37.0-47.0); Hemoglobin 11.7 g/dl (12.0-16.0); Imm Gran Abs Auto 0.04 X10*3/uL (0.00-0.03); Imm Gran Pct Auto 0.5 % (0.0-0.4); Lymphocytes Absolute Auto 1.1 X10*3/uL (1.2-4.9); Lymphocytes Percent Auto 14.3 % (20-40); Mean Corpuscular HGB Conc 31.3 g/dl (31.0-35.0); Mean Corpuscular Hemoglobin 30.5 pg (27.0-33.0); Mean Corpuscular Volume 97.4 fL (80.0-98.0); Mean Platelet Volume 11.4 fL (9.4-12.3); Monocytes Absolute Auto 0.5 X10*3/uL (0.1-1.2); Monocytes Percent Auto 6.5 % (2-11); Neutrophils Absolute Auto 5.9 x10*3/uL (2.0-8.3); Neutrophils Percent Auto 78.3 % (45-73); Platelet Count 178 X10*3/uL (160-400); Red Blood Count 3.84 X10*6/uL (4.20-5.50); Red Cell Distribution Width 13.9 % (11.0-16.0); White Blood Count 7.5 X10*3/uL (4.8-10.8)
== END 2023-11-10 14:45 | disposition home or self-care (01) ==
LOC: HO.LAB 14:44
PROVIDERS: PCP Internal Medicine; Visit Provider General Practice
DX: Z79.899 Other long term (current) drug therapy (principal)
CPT/HCPCS: 36415; 85025

== ENCOUNTER 2023-12-09 16:44 | Outpatient (REF) | payer MEDICARE, MEDICAID, SELFPAY ==
[2023-12-09 17:25] LABS: Neut%MD 73.3 %; Neutrophils Absolute Auto 5.9 x10*3/uL (2.0-8.3); WBCANC 8.1 X10*3/uL
== END 2023-12-09 16:45 | disposition home or self-care (01) ==
LOC: HO.LABR 16:44
PROVIDERS: PCP Internal Medicine; Visit Provider General Practice
DX: Z79.899 Other long term (current) drug therapy (principal)
CPT/HCPCS: 36415; 85048

== ENCOUNTER 2024-02-07 15:08 | Outpatient (REF) | payer MEDICARE, MEDICAID, SELFPAY ==
[2024-02-07 15:20] LABS: MANUAL DIFF FLAG NO
[2024-02-07 16:18] LABS: Basophils Percent Auto 0.6 % (0-2); Hematocrit 37.3 % (37.0-47.0); Hemoglobin 11.1 g/dl (12.0-16.0); Imm Gran Abs Auto 0.03 X10*3/uL (0.00-0.03); Imm Gran Pct Auto 0.4 % (0.0-0.4); Lymphocytes Absolute Auto 1.1 X10*3/uL (1.2-4.9); Lymphocytes Percent Auto 15.7 % (20-40); Mean Corpuscular HGB Conc 29.8 g/dl (31.0-35.0); Mean Corpuscular Hemoglobin 29.7 pg (27.0-33.0); Mean Corpuscular Volume 99.7 fL (80.0-98.0); Mean Platelet Volume 10.8 fL (9.4-12.3); Monocytes Absolute Auto 0.5 X10*3/uL (0.1-1.2); Monocytes Percent Auto 6.6 % (2-11); Neutrophils Absolute Auto 5.6 x10*3/uL (2.0-8.3); Neutrophils Percent Auto 76.7 % (45-73); Platelet Count 206 X10*3/uL (160-400); Red Blood Count 3.74 X10*6/uL (4.20-5.50); Red Cell Distribution Width 14.7 % (11.0-16.0); White Blood Count 7.3 X10*3/uL (4.8-10.8)
== END 2024-02-07 15:09 | disposition home or self-care (01) ==
LOC: HO.LABR 15:08
PROVIDERS: PCP Internal Medicine; Visit Provider Psychiatry & Neurology Psychiatry
DX: Z79.899 Other long term (current) drug therapy (principal)
CPT/HCPCS: 36415; 85025

== ENCOUNTER 2024-02-22 16:22 | Outpatient (REF) | payer MEDICARE, MEDICAID, SELFPAY ==
[2024-02-22 16:55] LABS: MANUAL DIFF FLAG NO
[2024-02-22 17:07] LABS: Basophils Percent Auto 0.6 % (0-2); Hematocrit 36.9 % (37.0-47.0); Hemoglobin 10.8 g/dl (12.0-16.0); Imm Gran Abs Auto 0.04 X10*3/uL (0.00-0.03); Imm Gran Pct Auto 0.6 % (0.0-0.4); Mean Corpuscular HGB Conc 29.3 g/dl (31.0-35.0); Mean Corpuscular Hemoglobin 28.9 pg (27.0-33.0); Mean Corpuscular Volume 98.7 fL (80.0-98.0); Mean Platelet Volume 10.6 fL (9.4-12.3); Monocytes Absolute Auto 0.4 X10*3/uL (0.1-1.2); Monocytes Percent Auto 6.4 % (2-11); Neutrophils Absolute Auto 5.3 x10*3/uL (2.0-8.3); Neutrophils Percent Auto 77.4 % (45-73); Platelet Count 187 X10*3/uL (160-400); Red Blood Count 3.74 X10*6/uL (4.20-5.50); Red Cell Distribution Width 14.6 % (11.0-16.0); White Blood Count 6.9 X10*3/uL (4.8-10.8)
[2024-02-22 17:40] LABS: Parathyroid Hormone Intact 172.2 pg/mL (8.7-77.1)
[2024-02-22 17:45] LABS: Albumin Level 3.9 g/dL (3.5-5.0); Anion Gap 11 (12-20); Blood Urea Nitrogen 30 mg/dL (9-16); Calcium 9.7 mg/dL (8.4-10.2); Carbon Dioxide 25 mmol/L (22-29); Chloride 112 mmol/L (96-108); Estimated Glomerular Filt Rate 15; Magnesium 2.1 mg/dL (1.6-2.6); Potassium 4.6 mmol/L (3.3-5.1); Sodium 143 mmol/L (135-145)
[2024-02-22 18:03] LABS: Vitamin D 25-OH Total 41.3 ng/mL (>30)
== END 2024-02-22 16:23 | disposition home or self-care (01) ==
LOC: HO.LAB 16:22
PROVIDERS: PCP Internal Medicine; Visit Provider Internal Medicine Nephrology
DX: N18.4 Chronic kidney disease, stage 4 (severe) (principal); N25.0 Renal osteodystrophy
CPT/HCPCS: 36415; 80051; 82040; 82306; 82310; 82565; 83735; 83970; 84100; 84520; 85025

== ENCOUNTER 2024-02-23 14:36 | Outpatient (REF) | payer MEDICARE, MEDICAID, SELFPAY ==
[2024-02-23 15:09] LABS: Appearance Urine Clear; Color Urine Yellow; Glucose Urine UA Negative (Negative); Leukocyte Esterase Urine Negative (Negative); Nitrite Urine Negative (Negative); Specific Gravity - Urine <= 1.005 (1.005-1.025); Urine Blood Negative (Negative); Urine Ketones Negative (Negative); Urine Protein Negative (Neg-Trace)
[2024-02-23 15:55] LABS: Creatinine Urine 18.77 mg/dL; Microalbumin Urine < 5.0 mg/L; Total Protein Urine Random < 7 mg/dL (<12)
== END 2024-02-23 14:37 | disposition home or self-care (01) ==
LOC: HO.LNP 14:36
PROVIDERS: Visit Provider Internal Medicine Nephrology
DX: N18.4 Chronic kidney disease, stage 4 (severe) (principal)
CPT/HCPCS: 81003; 82043; 82570; 84156

== ENCOUNTER 2024-04-10 15:28 | Outpatient (REF) | payer MEDICARE, MEDICAID, SELFPAY ==
[2024-04-10 15:48] LABS: MANUAL DIFF FLAG NO
[2024-04-10 16:12] LABS: Basophils Absolute Auto 0.1 X10*3/uL (0.0-0.2); Basophils Percent Auto 0.7 % (0-2); Hematocrit 34.9 % (37.0-47.0); Hemoglobin 10.3 g/dl (12.0-16.0); Imm Gran Abs Auto 0.03 X10*3/uL (0.00-0.03); Imm Gran Pct Auto 0.4 % (0.0-0.4); Lymphocytes Absolute Auto 1.4 X10*3/uL (1.2-4.9); Lymphocytes Percent Auto 19.4 % (20-40); Mean Corpuscular HGB Conc 29.5 g/dl (31.0-35.0); Mean Corpuscular Hemoglobin 28.7 pg (27.0-33.0); Mean Corpuscular Volume 97.2 fL (80.0-98.0); Mean Platelet Volume 10.8 fL (9.4-12.3); Monocytes Absolute Auto 0.7 X10*3/uL (0.1-1.2); Monocytes Percent Auto 9.3 % (2-11); Neutrophils Percent Auto 70.2 % (45-73); Platelet Count 196 X10*3/uL (160-400); Red Blood Count 3.59 X10*6/uL (4.20-5.50); Red Cell Distribution Width 13.9 % (11.0-16.0); White Blood Count 7.1 X10*3/uL (4.8-10.8)
== END 2024-04-10 15:29 | disposition home or self-care (01) ==
LOC: HO.LABR 15:28
PROVIDERS: PCP Internal Medicine; Visit Provider Psychiatry & Neurology Psychiatry
DX: F25.9 Schizoaffective disorder, unspecified (principal); Z79.899 Other long term (current) drug therapy
CPT/HCPCS: 36415; 85025

== ENCOUNTER 2024-06-08 16:25 | Outpatient (REF) | payer MEDICARE, MEDICAID, SELFPAY ==
[2024-06-08 16:37] LABS: MANUAL DIFF FLAG NO
[2024-06-08 17:06] LABS: Basophils Percent Auto 0.5 % (0-2); Hematocrit 38.2 % (37.0-47.0); Hemoglobin 11.3 g/dl (12.0-16.0); Imm Gran Abs Auto 0.03 X10*3/uL (0.00-0.03); Imm Gran Pct Auto 0.5 % (0.0-0.4); Lymphocytes Absolute Auto 1.1 X10*3/uL (1.2-4.9); Lymphocytes Percent Auto 17.2 % (20-40); Mean Corpuscular HGB Conc 29.6 g/dl (31.0-35.0); Mean Corpuscular Hemoglobin 28.4 pg (27.0-33.0); Mean Platelet Volume 10.9 fL (9.4-12.3); Monocytes Absolute Auto 0.3 X10*3/uL (0.1-1.2); Monocytes Percent Auto 4.7 % (2-11); Neutrophils Absolute Auto 4.9 x10*3/uL (2.0-8.3); Neutrophils Percent Auto 77.1 % (45-73); Platelet Count 201 X10*3/uL (160-400); Red Blood Count 3.98 X10*6/uL (4.20-5.50); Red Cell Distribution Width 14.6 % (11.0-16.0); White Blood Count 6.4 X10*3/uL (4.8-10.8)
--- OUTSIDE RECORDS SUMMARY | 2024-06-08 19:27 | XMS_ITS | Encounter Summary ---
Author Organization [facility] Address [address] [place] [address] Phone Care Team Providers Care Glazing Superintendent Name Role Phone Erasmo Morrison MD Primary Care Provider [phone] Reason for Visit * Reason Comments Med Refill Encounter Details Date Type Department Care Team (Late st Contact Info) Description 06/06/2024 Refill [facility] [address] [place] [phone] Dayo Potter MD [address] [address] Chronic kidney disease, stage 4 (severe) ([facility]) Social History Tobacco Use Types Packs/Day Years Used Date Smoking Tobacco: Every Day Cigarettes Smokeless Tobacco: Never Alcohol Use Standard Drinks/Week Comments No 0 (1 standard drink = 0.6 oz pur e alcohol) Comments Unknown Sex and Gender Information Value Date Recorded Sex Assigned at Not on file Legal Sex Female 5:26 PM EST Gender Identity Not on file Sexual Orientation Not on file documented as of this encounter Plan of Treatment Upcoming Encounters Date Type Department Care Team (Late st Contact Info) Description 07/03/2024 3:45 PM EDT Office Visit [facility] [address] [place] [address] Dayo oPtter MD [address] [facility] [address] [place] [address] documented as of this encounter Visit Diagnoses Diagnosis Chronic kidney disease, stage 4 (severe) (HCC) documented in this encounter Care Teams Glazing Superintendent Relationship Specialty Start Date End Date Erasmo Morrison MD [address] [place] [address], [address] [place] [address] PCP - General 02/14/19 documented as of this encounter
--- OUTSIDE RECORDS SUMMARY | 2024-06-08 19:27 | XMS_ITS | Clinical Summary ---
Author Organization [address] [facility] Address [address] [place] [address] Phone Care Team Providers Care Escort Vehicle Driver Name Role Phone Physician, Pcp Unknown Primary Care Provider Verena vailable Social History Tobacco Use Types Packs/Day Years Used Date Smoking Tobacco: Never Assessed Comments Unknown Sex and Gender Information Value Date Recorded Sex Assigned at Not on file Legal Sex Female 1:38 PM EST Gender Identity Not on file Sexual Orientation Not on file Plan of Treatment Upcoming Encounters Date Type Department Care Team ([facility] Contact Info) Description 06/20/2024 3:00 PM EDT Consult Orthopedic Surgery - [place] [id number] [phone] David Sharpe, [address] [address] Health Maintenance Due Date Last Done Comments Breast Cancer Screening 1960 DTaP,Tdap,and Td Vaccines (1 - Tdap) 1981 Cervical Cancer Screening: P ap Smear 11/05/1983 Pneumococcal Vaccine: 50+ Ye ars (1 of 1 - PCV) 2012 Zoster Vaccines (1 of 2) 2012 COVID-19 Vaccine ( - 2023-2 5 season) 2023 Influenza Vaccine (#1) 2023 Colorectal Cancer Screening: Colonoscopy 05/10/2024 Depression Screening 05/10/2024 HIV Screening 05/10/2024 Hepatitis C Screening 05/10/2024 Medicare Annual Wellness Visit 05/10/2024 Social Influencers of Health Screening 05/10/2024 RSV Immunization Patients 60 + Years Old (1 - 1-dose 75+ series) 2037 HIB Vaccines Aged Out No longer eligi ble based on patient's age to complete this topic HPV Vaccines Aged Out No longer eligi ble based on patient's age to complete this topic Hepatitis A Vaccines Aged Out No long er eligible based on patient's age to complete this topic Hepatitis B Vaccines Aged Out No long er eligible based on patient's age to complete this topic IPV Vaccines Aged Out No longer eligi ble based on patient's age to complete this topic MMR Vaccines Aged Out No longer eligi ble based on patient's age to complete this topic Meningococcal ACWY Vaccine Aged Out N o longer eligible based on patient's age to complete this topic Meningococcal B Vacine Aged Out No lo nger eligible based on patient's age to complete this topic Pneumococcal Vaccine: Pediat rics (0 to 5 Years) and At-Risk Patients (6 to 64 Years) Aged Out No longer eligible b ased on patient's age to complete this topic RSV Immunization Patients Un doreen 20 months Aged Out No longer eligible b ased on patient's age to complete this topic Varicella Vaccines Aged Out No longer eligible based on patient's age to complete this topic Insurance * Guarantor: Petrona Patterson Account Type Relation to Patient Date of Phone Billing Address Personal/Family Self 1960 [address] [facility] [address] [place] [address] MEDICARE MEDICAID - [place] Care Teams Escort Vehicle Driver Relationship Specialty Start Date End Date Physician, Pcp Unknown PCP - General 05/09/24
--- OUTSIDE RECORDS SUMMARY | 2024-06-08 19:27 | XMS_ITS | Clinical Summary ---
Author Organization [facility] Address [address] [place] [address] Phone Care Team Providers Care Auto Top Mechanic Name Role Phone Erasmo Morrison MD Primary Care Provider [phone] Allergies Active Allergy Reactions Criticality Noted Date Comments Guaifenesin Other (see comments) 07/05/2017 Medications cloZAPine (CLOZARIL) 100 MG tablet Take 150 mg by mouth 1 (one) time each day 175 mg Active ergocalciferol (VITAMIN D-2) 1.25 MG (19179 UT) capsule Take 1 capsule by mouth every 14 (fourteen) days 0 Active lamoTRIgine (LaMICtal) 150 MG tablet Take 1 tablet by mouth 1 (one) time each day Active levothyroxine (SYNTHROID, LEVOTHROID) 88 MCG tablet Take 1 tablet by mouth 1 (one) time each day Active propranolol (INDERAL) 20 MG tablet Take 1 tablet by mouth 1 (one) time each day Active atorvastatin (LIPITOR) 10 MG tablet 1 Active cyclobenzaprin e (FLEXERIL) 5 MG tablet Take 5 mg by mouth if needed for muscle spasms Active calcitriol (ROCALTROL) 0.25 MCG capsuleIndicat ions:Chronic kidney disease, stage 4 (severe) (HCC) TAKE 1 CAPSULE (0.25 MCG TOTAL) BY MOUTH 1 (ONE) TIME EACH DAY 90 capsule 1 5 Active calcitriol (ROCALTROL) 0.25 MCG capsuleIndicat ions:Chronic kidney disease, stage 4 (severe) (HCC) TAKE 1 CAPSULE (0.25 MCG TOTAL) BY MOUTH 1 (ONE) TIME EACH DAY 90 capsule 1 4 06/07/19 25 Discontinued Active Problems Problem Noted Date Diagnosed Date Chronic kidney disease, stage 4 (severe) 024 Chronic kidney disease, stage 4 (severe) 024 Chronic obstructive asthma, unspecified 05/13/19 24 Overview (05/24/2023): Recovered from hospitalization at [facility] April 2023 Acute respiratory failure with hypoxia Anxiety disorder 04/15/2023 Other asthma 04/15/2023 COVID-19 04/15/2023 Overview (05/24/2023): 04/09/2023 Hyperlipidemia 04/15/2023 Hyperosmolality and hypernatremia 04/15/2023 Recurrent major depressive disorder 04/15/2023 Pneumonia 04/15/2023 Unilateral primary osteoarthritis, unspecified k nee 04/15/2023 Hyperparathyroidism 01/20/2023 Overview (05/24/2023): Last Assessment & Plan: This is a patient with CKD stage V who had been on lithium for many years and is suspected that the lithium resulted in renal insufficiency. Both lithium and renal insufficiency can result in hyperparathyroidism. Presently the patient is following with nephrology who has prescribed calcitriol so I suspect that she has secondary hyperparathyroidism. However she has other reasons for having hyperparathyroidism this includes decreased calcium intake. Serum calcium levels have been in the reference range so I doubt that this is primary hyperparathyroidism. The patient does have osteoporosis and if she did have primary hyperparathyroidism I will result in this condition. I really am not suspecting primary hyperparathyroidism but I will go ahead and do biochemical evaluation for more clarification. I will request 24- hour urine calcium studies and phosphorus studies magnesium phosphorus, ionized calcium 1, 25 dihydroxy vitamin D and a comprehensive. We will follow in 3 months. Chronic kidney disease, stage 4 (severe) 023 Other osteoporosis without current pathological fracture 06/21/2022 Overview (05/24/2023): Right femoral neck -2.9, June 2022. Likely due to chronic kidney disease Chronic kidney disease, stage 4 (severe) 022 Chronic kidney disease, stage 4 (severe) 021 Renal osteodystrophy 11/05/2020 Perimenopausal state 08/12/2020 Overview (11/05/2020): Last Assessment & Plan: We reviewed normal parameters for bleeding in perimenopause, and definition of menopause as one year without menses. Advised to keep track of cycles to determine when she reaches this point (last menses 04/2020) Chronic kidney disease stage 4 06/24/2020 Gastro-esophageal reflux disease without esophag itis 01/04/2018 Stage 3 chronic kidney disease 10/07/2017 Overview (06/24/2020): Follows w Dr Potter, has CKD from [place]. Creat 1.8, stable Acquired hypothyroidism 07/05/2017 Arthritis of knee 07/05/2017 Overview (06/24/2020): Used to see Dr Durbin Bipolar I disorder 07/05/2017 Overview (06/24/2020): Stable on Clozaril, off Li due to CKD Obesity 07/05/2017 Onychomycosis 07/05/2017 Encounters Date Type Department Care Team Description 06/06/2024 Refill [facility] [address] [place] [address] Dayo Potter MD Chronic kidney disease, stage 4 (severe) ([facility]) from Last 3 Months Immunizations Name Administration Dates Next Due Influenza, Quadrivalent, Pre servative Free 12/10/2021,03/24/2019 Influenza, Recombinant, Quad rivalent, Pf 04/09/2021,01/04/2018 Pfizer SARS-COV-2 09/24/2021,,09/05/2020,08/14 Pneumococcal Polysaccharide 12/05/2020 Shingrix 12/10/2021,09/24/2021 Tdap 01/04/2018 Family History Medical History Relation Comments Cancer Mother Kidney disease Mother nephrectomy Relation Status Comments Father Alive Mother Social History Tobacco Use Types Packs/Day Years [...] on file Sexual Orientation Not on file Last Filed Vital Signs Vital Sign Reading Time Taken Comments Blood Pressure 134/88 02/28/2024 3:12 PM EST Pulse 65 02/28/2024 3:12 PM EST Temperature - - Respiratory Rate - - Oxygen Saturation 97% 02/28/2024 3:12 PM EST Inhaled Oxygen Concentration - - Weight 101 kg (223 lb) 02/28/2024 3:12 PM EST Height 160 cm (5' 3 ) 01/09/2019 12:00 PM EDT Body Mass Index 39.5 01/09/2019 12:00 PM EDT Plan of Treatment Upcoming Encounters Date Type Department Care Team (Late st Contact Info) Description 07/03/2024 3:45 PM EDT Office Visit [facility] [address] [place] [address] Dayo Potter MD [address] [facility] [address] [place] [phone] Health Maintenance Due Date Last Done Comments Breast Cancer Screening 1960 Colorectal Cancer Screening: Annual FOBT 11/05/2011 Colorectal Cancer Screening: Colonoscopy 11/05/2011 Colorectal Cancer Screening: Sigmoidoscopy 11/05/2011 Pneumococcal Vaccine: Pediatrics (0 to 5 Years) and At-Risk Patients (6 to 64 Years) (2 of 2 - PCV) 12/05/2021 12/05/2020 Influenza Vaccine Completed 01/29/2024, , 04/09/2021, Additional history exists Hepatitis B Vaccine Aged Out No longe r eligible based on patient's age to complete this topic [place] [id number] [address] [place] [address] Care Teams Auto Top Mechanic Relationship Specialty Start Date End Date Erasmo Morrison MD [address] [facility], [address] [place] [address] PCP - General 02/14/19
== END 2024-06-08 16:26 | disposition home or self-care (01) ==
LOC: HO.LABR 16:25
PROVIDERS: PCP Internal Medicine; Visit Provider Psychiatry & Neurology Psychiatry
DX: F25.9 Schizoaffective disorder, unspecified (principal); Z79.899 Other long term (current) drug therapy
CPT/HCPCS: 36415; 85025

== ENCOUNTER 2024-06-28 16:15 | Outpatient (REF) | payer MEDICARE, MEDICAID, SELFPAY ==
[2024-06-28 18:37] LABS: Hematocrit 37.1 % (37.0-47.0); Hemoglobin 11.3 g/dl (12.0-16.0); Mean Corpuscular HGB Conc 30.5 g/dl (31.0-35.0); Mean Corpuscular Hemoglobin 28.5 pg (27.0-33.0); Mean Corpuscular Volume 93.5 fL (80.0-98.0); Mean Platelet Volume 10.7 fL (9.4-12.3); Platelet Count 185 X10*3/uL (160-400); Red Blood Count 3.97 X10*6/uL (4.20-5.50); Red Cell Distribution Width 14.6 % (11.0-16.0); White Blood Count 5.9 X10*3/uL (4.8-10.8)
[2024-06-28 19:12] LABS: Anion Gap 13 (12-20); Blood Urea Nitrogen 33 mg/dL (9-16); Calcium 9.8 mg/dL (8.4-10.2); Carbon Dioxide 25 mmol/L (22-29); Chloride 112 mmol/L (96-108); Estimated Glomerular Filt Rate 15; Magnesium 2.3 mg/dL (1.6-2.6); Parathyroid Hormone Intact 174.8 pg/mL (8.7-77.1); Phosphorus 3.4 mg/dL (2.7-4.5); Potassium 4.5 mmol/L (3.3-5.1); Sodium 145 mmol/L (135-145)
[2024-06-28 19:26] LABS: Vitamin D 25-OH Total 40.6 ng/mL (>30)
== END 2024-06-28 16:16 | disposition home or self-care (01) ==
LOC: HO.LAB 16:15
PROVIDERS: PCP Internal Medicine; Visit Provider Internal Medicine Nephrology
DX: N18.4 Chronic kidney disease, stage 4 (severe) (principal); N25.0 Renal osteodystrophy
CPT/HCPCS: 36415; 80051; 82040; 82306; 82310; 82565; 83735; 83970; 84100; 84520; 85027

== ENCOUNTER 2024-06-29 15:03 | Outpatient (REF) | payer MEDICARE, MEDICAID, SELFPAY ==
[2024-06-29 15:22] LABS: Appearance Urine Clear; Color Urine Yellow; Glucose Urine UA Negative (Negative); Leukocyte Esterase Urine Large (3+) (Negative); Nitrite Urine Negative (Negative); Specific Gravity - Urine <= 1.005 (1.005-1.025); UMIC TRIGGER UA YES; Urine Blood Trace (Negative); Urine Ketones Negative (Negative); Urine Protein Negative (Neg-Trace)
[2024-06-29 15:24] LABS: Bacteria Urine 1+ (None Seen); Hyaline Casts Urine 0-2 /LPF (0-2); RBC Urine 0-2 /HPF (0-2); WBC Urine 21-50 /HPF (0-5)
[2024-06-29 15:50] LABS: Creatinine Urine 21.89 mg/dL; Microalbum/Creatinine Ratio Ur 27.4 ug/mg cr (<30); Total Protein Urine Random < 7 mg/dL (<12)
== END 2024-06-29 15:04 | disposition home or self-care (01) ==
LOC: HO.LNP 15:03
PROVIDERS: Visit Provider Internal Medicine Nephrology
DX: N18.4 Chronic kidney disease, stage 4 (severe) (principal); N25.0 Renal osteodystrophy
CPT/HCPCS: 81001; 82043; 82570; 84156

== ENCOUNTER 2024-11-28 14:56 | Outpatient (REF) | payer MEDICARE, MEDICAID, SELFPAY ==
[2024-11-28 15:52] LABS: MANUAL DIFF FLAG NO
[2024-11-28 16:02] LABS: Hematocrit 36.5 % (37.0-47.0); Hemoglobin 10.8 g/dl (12.0-16.0); Imm Gran Abs Auto 0.03 X10*3/uL (0.00-0.03); Imm Gran Pct Auto 0.4 % (0.0-0.4); Lymphocytes Absolute Auto 1.7 X10*3/uL (1.2-4.9); Mean Corpuscular HGB Conc 29.6 g/dl (31.0-35.0); Mean Corpuscular Hemoglobin 28.5 pg (27.0-33.0); Mean Corpuscular Volume 96.3 fL (80.0-98.0); NRBC Abs Auto 0.000 X10*3/uL (0.0-0.012); NRBC Pct Auto 0.0 /100WBC (0.0-0.2); Platelet Count 183 X10*3/uL (160-400); Red Blood Count 3.79 X10*6/uL (4.20-5.50); White Blood Count 7.6 X10*3/uL (4.8-10.8)
[2024-12-03 09:24] LABS: Clozapine (Clozaril) 436 mcg/L
[2024-12-04 02:49] LABS: Lamotrigine Lamictal <0.5 mcg/mL (2.5-15.0)
== END 2024-11-28 14:57 | disposition home or self-care (01) ==
LOC: HO.LAB 14:56
PROVIDERS: Clinical Nurse Specialist Psychiatric/Mental Health, Adult; PCP Internal Medicine; Referring Provider Internal Medicine; Visit Provider Psychiatry & Neurology Psychiatry
DX: G31.84 Mild cognitive impairment of uncertain or unknown etiology (principal); F25.9 Schizoaffective disorder, unspecified; R25.1 Tremor, unspecified; Z79.899 Other long term (current) drug therapy
CPT/HCPCS: 36415; 80159; 80175; 85025; 99212

== ENCOUNTER 2024-11-28 14:56 | Outpatient (AMB) | payer MEDICARE, MEDICAID, SELFPAY ==
--- NOTE | 2024-11-28 14:58 | A.OFFVIS_ITS ---
Intake Visit Reasons: 1 Year Accompanied by: Spouse Allergies [email or web address] (From [facility]) Adverse Reaction (Unknown, Verified 11/28/24 15:05) NAUSEA HPI Comments Details: She was doing okay. Memory was stable. Feels long-term memory better than short- term. No significant word finding difficulty. Sleep was okay. Mood was okay, following with psychiatrist. Mild tremor in hands, has not worsened. No functional impairment. No difficulty eating, drinking, or swallowing. No falls. She has some labs ordered and is getting them today. Kidney functions stable, has not needed dialysis. No longer taking lithium. Has multiple psych diagnoses including schizoaffective disorder, mood disorder and some degree of schizophrenia. She has had multiple psych admissions and has been disabled for more than 18 years. She graduated with difficulty from [employer] and attended one or two courses in college. She lives at home with her and has an adult daughter. Previously, her noticed a distinct change in personality and mentation. She was seen in the past for apathy, lack of awareness of her condition, and some behavior problems with difficulty following commands, and poor concentration and memory. She has had 2 MOCA evaluations that have scored on an average 22. Biggest deficit is in delayed recall where she is recalled 1 out of 5. She also scored 26 out of 30 on a Folstein Mini-Mental State Exam previously. She had 1 out of 3 recall at the end of 3 minutes. Her speech and language functions were intact. Although, sometimes she appears to be searching for words and seems to have trouble focusing and concentrates to try and answer questions appropriately. [facility] Medical History CKD (chronic kidney disease), stage IV Hyperlipidemia Asthma-COPD overlap syndrome Mood disorder Hypothyroidism Social History Alcohol intake: never Advance Directives Date on File: 04/19/23 service: No Review of Systems Const Denies chills, Denies daytime sleepiness, Denies difficulty sleeping, Denies fatigue, Denies fever(s), Denies frequent falls, Denies headache(s), Denies increased appetite, Denies poor appetite, Denies snoring, Denies weakness, Denies weight gain and Denies weight loss Eyes Denies loss of vision ENT Denies vertigo, Denies dizziness, Denies headache(s) and Denies neck pain Card Denies chest pain at rest, Denies chest pain with activity, Denies syncope, Denies leg edema, Denies palpitations, Denies dyspnea and Denies dyspnea on exertion Resp Denies cough, Denies dyspnea, Denies dyspnea on exertion and Denies snoring GI Denies abdominal pain, Denies constipation, Denies heartburn, Denies diarrhea and Denies nausea Denies urinary frequency, Denies urinary incontinence and Denies urinary urgency Musc Denies abnormal gait, Denies back pain, Denies myalgias, Denies arthralgias, Denies neck pain, Denies numbness and Denies tingling Neuro Denies abnormal gait, Denies vertigo, Denies dizziness, Denies syncope, Denies frequent falls, Denies headache(s), Denies lack of coordination, Denies loss of vision, Reports memory loss, Denies numbness, Denies Other visual disturbances, Denies restless legs, Denies seizure-like activity, Denies tingling, Denies paresthesias, Reports tremor(s) and Denies weakness Psych Denies anxiety, Denies depression, Denies auditory hallucinations, Reports memory loss and Denies visual hallucinations Endo Denies fatigue and Denies palpitations Physical Exam Const Other: General Appearance:? normal, in no acute distress. Heart:? S1, S2 normal, no murmurs. Lungs:? clear anteriorly and posteriorly. Musculoskeletal:? normal. Extremities:? no edema. Psych:? alert, as below. Neuro Other: Abnormal Neurological Findings:?Mild bilateral hand tremor, worse when focusing on answering questions. No stiffness or rigidity. MMSE 27/30. Mental Status: alert, as below. Cranial Nerves: Pupils are equal, round, and reactive to light. External ocular muscles are intact. Visual romo are full, no ptosis. Face is symmetrical, no facial weakness or droop. Facial sensations are normal. Tongue protrudes in midline. Palate elevates symmetrically. Shoulder shrugging is normal Motor Examination: Normal muscle tone, bulk and strength. No atrophy or fasciculations. No drift of the extended upper extremities. DTR 2+. Plantars are flexor. Sensory Exam: Normal light touch, temperature, pinprick, vibration, and joint-p osition sensations. Rhomberg sign is absent. Coordination: No ataxia. No titubation. Qlswzt-[id number]-opru, ujdg-[id number]-[id number] test, and rapid alternating movements were normal. Gait Exam: Within normal limits. Cerebellar Signs: [id number]-el-[id number] and afgd-[id number]-qmmj is normal. No dysdiadochokinesia. Extrapyramidal System: Tremor as above. No rigidity with normal facial expressions. No bradykinesia. No bradyphrenia. Normal arm swing and posture. No propulsion or retropulsion. Speech: Normal. MMSE Level of Consciousness: Alert. Orientation: Knows correct year, month, date, and season. Not day. Knows correct city, county and state. Knows correct location and floor. Registration: Able to register 3 objects. Attention: Serial 7's performed accurately. Recall: Able to recall 1 out of 3 objects. Language: Normal spontaneous speech, fluency, repetition, naming, comprehension, reading, and writing. Total Score: 27/30. Results Reviewed Results Reviewed: Laboratory Tests 02/22/24 06/28/24 16:54 16:54 WBC 5.9 RBC 3.97 L Hgb 11.3 L Hct 37.1 MCV 93.5 MCH 28.5 MCHC 30.5 L RDW 14.6 Plt Count 185 MPV 10.7 Sodium 145 Potassium 4.5 Chloride 112 H Carbon Dioxide 25 Anion Gap 13 BUN 30 H 33 H Creatinine 3.21 H 3.13 H Estimated GFR 15 15 Calcium 9.8 Phosphorus 3.4 Magnesium 2.3 Albumin 4.0 25-OH Vitamin D Total 40.6 06/28/14 EEG was normal A brain SPECT scan was noncontributory. FDG PET scan is not insurance approved Assessment & Plan Assessment & Plan (1) MCI (mild cognitive impairment): Code(s): G31.84 - Mild cognitive impairment of uncertain or unknown etiology Category: Medical Plan: Lab results reviewed, she was due for labs and was planning to get labs done today. Continue current treatment, stay physically and socially active. (2) Tremor: Code(s): R25.1 - Tremor, unspecified Category: Medical Plan: Tremor was mild. Coding Level of Care Code Est Pt Level 3 (87601) Diagnoses MCI (mild cognitive impairment) G31.84 Tremor R25.1
--- OUTSIDE RECORDS SUMMARY | 2024-11-28 16:19 | XMS_ITS | Clinical Summary ---
Author Organization [facility] Address [address] [place] [phone] Phone Care Team Providers Care Party Plan Sales Agent Name Role Phone Erasmo Morrison MD Primary Care Provider [phone] Erasmo Morrison MD Unavailable [phone] Allergies Active Allergy Reactions Criticality Noted Date Comments Guaifenesin GI Upset,Other (See Comments) 07/05 Medications SENNOSIDES (SENNA ORAL) Take 8.6 tablets by mouth as needed (constipatio n). 4 Active lamoTRIgine (LAMICTAL) 150 MG tablet Take 1 tablet by mouth daily. Active prochlorperazine (COMPAZINE) 10 MG tablet Take 10 mg by mouth 3 (three) times a day as needed. 1 Active acetaminophen (TYLENOL) 325 mg tablet Take 650 mg by mouth every 6 (six) hours as needed for pain (specific location in comments). 4 Active cyclobenzaprine (FLEXERIL) 5 MG tablet Take 5 mg by mouth as needed. Active polyethylene glycol (MIRALAX) 17 gram packet Take 17 g by mouth daily. 60 packet 5 4 Active cloZAPine (CLOZARIL) 50 MG tablet TAKE 3 TABLET BY MOUTH EVERY NIGHT THIS IS CURRENT DOSE 08/05/23 4 Active pantoprazole (PROTONIX) 40 MG tabletIndications: Gastroesophageal reflux disease without esophagitis TAKE 1 TABLET BY MOUTH EVERY DAY 90 tablet 3 5 Active atorvastatin (LIPITOR) 10 MG tablet TAKE 1 TABLET BY MOUTH EVERY DAY 90 tablet 3 5 Active calcitriol (ROCALTROL) 0.25 MCG capsule take 1 capsule (0.25 mcg total) by mouth 1 (one) time each day Active calcium citrate-vitamin D3 315 mg-6.25 mcg (250 unit) per tabletIndications: Hyperparathyroidis m, unspecified Take 2 tablets by mouth 2 (two) times a day. 360 tablet 3 5 Active ipratropium-albute roL (COMBIVENT RESPIMAT) 20-100 mcg/actuation Mist Inhale 1 puff into the lungs. 4 Active levothyroxine (SYNTHROID, LEVOTHROID) 88 MCG tabletIndications: Acquired hypothyroidism TAKE 1 TABLET BY MOUTH EVERY DAY IN THE MORNING 90 tablet 1 5 Active phentermine 15 MG capsuleIndications :Class 1 obesity due to excess calories without serious comorbidity with body mass index (BMI) of 34.0 to 34.9 in adult Take 1 capsule (15 mg total) by mouth daily before breakfast. 30 capsule 3 5 Active propranoloL (INDERAL) 20 MG immediate release tablet Take 1 tablet by mouth daily. 024 Discontin ued(Thera py Completed /No Longer Necessary ) Active Problems Problem Noted Date Diagnosed Date Complex endometrial hyperplasia with atypia 02/11 Overview (03/10/2024): Discovered at hysteroscopy performed for thick EM and PMB. TLH/BSO planned 03/17/2024 Post-menopausal bleeding 12/30/2023 Abnormal ultrasound of endometrium 12/30/2023 Tobacco dependence 12/28/2023 Overview (12/28/2023): The patient was counseled regarding tobacco cessation strategies. Medication management was also discussed, as well as risks of continued use. Counseling time: 8 Declines Rx or referral Chronic idiopathic constipation 07/06/2023 Overview (07/06/2023): She has been on statin for years and sometimes overuses it. She had to emergency room visits at [facility] June 2023. We discussed in detail to continue with just once daily senna, MiraLAX twice daily. If no bowel movement for 4 to 5 days then take Dulcolax. Refer to GI if symptoms do not improve. Asthma-chronic obstructive p ulmonary disease overlap syndrome 05/13/2023 Overview (11/02/2023): Recovered from hospitalization at [facility] April 2023 Recovered from hospitalization at [facility] April 2023 COVID-19 05/13/2023 Overview (05/13/2023): 04/09/2023 Anxiety disorder 04/15/2023 Hyperlipidemia 04/15/2023 Recurrent major depressive disorder 04/15/2023 Other asthma 04/15/2023 Hyperparathyroidism 01/20/2023 Overview (11/02/2023): Last Assessment & Plan: This is a [...] comprehensive. We will follow in 3 months. Assessment & Plan (02/09/2024 2:53 PM EDT): She has multifactorial reasons for having hyperparathyroidism this includes decreased calcium intake, secondary hyperparathyroidism and lithium use. Recently she stopped taking calcium intake and her PTH increased again. I suggested to resume calcium intake the way she was doing before. The PTH is not ever going to completely normalize and we do not really want to do any surgical procedures or give her Sensipar to normalize the PTH because they actually may result in worsening problems such as adynamic bone disease. So she should just continue taking calcium and vitamin D supplements. As for osteoporosis this is being followed by her manager transmission she is due for repeat DXA scan in 06/17/2024 and she should have repeat study requested now. I asked her to contact her primary care physician or radiologist to request. I will give her a follow-up appointment in a year's time requesting a repeat PTH and comprehensive level before the next visit. Assessment & Plan (09/02/2023 3:06 PM EDT): Hyperparathyroidism seems to be multifactorial due to her long-term chronic lithium use, renal insufficiency and decreased calcium intake. She is now taking adequate calcium intake. 24-hour urine calcium was in good range but she did take her calcium pills on the day of the 24-hour urine collection which will likely throw this off. For the follow-up visit I will request PTH and comprehensive hopefully the PTH has decreased with greater calcium intake. She will follow in 3 months. Assessment & Plan (06/03/2023 3:20 PM EST): This appears to be multifactorial as a result of prior use of lithium, renal insufficiency, and decreased calcium intake. All lab work was sent and the reference ranges have for the 24-hour urine calcium output which was low indicating that she does not get adequate calcium intake. I recommend that the patient get at least 1200 mg of calcium daily. Based on her diet she gets close to 300 mg of calcium so I would suggest either taking 500 mg or 600 of milligrams of calcium twice daily with food. I could then repeat 24-hour urine calcium output to see if there is an improvement in calcium output. Assessment & Plan (01/20/2023 3:10 PM EDT): This is a patient with CKD stage [...] comprehensive. We will follow in 3 months. Other osteoporosis without current pathological fracture 06/21/2022 Overview (06/21/2022): Right femoral neck -2.9, June 2022. Likely due to chronic kidney disease Renal osteodystrophy 11/05/2020 Stage 4 chronic kidney disease 06/24/2020 Gastroesophageal reflux disease without esophagi tis 01/04/2018 Stage 3 chronic kidney disease 10/07/2017 Overview (01/05/2019): Follows w Dr Potter, has CKD from [place]. Creat 1.8, stable Bipolar I disorder 07/05/2017 Overview (11/02/2023): Stable on Clozaril, off Li due to CKD Stable on Clozaril, off Li due to CKD Unilateral primary osteoarthritis, unspecified k nee 07/05/2017 Overview (11/02/2023): Used to see Dr Durbin Hypothyroidism, unspecified 07/05/2017 Onychomycosis 07/05/2017 Class 1 obesity due to exces s calories without serious comorbidity with body mass index (BMI) of 34.0 to 34.9 in adult 07/05/2017 Overview (10/16/2024): We discussed strategies for improving fitness and losing weight. Patient should concentrate on developing healthy habits of aerobic and light weight training exercise for 30-60 minutes, averaging at least 3-4 times a week. This should include light weight training, core strengthening, flexibility, and at least 30 minutes of aerobic exercise. Also try to cut down or eliminate carbohydrates and unnecessary calories from beverages. October 2024: They were unable to afford GLP-1. Try low-dose phentermine, recommended she consider the bariatric clinic Obesity 07/05/2017 Resolved Problems Problem Noted Date Diagnosed Date Resolved Date Perimenopause 08/12/2020 03/10/2024 Assessment & Plan (08/12/2020 3:51 PM EDT): We reviewed normal parameters for bleeding in perimenopause, and definition of menopause as one year without menses. Advised to keep track of cycles to determine when she reaches this point (last menses 04/2020) Encounters Date Type Department Care Team Description 10/18/2024 10:44 AM EDT - 10/18/2024 11:59 PM EDT Hospital Encounter [address] [place] [address] Erasmo Morrison MD Discharge Disposition: Home or Self Care 10/16/2024 3:45 PM EDT Office Visit [facility] [address] [place] [address] Erasmo Morrison MD Class 1 obesity due to excess calories without serious comorbidity with body mass index (BMI) of 34.0 to 34.9 in adult (Primary Dx); Bipolar I disorder 09/07/2024 Procedure Pass [address] [place] [address] 09/07/2024 Transcribe Orders Virtual Department [address] [place] [address] Erasmo Morrison MD Breast screening (Primary Dx) from Last 3 Months Immunizations Immunization Administration Dates Next Due COVID-19 (Pre-02/01) Pfizer Vaccine, mRNA, PF 09/24/2021,04/09/2021,09/05/2020,08/14 Influenza Quadrivalent Prese rvative Free IM 12/10/2021,03/24/2019 Influenza Recombinant Margarito valent Preservative Free IM 04/09/2021,01/04/2018 Influenza Recombinant Trival ent 18+ Preservative Free IM 01/29/2024 PPD Test 04/26/2023 Pneumococcal polysaccharide PPSV23 12/05/2020 Tdap 01/04/2018 Zoster live 12/10/2021,09/24/2021 Zoster recombinant 12/10/2021,09/24/2021 Family History Medical History Relation Comments Breast cancer Mother Ovarian cancer Mother Relation Status Comments Brother Alive Father Alive Mother Sister Alive Social History Tobacco Use Types Packs/Day Years Used Date Smoking Tobacco: Every Day Cigarettes Smokeless Tobacco: Never Tobacco Cessation:Ready to Q uit: Not Asked; Counseling Given: Not Answered Alcohol Use Standard Drinks/Week Comments No 0 (1 standard drink = 0.6 oz pur e alcohol) Home Health Assessment: Transportation Answer Date Recorded Lack of Transportation (Medical) No 05/21/2023 Lack of Transportation (Non-Medical) No 05/21/2023 Patient Unable or Declines to Respond No 05/21/2023 Child or Family Care Answer Date Record ed Do you have problems with on e of the following making it difficult for you to work, study, or receive health care? No 12/05/2020 Education Answer Date Recorded Are you interested in more education? Not on shannen e 12/08/2022 Are you concerned about learning? Not on file 12/08/2022 No 12/08/2022 No 12/08/2022 Food Answer Date Recorded Within the past 6 months we worried whether our food would run out before we got money to buy more. Sometimes True 021 Within the past 6 months the food we bought just didn't last and we didn't have enough money to get more. Sometimes True 11/11 Residential Stability Answer Date Recor ded What is your housing situation today? I have valentina sing 12/05/2020 How many times have you move d in the past 12 months? Zero (I did not move) 12/05/2020 Paying for Meds Answer Date Recorded Do you have trouble paying for medicines? No 12/05/2020 Paying Utility Bills Answer Date Record ed Do you have trouble paying your heating or elect ricity bill? Yes 12/05/2020 Transportation Answer Date Recorded Has the lack of transportati on kept you from medical appointments or from getting medications? No 12/05/2020 Unemployment Answer Date Recorded Are you currently unemployed or working on a part-time or temporary basis, and looking for work? No 12/05/2020 Digital Access Answer Date Recorded No 09/07/2022 No 09/07/2022 Reliable internet access at home? Not on file 09/07/2022 Device with a working camera? Not on file Intimate Partner Violence Answer Date R ecorded Are you denied basic needs s uch as food, clothing, or medical care? No 12/30/2023 In the past 12 months have y ou been in a relationship with a person who hurts, threatens, or tries to control you? No 12/30/2023 Are you denied basic needs s uch as food, clothing, or medical care? No 12/30/2023 In the past 12 months have y ou been in a relationship with a person who hurts, threatens, or tries to control you? No 12/30/2023 Comments No Sex and Gender Information Value Date Recorded Sex Assigned at Not on file Legal Sex Female 9:44 PM EDT Gender Identity Not on file Sexual Orientation Not on file Last Filed Vital Signs Vital Sign Reading Time Taken Comments Blood Pressure 113/76 10/16/2024 3:41 PM EDT Pulse 99 10/16/2024 3:41 PM EDT Temperature 36.6 C (97.9 F) 10/16/2024 3:41 PM EDT Respiratory Rate 15 03/17/2024 2:20 PM EST Oxygen Saturation 99% 10/16/2024 3:41 PM EDT Inhaled Oxygen Concentration - - Weight 101.5 kg (223 lb 12.8 oz) 10/16/2024 3:41 PM EDT Height 157.5 cm (5' 2.01 ) 10/16/2024 3:41 PM ED T Body Mass Index 40.92 10/16/2024 3:41 PM EDT Plan of Treatment Upcoming Encounters Date Type Department Care Team (Late st Contact Info) Description 12/21/2024 3:45 PM EDT Office Visit [facility] [address] [place] [address] [place] [address] Erasmo Morrison MD [address] [facility] [address] [place] [address] 02/08/2025 2:20 PM EDT Office Visit [facility] [address] [place] [address] [place] [address] Buck Juarez DO [address] [place] [address] [email or web address] Health Maintenance Due Date Last Done Comments SMOKING Hx and SMOKELESS TOBACCO SCREENING 11/05/1975 COLOGUARD 11/05/2007 FIT TEST 11/05/2007 FOBT 11/05/2007 SIGMOIDOSCOPY 11/05/2007 VIRTUAL COLONOSCOPY 11/05/2007 RSV VACCINE (1 - Risk 60-74 years 1-dose series) 2022 ABSOLUTE NEUTROPHIL COUNT (ANC) 05/18/2023 04/20/2023, 01/04/2018 DEPRESSION SCREENING 12/27/2024 12/28/2023 TSH LEVEL 06/26/2025 06/26/2024, 12/11, 02/05/2022, Additional history exists COLONOSCOPY 02/02/2026 02/03/2016 COLORECTAL CANCER SCREENING 02/02/2026 PNEUMOCOCCAL VACCINES (50+ years) (2 of 2 - PCV) 06/25/2026 12/05/2020 Postponed from 12/05/2021 (Not Clinically Appropriate) MAMMOGRAM 10/18/2026 10/18/2024, 10/10, 09/29/2022, Additional history exists PAP SMEAR 11/01/2026 11/02/2023, 08/12/2020 SCREENING FOR DIABETES 06/27/2027 06/26/2024, 2024 Adult Td,Tdap Booster 01/05/2028 01/04/2018 LIPID PANEL 06/26/2029 06/26/2024, 12/11, 02/05/2022, Additional history exists HEPATITIS C SCREENING Completed 01/05/2019, 019 HIV ONE-TIME SCREENING (18-65 YEARS) Completed 01/05/2019 ZOSTER VACCINES Completed 12/10/2021, 11/12, 09/24/2021, Additional history exists COVID-19 VACCINE Completed 01/29/2024, , 09/24/2021, Additional history exists HEPATITIS A VACCINES Aged Out No long er eligible based on patient's age to complete this topic HIB VACCINES Aged Out No longer eligi ble based on patient's age to complete this topic MENINGOCOCCAL VACCINES (ACWY) Aged Out No longer eligible based on patient's age to complete this topic MENINGOCOCCAL VACCINES (B) Aged Out N o longer eligible based on patient's age to complete this topic Medical Devices Not on file Procedures Procedure Name Priority Date/Time Associated Diagnosis Comments BI MAMMOGRAM SCREENING WITH TOMOSYNTHESIS WITH CAD (BILATERAL) Routine 10/18/2024 11:17 AM EDT Breast screening LIPID PANEL Routine 06/26/2024 3:44 PM EDT Mixed hyperlipidemia TSH WITH REFLEX Routine 06/26/2024 3:44 PM EDT Acquired hypothyroidism PAP TEST Routine 11/02/2023 12:00 AM EDT CBC AND DIFFERENTIAL Routine 04/20/2023 6:04 AM EST COVID Mixed hyperlipidemia HEPATITIS C ANTIBODY, QUALITATIVE Routine 01/05/2019 2:41 PM EDT Annual physical exam HM COLONOSCOPY FOR RESULT ENTRY ONLY Routine 02/03/2016 11:01 AM EDT from Last 3 Months or Most Recently Relevant to Health Maintenance Results * BI MAMMOGRAM SCREENING WITH TOMOSYNTHESIS WITH CAD (BILATERAL) (10/18/2024 11:17 AM EDT) Anatomical Region Laterality Modality Breast Left, Breast Right, Breast Bilateral Bila teral Mammography 10/19/2024 12:5 4 PM EDT Impressions 10/19/2024 1:04 PM EDT No mammographic evidence of malignancy in either breast. Annual screening mammography is recommended. BI-RADS 2 BENIGN The patient will be notified of the results and recommendations. Narrative 10/19/2024 1:04 PM EDT BI MAMMOGRAM SCREENING WITH TOMOSYNTHESIS WITH CAD (BILATERAL) Additional patient information: Screening. Sonographically proven cyst in 7:00 position of left breast. COMPARISON: Comparison is made with relevant prior imaging. Breast composition: There are scattered areas of fibroglandular density. FINDINGS: No abnormal masses, suspicious calcifications, or other significant findings are identified mammographically in either breast. Stable focal asymmetry in the lower inner left breast. Procedure Note Abundio Lima MD - 10/19/2024 BI MAMMOGRAM SCREENING WITH TOMOSYNTHESIS WITH CAD (BILATERAL) Additional patient information: Screening. Sonographically proven cyst in7:00 position of left breast. COMPARISON: Comparison is made with relevant prior imaging. Breast composition: There are scattered areas of fibroglandular density. FINDINGS: No abnormal masses, suspicious calcifications, or other significantfindings are identified mammographically in either breast. Stable focalasymmetry in the lower inner left breast. IMPRESSION: No mammographic evidence of malignancy in either breast. Annual screening mammography is recommended. BI-RADS 2 BENIGN The patient will be notified of the results and recommendations. Erasmo Morrison MD IMG MG EXAMS Final Result * TSH with reflex (06/26/2024 3:44 PM EDT) TSH 1.51 0.27 - 4.20 uIU/mL [facility] Blood 06/26/2024 3:44 PM EDT 06/26/2024 3:46 PM EDT us Erasmo Morrison MD LAB BLOOD ORDERABLES Final Resu lt [address] [address] * Lipid panel (06/26/2024 3:44 PM EDT) HDL 39 mg/dL [facility] Comment: Interpretation <40 mg/dL: Low HDL cholesterol (major risk factor for CHD) Greater than or equal to 60 mg/dL: High HDL cholesterol ( negative risk factor for CHD) HDL - cholesterol is affected by a number of factors, e.g. smoking, excerise, hormones, sex and age. CHOLESTEROL 137 0 - 240 mg/dL [facility] TRIGLYCERIDES 138 30 - 160 mg/dL [facility] LDL 70 50 - 129 mg/dL [facility] Comment: LDL levels in terms of risk for coronary heart disease: <100 mg/dL: Optimal 100-129 mg/dL: Near or above optimal 130-159 mg/dL: Borderline high 160-189 mg/dL: High >190 mg/dL: Very High CARDIAC RISK RATIO 3.5 3.3 - 4.4 [facility] Blood 06/26/2024 3:44 PM EDT 06/26/2024 3:46 PM EDT us Erasmo Morrison MD LAB BLOOD ORDERABLES Final Resu lt [address] [address] * Pap Test (11/02/2023 12:00 AM EDT) 11/02/2023 11/03/2023 9:2 2 AM EDT Narrative SEE NARRATIVE - 11/05/2023 9:35 AM EDT [address] [address] Teacher Visually Impaired: Indiana Covarrubias MD [employer]CH[employer] Cytology Report FINAL DIAGNOSIS A. PAP SMEAR (THIN PREP) CE: SPECIMEN ADEQUACY: Satisfactory for evaluation; transformation zone present. INTERPRETATION: NEGATIVE FOR INTRAEPITHELIAL LESION OR MALIGNANCY. This specimen was analyzed by the automated ThinPrep Imaging System (Wardrobe Housekeeper.) and manually rescreened by a frame cleaner and/or pathologist. Electronically Signed Out By: NINA Driscoll(ASCP) NINA Vargas(ASCP) The Pap test is a screening test primarily for squamous cancers and precursors and has associated false-negative and false-positive results. New technologies such as liquid-based preparations may decrease but will not eliminate all false-negative results. Regular sampling and follow-up of unexplained clinical signs and symptoms are recommended to minimize false negative results. PROCEDURES/ADDENDA HPV Testing (Requested) Ordered Date: 11/03/2023 A. PAP SMEAR (THIN PREP) CE: Human Papilloma Virus Test NEGATIVE for high-risk Human Papilloma Virus types 16, 18, 45 and the Other high risk probe set (Includes 31, 33, 35, 39, 51, 52, 56, 58, 59, 66, 68) Note: Testing performed by Apto Onclarity HR-HPV analysis. Clinical correlation is advised. This HPV test was performed at [facility], [address] [place] [address]. This test has been FDA approved for both SurePath and ThinPrep cervical cytology specimens. The accuracy and precision of this test for all other specimen sources has been verified in the Cytopathology Laboratory of the [facility] and has not been cleared or approved by the U.S. Food and Drug Administration. Clinical correlation is advised. CLINICAL HISTORY Date of Last Menstrual Period: Not Provided Menstrual History: Post Menopausal Bleeding, PM Other Clinical Conditions: Screening Pap SPECIMEN SOURCE A: PAP SMEAR (THIN PREP) CE Patient Name: PETRONA PATTERSON : 1960 (Age: 62) Sex: F Institution: [facility] Location: [facility] Date of Collection: 11/02/2023 Date of Reported: 11/05/2023 09:35 Results to: Romaine Crain MD Romaine Crain MD CYTOLOGY ORDERABLES Final Result SEE NARRATIVE * (ABNORMAL) CBC and differential (04/20/2023 6:04 AM EST) WBC 10.15 4.00 - 11.00 K/uL [facility] RBC 4.45 3.72 - 5.30 M/uL [facility] HGB 13.6 11.4 - 15.9 g/dL [facility] HCT 45.3 34.2 - 46.8 % [facility] PLT 194 140 - 430 K/uL [facility] MCV 101.8(H) 78.0 - 97.0 fL [facility] MCH 30.6 25.0 - 33.0 pg [facility] MCHC 30.0(L) 32.0 - 36.0 g/dL [facility] RDW 13.6 11.0 - 16.0 % [facility] MPV 10.9 8.4 - 12.8 fl [facility] DIFF METHOD Auto [facility] NEUTS 78.2(H) 43.0 - 75.0 % [facility] LYMPHS 10.8(L) 18.2 - 47.4 % [facility] MONOS 8.0 4.00 - 11.00 % [facility] EOS 0.0 0.0 - 8.0 % [facility] BASOS 0.4 0.0 - 2.0 % [facility] Granulocytes, immature (%) 2.6(H) 0.0 - 0.9 % [facility] ABSOLUTE NEUTS 7.94(H) 1.80 - 7.70 K/uL [facility] ABSOLUTE LYMPHS 1.10 1.00 - 3.10 K/uL [facility] ABSOLUTE MONOS 0.81(H) 0.20 - 0.80 K/uL [facility] ABSOLUTE EOS 0.00 0.00 - 0.80 K/uL [facility] ABSOLUTE BASOS 0.04 0.00 - 0.09 K/uL [facility] Granulocytes, immature 0.26(H) 0.00 - 0.05 K/uL [facility] Blood 04/20/2023 6:04 AM EST 04/20/2023 10:08 AM EST us Óscar Martinez MD LAB BLOOD ORDERABLES Final Resul t [address] [address] * Hepatitis C antibody, qualitative (01/05/2019 2:41 PM EDT) HCV NON-REACTIV E NON-REACTI VE [facility] Blood 01/05/2019 2:41 PM EDT 01/05/2019 2:44 PM EDT us Erasmo Morrison MD LAB BLOOD ORDERABLES Final Resu lt [facility] [place] Organization Address City/State/ZIP Co de Phone Number [facility] [address] [place], [place] [id number] * COLONOSCOPY FOR RESULT ENTRY ONLY (02/03/2016 11:01 AM EDT) us Historical Provider HEALTH MAINTENANCE Edited Result - Final from Last 3 Months or Most Recently Relevant to Health Maintenance Insurance MEDICARE PART A & B Member Subscriber Plan / Payer (Ef fective 1994-Present) Name:Petrona Patterson Member ID:[id number] Relation to Subscriber:Self Name:Petrona Patterson Subscriber ID:[id number] Payer ID:[id number] Group ID:Not on file Type:Medicare Address: [employer] [place] [id number] [place] [address] MEDICARE PART A & B [place] & [facility] MED[facility] PART [facility] & B [facility] & [facility] Advance Directives For more information, please contact: [phone] (9AM - 5PM Leticia/[facility], Wednesday-Wednesday) * Full Code (Latest Code Status on File) Date Activated Date Inactivated Comments 03/17/2024 8:26 AM Question Answer Comments Code Status Confirmed With: Patient * Full Code Date Activated Date Inactivated Comments 12/30/2023 1:04 PM 03/17/2024 8:26 AM Question Answer Comments Code Status Confirmed With: Patient Care Teams Party Plan Sales Agent Relationship Specialty Start Date End Date Erasmo Morrison MD [address] [place] [address], [address] [place] [address] [email or web address] PCP - General Internal Medicine 07/05/17 Erasmo Morrison MD [address] [place] [address], [address] [place] [address] [email or web address] Insurance Assigned Provider 07/17/23 Additional Source Comments The information contained in this document represents components of the legal health record. It is not the complete legal health record.[facility]
--- OUTSIDE RECORDS SUMMARY | 2024-11-28 16:19 | XMS_ITS | Clinical Summary ---
Author Organization [address] [facility] Address [address] [place] [address] Phone Care Team Providers Care Commercial Underwriter Name Role Phone Physician, Pcp Unknown Primary Care Provider Verena vailable Allergies No known active allergies Medications atorvastatin (LIPITOR) 10 mg tablet Take 1 tablet (10 mg total) by mouth 1 (one) time each day. 4 Active bisacodyL (DULCOLAX) 5 mg EC tablet Take 1 tablet (5 mg total) by mouth 1 (one) time each day if needed. 4 Active calcitrioL (ROCALTROL) 0.25 mcg capsule Take 1 capsule (0.25 mcg total) by mouth 1 (one) time each day. 4 Active calcium citrate-vitamin D3 (CALTRATE MAXIMUM) 315 mg-6.25 mcg (250 unit) per tablet Take 2 tablets by mouth 2 (two) times a day. 4 Active cloZAPine (CLOZARIL) 100 mg tablet Take 1 tablet (100 mg total) by mouth 1 (one) time each day. 4 Active cyclobenzaprine (FLEXERIL) 5 mg tablet Take 1 tablet (5 mg total) by mouth at bedtime. 5 Active Combivent Respimat 20-100 mcg/actuation inhaler Inhale 1 puff by mouth 4 (four) times a day. 4 Active lamoTRIgine (LaMICtal) 150 mg tablet Take 1 tablet (150 mg total) by mouth 1 (one) time each day. 5 Active levothyroxine (SYNTHROID, LEVOTHROID) 88 mcg tablet Take 1 tablet (88 mcg total) by mouth 1 (one) time each day in the morning. 5 Active medroxyPROGESTER one (PROVERA) 10 mg tablet Take 1 tablet (10 mg total) by mouth 1 (one) time each day. for 10 days 4 Active pantoprazole (PROTONIX) 40 mg EC tablet Take 1 tablet (40 mg total) by mouth 1 (one) time each day. 5 Active prochlorperazine (COMPAZINE) 10 mg tablet Take 1 tablet (10 mg total) by mouth every 6 (six) hours if needed. 5 Active acetaminophen (TYLENOL) 325 mg suppository Insert 1 suppository (325 mg total) into the rectum every 6 (six) hours if needed for mild pain. Active ammonium lactate (AmLactin) 12 % lotion Apply topically if needed for dry skin. 400 g 2 5 08/23/19 Active Active Problems Problem Noted Date Diagnosed Date Asthma 06/20/2024 Bipolar disorder ([facility] V24, [facility] V28) 06/10 Mixed hyperlipidemia 06/20/2024 Vitamin D3 deficiency 06/20/2024 Encounters Date Type Department Care Team Description 10/30/2024 2:45 PM EDT Office Visit Orthopedic Surgery - [address] [address] David Sharpe, ROSALINDA Pain in toes of both feet (Primary Dx); Arthritis of both feet; Ingrown right big toenail; Tinea unguium from Last 3 Months Social History Tobacco Use Types Packs/Day Years Used Date Smoking Tobacco: Never Assessed Comments Unknown Sex and Gender Information Value Date Recorded Sex Assigned at Not on file Legal Sex Female 1:38 PM EST Gender Identity Not on file Sexual Orientation Not on file Last Filed Vital Signs Vital Sign Reading Time Taken Comments Blood Pressure - - Pulse - - Temperature - - Respiratory Rate - - Oxygen Saturation - - Inhaled Oxygen Concentration - - Weight 90.7 kg (200 lb) 08/22/2024 3:00 PM EDT Height 160 cm (5' 2.99 ) 08/22/2024 3:00 PM EDT Body Mass Index 35.44 08/22/2024 3:00 PM EDT Plan of Treatment Upcoming Encounters Date Type Department Care Team (Late st Contact Info) Description 01/02/2025 2:30 PM EDT Office Visit Orthopedic Surgery - [place] [address] [facility] [address] [place] [address] David Sharpe, DPM [address] [facility] [address] [place] [address] Health Maintenance Due Date Last Done Comments Cervical Cancer Screening: Pap Smear 11/05/1983 Pneumococcal Vaccine: 50+ Years (2 of 2 - PCV) 12/05/2021 12/05/2020 RSV Immunization Adult Patients (1 - Risk 60-74 years 1-dose series) 2022 Depression Screening 04/12/2024 Colorectal Cancer Screening: Colonoscopy 05/10/2024 HIV Screening 05/10/2024 Medicare Annual Wellness Visit 05/10/2024 Osteoporosis Screening (Bone Density Screening) 05/10/2024 Social Influencers of Health Screening 05/10/2024 Influenza Vaccine (#1) 2024 , 12/10/2021, 04/09/2021, Additional history exists Breast Cancer Screening 10/18/2026 10/18/2024, 10/27 DTaP,Tdap,and Td Vaccines (2 - Td or Tdap) 01/05/2028 01/04/2018 Cholesterol Screening (Lipid Panel) 06/26/2029 06/26/2024, 12/28/2023 Hepatitis C Screening Completed 01/05/2019 Zoster Vaccines Completed 12/10/2021, 09/24/2021 COVID-19 Vaccine Completed 01/29/2024, , 04/09/2021, Additional history exists HIB Vaccines Aged Out No longer eligi [...] age to complete this topic Meningococcal B Vaccine Aged Out No l onger eligible based on patient's age to complete this topic RSV Immunization Patients Under 20 months Aged Out No longer eligible based on patient's age to complete this topic Varicella Vaccines Aged Out No longer eligible based on patient's age to complete this topic Insurance * Guarantor: Petrona Weller Account Type Relation to Patient Date of Phone Billing Address Personal/Family Self 1960 [address] [place] [address] MEDICARE MEDICAID - [place] Care Teams Commercial Underwriter Relationship Specialty Start Date End Date Physician, Pcp Unknown PCP - General 05/09/24
--- OUTSIDE RECORDS SUMMARY | 2024-11-28 16:19 | XMS_ITS | Clinical Summary ---
Author Organization [facility] Address [address] [place] [address] Phone Care Team Providers Care Crane Operator Cab Name Role Phone Erasmo Morrison MD Primary Care Provider [phone] Allergies Active Allergy Reactions Criticality Noted Date Comments Guaifenesin Other (see comments) 07/05/2017 Medications cloZAPine (CLOZARIL) 100 MG tablet Take 150 mg by mouth 1 (one) time each day 175 mg Active ergocalciferol (VITAMIN D-2) 1.25 MG (20935 UT) capsule Take 1 capsule by mouth every 14 (fourteen) days 01/01/2020 Active lamoTRIgine (LaMICtal) 150 MG tablet Take 1 tablet by mouth 1 (one) time each day Active levothyroxine (SYNTHROID, LEVOTHROID) 88 MCG tablet Take 1 tablet by mouth 1 (one) time each day Active propranolol (INDERAL) 20 MG tablet Take 1 tablet by mouth 1 (one) time each day Active atorvastatin (LIPITOR) 10 MG tablet 12/23/2020 Active cyclobenzaprine (FLEXERIL) 5 MG tablet Take 5 mg by mouth if needed for muscle spasms Active calcitriol (ROCALTROL) 0.25 MCG capsuleIndicati ons:Chronic kidney disease, stage 4 (severe) (HCC) TAKE 1 CAPSULE (0.25 MCG TOTAL) BY MOUTH 1 (ONE) TIME EACH DAY 90 capsule 1 06/07/2024 Active Active Problems Problem Noted Date Diagnosed Date Chronic kidney disease, stage 4 (severe) 024 Chronic kidney disease, stage 4 (severe) 024 Chronic obstructive asthma, unspecified 05/13/19 24 Overview (05/24/2023): Recovered from hospitalization at [facility] April 2023 Acute respiratory failure with hypoxia [...] Follows w Dr Potter, has CKD from [place]. Creat 1.8, stable Acquired hypothyroidism 07/05/2017 Arthritis of knee 07/05/2017 Overview (06/24/2020): Used to see Dr Durbin Bipolar I disorder 07/05/2017 Overview (06/24/2020): Stable on Clozaril, off Li due to CKD Obesity 07/05/2017 Onychomycosis 07/05/2017 Immunizations Immunization Administration Dates Next Due Influenza, Quadrivalent, Pre servative Free 12/10/2021,03/24/2019 Influenza, Recombinant, Quad rivalent, Pf 04/09/2021,01/04/2018 Pfizer SARS-COV-2 09/24/2021, 1,09/05/2020,08/14 Pneumococcal Polysaccharide 12/05/2020 Shingrix 12/10/2021,09/24/2021 Tdap 01/04/2018 [...] Sign Reading Time Taken Comments Blood Pressure 142/94 07/03/2024 3:38 PM EDT Pulse 100 07/03/2024 3:38 PM EDT Temperature - - Respiratory Rate - - Oxygen Saturation 98% 07/03/2024 3:38 PM EDT Inhaled Oxygen Concentration - - Weight 103 kg (226 lb) 07/03/2024 3:38 PM EDT Height 160 cm (5' 3 ) 01/09/2019 12:00 PM EDT Body Mass Index 40.03 01/09/2019 12:00 PM EDT Plan of Treatment Upcoming Encounters Date Type Department Care Team (Latest Contact Info) Description 12/03/2024 Orders Only [facility] [address] [place] [id number] Dayo Potter MD [address] [address] Chronic kidney disease, stage 4 (severe) (HCC); Renal osteodystrophy 01/22/2025 3:30 PM EDT Office Visit [facility] [address] [place] [id number] Dayo Potter MD [address] [address] Health Maintenance Due Date Last Done Comments Breast Cancer Screening 1960 Colorectal Cancer Screening: Annual FOBT 11/05/2011 Colorectal Cancer Screening: Colonoscopy 11/05/2011 Colorectal Cancer Screening: Sigmoidoscopy 11/05/2011 Pneumococcal Vaccine: 50+ Years (2 of 2 - PCV) 12/05/2021 12/05/2020 Influenza Vaccine (#1) 2024 4, 12/10/2021, 04/09/2021, Additional history exists Pneumococcal Vaccine: Peds (0 to 5 Years) and At-Risk Patients (6 to 49 Years) Discontinued 12/05/2020 Hepatitis B Vaccine Aged Out No longe r eligible based on patient's age to complete this topic [place] [id number] Care Teams Crane Operator Cab Relationship Specialty Start Date End Date Erasmo Morrison MD [address] [place] [address], [address] [place] [address] PCP - General 02/14/19
== END 2024-11-28 15:15 | disposition home or self-care (01) ==
LOC: HO.HSM 14:57
PROVIDERS: PCP Internal Medicine; Referring Provider Internal Medicine; Visit Provider Registered Nurse
DX: G31.84 Mild cognitive impairment of uncertain or unknown etiology (principal); R25.1 Tremor, unspecified
CPT/HCPCS: 99213

== ENCOUNTER 2025-01-17 16:08 | Outpatient (REF) | payer MEDICARE, MEDICAID, SELFPAY ==
[2025-01-17 16:39] LABS: MANUAL DIFF FLAG NO
[2025-01-17 18:00] LABS: Hematocrit 35.3 % (37.0-47.0); Hemoglobin 10.3 g/dl (12.0-16.0); Imm Gran Abs Auto 0.03 X10*3/uL (0.00-0.03); Imm Gran Pct Auto 0.4 % (0.0-0.4); Lymphocytes Absolute Auto 1.3 X10*3/uL (1.2-4.9); Mean Corpuscular HGB Conc 29.2 g/dl (31.0-35.0); Mean Corpuscular Hemoglobin 28.5 pg (27.0-33.0); Mean Corpuscular Volume 97.8 fL (80.0-98.0); NRBC Abs Auto 0.000 X10*3/uL (0.0-0.012); NRBC Pct Auto 0.0 /100WBC (0.0-0.2); Platelet Count 184 X10*3/uL (160-400); Red Blood Count 3.61 X10*6/uL (4.20-5.50); White Blood Count 7.0 X10*3/uL (4.8-10.8)
[2025-01-17 19:18] LABS: Parathyroid Hormone Intact 209.6 pg/mL (8.7-77.1)
[2025-01-17 19:27] LABS: Albumin Level 4.0 g/dL (3.5-5.0); Anion Gap 13 (12-20); Blood Urea Nitrogen 33 mg/dL (9-16); Calcium 9.3 mg/dL (8.4-10.2); Carbon Dioxide 24 mmol/L (22-29); Chloride 110 mmol/L (96-108); Estimated Glomerular Filt Rate 14; Magnesium 2.3 mg/dL (1.6-2.6); Potassium 4.8 mmol/L (3.3-5.1); Sodium 142 mmol/L (135-145)
== END 2025-01-17 16:09 | disposition home or self-care (01) ==
LOC: HO.LAB 16:08
PROVIDERS: PCP Internal Medicine; Visit Provider Internal Medicine Nephrology
DX: N18.4 Chronic kidney disease, stage 4 (severe) (principal); N25.0 Renal osteodystrophy
CPT/HCPCS: 36415; 80051; 82040; 82306; 82310; 82565; 83735; 83970; 84100; 84520; 85025

== ENCOUNTER 2025-01-18 17:28 | Outpatient (REF) | payer MEDICARE, MEDICAID, SELFPAY ==
[2025-01-18 18:52] LABS: Appearance Urine Clear; Glucose Urine UA Negative (Negative); PH 7.5 (5.0-9.0); Specific Gravity - Urine <= 1.005 (1.005-1.025); UMIC TRIGGER UA YES
== END 2025-01-18 17:29 | disposition home or self-care (01) ==
LOC: HO.LNP 17:28
PROVIDERS: Visit Provider Internal Medicine Nephrology
DX: Z13.89 Encounter for screening for other disorder (principal)
CPT/HCPCS: 81001; 87086